=== PATIENT | female | born 1945 | race African-American/Black ===

== ENCOUNTER 2018-08-18 02:23 | Inpatient (IN) | payer MEDICARE, MEDICAID ==
[2018-08-18] MEDS ORDERED: Morphine 4 MG/ML VIAL ONE (03:25)
[2018-08-18] MEDS ORDERED: Ondansetron PF 4 MG/2 ML Vial ONE (03:25)
[2018-08-18 04:09] VITALS: BMI 22.4
[2018-08-18] MEDS ORDERED: Ondansetron ODT 4 MG TAB SL PRN (04:12)
[2018-08-18] MEDS ORDERED: Acetaminophen 325 MG TAB PO PRN ×2 (04:12→08:06)
[2018-08-18] MEDS ORDERED: Morphine 4 MG/ML VIAL SLOW IVP PRN (04:12)
[2018-08-18] MEDS ORDERED: Ondansetron PF 4 MG/2 ML Vial IVP PRN ×2 (04:12→08:06)
[2018-08-18] MEDS: Sodium Chloride 0.9% 1,000 ML IV SCH ×4 (04:24→21:02)
[2018-08-18] MEDS ORDERED: Bisacodyl 5 MG TAB PO PRN (08:06)
[2018-08-18] MEDS ORDERED: Bisacodyl 10 MG SUPP PR PRN (08:06)
[2018-08-18] MEDS ORDERED: Ondansetron ODT 4 MG TAB PO PRN (08:06)
[2018-08-18] MEDS ORDERED: hydrALAZINE 20 MG/ML VIAL SLOW IVP PRN (08:09)
[2018-08-18] MEDS ORDERED: Morphine 2 MG/ML SYRINGE SLOW IVP PRN (08:11)
[2018-08-18] MEDS: HYDROcodone/Acetaminophen 5/325 mg Tablet PO PRN (08:51)
[2018-08-18] MEDS: Famotidine 20 MG TAB PO SCH ×2 (08:51→20:12)
[2018-08-18] MEDS: Senokot S 8.6-50 MG TAB PO SCH ×2 (08:51→20:12)
[2018-08-18] MEDS: Piperacillin/Tazobactam 3.375 GM in Sodium Chloride 0.9% 100 ML IVPB SCH ×2 (09:06→15:02)
[2018-08-18 10:02] LABS: Hemoglobin A1c 5.4 % (4.0-6.0)
[2018-08-18 10:10] LABS: Lactic Acid 1.2 mmol/L (0.5-2.2)
--- NOTE | 2018-08-18 16:43 | HP ---
DATE OF ADMISSION: 08/18/2018 PRIMARY CARE PHYSICIAN: None. CHIEF COMPLAINT: Left breast pain. HISTORY OF PRESENT ILLNESS: The patient is a 73-year-old female with hypertension, degenerative joint disease and tobacco dependence, presented to the emergency room at [facility] with left breast pain that has been worsening over the last week. Approximately 4 weeks ago, the patient noticed swelling along with pain from her left breast that is progressively getting worse. Around 2 weeks ago, she noticed bleeding from the skin lesions over the left breast. She also lost approximately 15-20 pounds over the past year. No nausea, vomiting, diarrhea, constipation or injuries reported. She also has generalized body aches, especially in the joints. She denies any other symptoms. In the emergency room, initial vital signs showed temperature 97.9, respirations 20, pulse of 119 with blood pressure 133/80 with O2 saturation of 96% on room air. She received vancomycin, ceftriaxone, morphine with IV fluid in the emergency room. PAST MEDICAL HISTORY: 1. Hypertension. 2. Degenerative joint disease. PAST SURGICAL HISTORY: Left knee surgery. ALLERGIES: No known drug allergies. CURRENT HOME MEDICATIONS: 1. Hydrochlorothiazide 25 mg daily. 2. Meloxicam 15 mg daily. SOCIAL HISTORY: The patient currently lives at home with her family. She has approximately 60-[id number]-[id number] smoking history. She continues to smoke up to half pack a day. She also has a history of cannabis abuse in the past. Full code. Makes her own decisions with the help of her family. FAMILY HISTORY: Positive for heart disease. She denies any malignancy in her family. REVIEW OF SYSTEMS: The following complete review of systems was negative, unless otherwise mentioned in the HPI or below: Constitutional: Weight loss or gain, ability to conduct usual activities. Skin: Rash, itching. Eyes: Double vision, pain. ENT/Mouth: Nose bleeding, neck stiffness, pain, tenderness. Cardiovascular: Palpitations, dyspnea on exertion, orthopnea. Respiratory: Shortness of breath, wheezing, cough, hemoptysis, fever or night sweats. Gastrointestinal: Poor appetite, abdominal pain, heartburn, nausea, vomiting, constipation, or diarrhea. Genitourinary: Urgency, frequency, dysuria, nocturia. Musculoskeletal: Pain, swelling. Neurologic/Psychiatric: Anxiety, depression. Allergy/Immunologic: Skin rash, bleeding tendency. PHYSICAL EXAMINATION: VITAL SIGNS: As discussed above. GENERAL: A 78-year-old female, in mild distress due to significant pain. SKIN: Examination shows significant erythema of the left breast along with ulceration. The nipple was retracted. There was some purulent discharge noted as well. There was diffuse tenderness. The lymph nodes could not be palpable in the left axilla due to significant pain. HEENT: Head, atraumatic, normocephalic. Sclerae are anicteric. Moist mucous membrane. No oral lesion. NECK: Supple, no JVD, no carotid bruit. LUNGS: Clear to auscultation bilaterally. No wheezing, rales or rhonchi. HEART: S1, S2 present. Regular rate and rhythm. No murmur, rubs or gallops appreciated. ABDOMEN: Soft, nontender, bowel sounds present. EXTREMITIES: No edema or calf tenderness. NEUROLOGIC: Grossly nonfocal, moves all four extremities. PSYCHIATRIC: Alert, awake and oriented x3. LABORATORY DATA: CBC showed WBC 6.5, hemoglobin 17, hematocrit 52.3, platelet 398,000. Chemistries showed sodium 134, potassium 3.7, chloride 98, bicarbonate 23, BUN 25, creatinine 1.57. Lactic acid 2.8. Repeat lactic acid 1.2. IMAGING: Chest x-ray by my review was negative for infiltrate. Telemetry monitoring by my review showed sinus tachycardia. IMPRESSION: 1. Sepsis with acute organ dysfunction secondary to left mastitis, rule out malignancy. 2. Hypertension. 3. Tobacco dependence. 4. Cannabis abuse. 5. Dehydration. 6. Acute kidney injury versus chronic kidney disease. 7. Mild hyponatremia. 8. Lactic acidosis secondary to sepsis with acute organ dysfunction. PLAN: The patient will be monitored on the medical floor. We will continue empiric antibiotics. Pain control with IV morphine as well as hydrocodone. IV fluids. Tobacco cessation was advised. Consult Infectious Disease. I discussed with General Surgery, Dr. Posadas. Dr. Posadas recommended follow up with Dr. Geller as outpatient for breast biopsy to rule out malignancy. We will consult Wound Care. Vital signs q.4 hourly. Plan of care was discussed with the patient in detail. She stated understanding. MTDD
--- NOTE | 2018-08-18 21:27 | CON ---
DATE OF CONSULTATION: 08/18/2018 REASON FOR CONSULTATION: Left breast inflammatory process. HISTORY OF PRESENT ILLNESS: A 73-year-old first admission to this hospital with a history of hyperte nsion, degenerative joint disease, reportedly developed what she describes as a boil under the left b reast. It is not clear exactly when and she states that maybe a month ago or maybe longer. It has e xtended now to the remainder of the breast and she has this inflammatory process and she was admitted for management. She has lost 15-20 pounds over the past year. Never had a mammogram. No fever or chills, no headaches, no visual symptoms, sore throat, odynophagia, dysphagia, no dyspnea, no back pa in, no abdominal pain or diarrhea. No genitourinary symptoms. No joint symptoms. PAST MEDICAL HISTORY: 1. Hypertension. 2. Degenerative joint disease. PAST SURGICAL HISTORY: Left knee arthroscopy. ALLERGIES: None. MEDICATIONS AT HOME: Hydrochlorothiazide, meloxicam and here she is on [place], Dulcolax, Pepcid, Apre soline, morphine, Zofran, Zosyn. OBJECTIVE: VITAL SIGNS: With normal temperature, blood pressure 103/67, pulse 89, respirations 18, O2 sat 93%. SKIN: Shows this area of inflammatory change encompassing the entire left breast with areas of darke ry of the skin and epidermolysis. The entire breast has a very hard consistency with a mass-like c onsistency. The nipple is retracted and edema into the underlying breast tissue and masses. She ally ears to have a hard in the lymph node in the left axilla. There are no other areas of lymphadenopath y. HEENT: Ocular movements are conjugate. Oral cavity normal. NECK: Supple. LUNGS: Symmetric clear breath sounds. HEART: S1, S2, regular rate. No S3, S4. ABDOMEN: Soft, not distended or tender. No ascites. No bladder distention. EXTREMITIES: No joint inflammatory activity outside the area of involvement. NEUROLOGIC: Nonfocal including cognitive function. LABORATORY DATA: White cell count 6.5, hemoglobin 17, platelets 398 with a normal differential. Shannan priscila with a sodium 134, creatinine 1.57. Lactic acid 1.2, calcium 10.2, AST 65, ALT 35, albumin 3. 6. Urinalysis with greater than 50 to too numerous to count wbc's. Chest x-ray with no lung process . ASSESSMENT: Inflammatory mass left breast, likely inflammatory breast cancer. I do not believe that this patient has superimposed infection. The management would be Oncology consultation and she will need a biopsy and treatment likely with chemotherapy and surgical resection followed by radiation th [place]. Discontinue Zosyn.
[2018-08-19] MEDS: HYDROcodone/Acetaminophen 5/325 mg Tablet PO PRN ×2 (00:10→09:58)
[2018-08-19] MEDS: Sodium Chloride 0.9% 1,000 ML IV SCH ×2 (03:46→10:53)
[2018-08-19 04:39] LABS: #Eosinphils 0.1 thou/uL (0.0-0.7); #Lymphocytes 1.7 thou/uL (1.20-3.40); #Monocytes 0.5 thou/uL (0.11-0.59); #Neutrophils 2.9 thou/uL (1.40-6.50); %Basophils 0.3 % (0.0-1.0); %Eosinophils 1.4 % (0.0-10.0); %Lymphocytes 32.4 % (21.0-51.0); %Monocytes 10.1 % (0.0-10.0); %Neutrophils 55.9 % (42.0-75.0); Hemoglobin 13.1 g/dL (12.0-16.0); Mean Corpuscular HGB CONC 31.7 g/dL (32.0-36.0); Mean Corpuscular Volume 97.8 fL (78.0-98.0); Mean Platelet Volume 7.1 fL (7.4-10.4); Platelet Count 302 thou/uL (130-400); RBC Distribution Width 12.1 % (11.5-14.5); Red Blood Cell (RBC) Count 4.22 mill/uL (4.20-5.40); White Blood Cell (WBC) Count 5.3 thou/uL (4.8-10.8)
[2018-08-19 05:12] LABS: Anion Gap 10 mmol/L (10-20); BUN (Urea Nitrogen) 22 mg/dL (9.8-20.1); Calc. Creatinine Clearance 64 mL/min (70-130); Calcium 8.2 mg/dL (7.8-10.44); Carbon Dioxide 23 mmol/L (23-31); Chloride 108 mmol/L (98-107); Estimated GFR-MDRD 82; Glucose 101 mg/dL (83-110); Potassium 3.3 mmol/L (3.5-5.1); Sodium 138 mmol/L (136-145)
[2018-08-19] MEDS ORDERED: Potassium Chloride 20 MEQ TAB PO SCH (08:00)
[2018-08-19] MEDS: Senokot S 8.6-50 MG TAB PO SCH (08:05)
[2018-08-19] MEDS: Famotidine 20 MG TAB PO SCH (08:05)
--- NOTE | 2018-08-19 13:18 | ULT ---
LEFT BREAST ULTRASOUND: History: Bleeding and irregularity involving the left breast x 2-3 weeks. Comparison: None. Technique: Targeted sonographic imaging of the left breast was performed. Static images are reviewed. Additional imaging was performed in the presence of the radiologist. FINDINGS: Static and real-time images demonstrate extensive irregularity involving the breast parenchyma with h eterogeneous echotexture and irregular margination. Small areas of shadowing are noted. The left danitza st skin appears to be ulcerative and irregular with patchy areas of thickening. These features are wo rrisome for inflammatory breast carcinoma until proven otherwise. IMPRESSION: Probable left breast inflammatory cancer until proven otherwise. General surgical consultation is rec ommended. Results of study discussed with Dr. Uirbe 11:21 a.m. on 08-19-18. Code IMELDA POS: RAFIQ
[2018-08-19 14:06] VITALS: BP 122/70; TEMP 98.1
--- NOTE | 2018-08-19 20:17 | DIS ---
DATE OF DISCHARGE: 08/19/2018 DISCHARGE DISPOSITION: Home. FOLLOWUP: Follow up with primary care physician at [facility] in 1 week. Follow up with Dr Sascha Li on Friday at 11:30 a.m. ALLERGIES: No known drug allergies. The patient was seen and examined on the day of discharge. Denies any new complaints. BRIEF HOSPITAL COURSE: The patient is a 73-year-old female with hypertension and tobacco dependence, presented to the hospital with intractable pain over her left breast that has been ongoing for last 2-3 weeks. She has also lost approximately 15-20 pounds over the past year. Please refer to the his tory and physical for further details. The patient was admitted to the hospital with a diagnosis of sepsis secondary to suspected left masti tis. She was started on IV antibiotics. She was evaluated by Dr. Rogel. According to Dr. Rogel, th e patient probably has an inflammatory breast cancer. Dr. Rogel discontinued IV antibiotics. The martha ramon had a left breast ultrasound done today that showed probable left breast inflammatory cancer. She will follow up with Dr. Li on Friday for possible biopsy. Plan of care was discussed with t dalila patient and the family in detail. They stated understanding. FINAL DIAGNOSES: 1. Systemic inflammatory response syndrome secondary to suspected inflammatory left breast cancer, m astitis ruled out. 2. . 3. Tobacco dependence. 4. Cannabis abuse. 5. Dehydration. 6. Acute kidney injury on chronic kidney disease stage 2. 7. Hypokalemia, replaced. 8. Mild hyponatremia. 9. Lactic acidosis secondary to dehydration. 10. Repeat BMP next week is recommended. Primary care physician is advised to follow.
== END 2018-08-19 14:22 | disposition home or self-care (01) | DRG 598 ==
LOC: ERS 02:23 → 2NO 03:47 → T4-B 12:32
PROVIDERS: ADMIT Internal Medicine; ATTEND Internal Medicine
DX: C50.912 Malignant neoplasm of unspecified site of left female breast (principal); R65.10 Systemic inflammatory response syndrome (SIRS) of non-infectious origin without acute organ dysfunction; N17.9 Acute kidney failure, unspecified; E87.1 Hypo-osmolality and hyponatremia; E87.2 Acidosis; I10 Essential (primary) hypertension; M19.90 Unspecified osteoarthritis, unspecified site; Z79.899 Other long term (current) drug therapy; F17.210 Nicotine dependence, cigarettes, uncomplicated; F12.10 Cannabis abuse, uncomplicated; E86.0 Dehydration; N18.2 Chronic kidney disease, stage 2 (mild); E87.6 Hypokalemia
CPT/HCPCS: 36415; 80048; 83036; 83605; 85025; 87086; 90471; 90662; 96374; 96375; 99406; G0008; J2270; J2405; J2543; J7050; Q0162

== ENCOUNTER 2018-08-25 07:44 | Outpatient (CLI) | payer MEDICARE, MEDICAID | END 2018-08-25 07:45 | disposition home or self-care (01) | LOC: BICMAMMO 07:44 | PROVIDERS: ATTEND Surgery | DX: N64.59 Other signs and symptoms in breast (principal) | CPT/HCPCS: 77066; G0279 ==

== ENCOUNTER 2018-08-28 12:10 | Day surgery (SDC) | payer MEDICARE, MEDICAID ==
[2018-08-27 14:25] VITALS: BMI 23.3
[~2018-08-28 12:10] MED LIST: Dexamethasone 20 MG/5 ML VIAL ONE; Lidocaine 1% PF 5 ML VIAL ONE; Ondansetron PF 4 MG/2 ML Vial ONE; PHENYLEPHRINE-NS 100 MCG/ML 10 ML SYRINGE ONE; PROPOFOL 200 MG/20 ML VIAL ONE; ePHEDrine/0.9% NaCl/PF SYRINGE 50 mg/10 ml ONE
[2018-08-28] MEDS ORDERED: Ketorolac Tromethamine 30 MG/ML VIAL ONE (13:09)
[2018-08-28] MEDS ORDERED: CEFAZOLIN 2 GM/50 ML BAG ONE (13:09)
[2018-08-28] MEDS ORDERED: Lidocaine 2% PF 5 ML VIAL ONE (15:34)
[2018-08-28] MEDS ORDERED: Bupivacaine/Epinephrine 0.25% 30 ML VIAL ONE (15:34)
[2018-08-28] MEDS ORDERED: Fentanyl 100 MCG/2 ML VIAL ONE (15:44)
[2018-08-28] MEDS ORDERED: Midazolam HCl 2 mg/2 ml Vial ONE (15:44)
[2018-08-28] MEDS ORDERED: HYDROcodone/Acetaminophen 5/325 mg Tablet ONE (18:30)
--- NOTE | 2018-08-28 20:03 | RAD ---
SINGLE VIEW OF THE CHEST: Comparison: 08-17-18 History: Post op Mediport placement. FINDINGS: Single view of the chest shows a normal sized cardiomediastinal silhouette with atherosclerotic calci fications in the aorta. There is a right sided Mediport with its tip in the superior vena cava. No pn eumothorax is seen. There is no evidence of consolidation, mass, or pleural effusion. IMPRESSION: Status post Mediport placement without evidence of complication. POS: KAYLEE
--- NOTE | 2018-09-01 16:28 | OP ---
DATE OF PROCEDURE: 08/28/2018 PROCEDURE PERFORMED: Right subclavian MediPort and biopsy of right inferior breast skin. PREOPERATIVE DIAGNOSIS: Inflammatory breast cancer of the left breast. POSTOPERATIVE DIAGNOSIS: Inflammatory breast cancer of the left breast. HISTORY: Ms. Sinha is a 73-year-old woman, who presented with severe locally advanced inflammatory breast cancer of the left breast. She underwent biopsies to confirm for diagnosis and a contralateral mammogram, which showed some suspicious skin thickening in the inferior breast. Recommendation was made to proceed to the operating room for MediPort placement for chemotherapy, as well as a skin biopsy of the right inferior breast. DESCRIPTION OF PROCEDURE: After informed consent was obtained and appropriate preoperative antibiotics were administered, the patient was taken to the operating room, where she was placed in supine position and anesthesia was administered. She was prepped and draped in a standard sterile fashion and local anesthesia infused through the skin and subcutaneous tissues at the right deltopectoral groove. The patient was placed into Trendelenburg position and the right subclavian vein was accessed by the standard approach without difficulty. There was excellent flow of dark venous nonpulsatile blood and a wire threaded easily without resistance. This was confirmed to be in the superior vena cava by fluoroscopy. Additional local anesthesia was infused to the skin and subcutaneous tissues of the right chest and a skin incision was made. The subcutaneous pocket was created and the low-profile MediPort tubing placed into the pocket and secured with Prolene sutures. A sheath and dilator were then placed over the wire and the wire and dilator removed leaving the sheath in place, and MediPort tubing was obtained and clamped. The tubing was advanced through the sheath, which was split and removed leaving the tubing in place. The tip was confirmed to be in good position in the superior vena cava. The tubing was then clamped at the level of the skin, cut, and secured to the MediPort hub. The MediPort was aspirated using a Arevalo needle and there was excellent flow of dark venous nonpulsatile blood and the port flushed easily without resistance. The subcutaneous tissues were reapproximated with a 3-0 running Monocryl suture and the skin was closed with a running 4-0 subcuticular Monocryl suture and Dermabond dressing placed. Attention was then turned to the skin biopsy. The most thickened area of the right inferior breast was identified. Local anesthesia was infused and a punch biopsy obtained. This was sent to pathology and the skin incision closed with a nylon suture. Sterile dressing was applied and the patient was taken to Recovery in good condition. ESTIMATED BLOOD LOSS: Minimal. COMPLICATIONS: There were no complications. SPECIMENS: Right breast skin biopsy. Job ID: [id number] [facility]
== END 2018-08-28 18:38 | disposition home or self-care (01) ==
LOC: SDC 12:10
PROVIDERS: ATTEND Surgery
PROC: 0JH63WZ Insertion of Totally Implantable Vascular Access Device into Chest Subcutaneous Tissue and Fascia, Percutaneous Approach (ICD-10-PCS; principal; 2018-08-28)
PROC: 0HBU3ZX Excision of Left Breast, Percutaneous Approach, Diagnostic (ICD-10-PCS; 2018-08-28)
DX: C50.912 Malignant neoplasm of unspecified site of left female breast (principal); M10.9 Gout, unspecified; F41.9 Anxiety disorder, unspecified; F17.200 Nicotine dependence, unspecified, uncomplicated; I10 Essential (primary) hypertension; Z79.1 Long term (current) use of non-steroidal anti-inflammatories (NSAID); Z79.899 Other long term (current) drug therapy
CPT/HCPCS: 19101; 36561; 71045; 88305; C1788; J0131; J1100; J1642; J1885; J2001; J2250; J2405; J2704; J3010

== ENCOUNTER 2018-09-01 12:26 | Outpatient (CLI) | payer MEDICARE, MEDICAID | END 2018-09-01 12:27 | disposition home or self-care (01) | LOC: ULT 12:26 | PROVIDERS: ATTEND Internal Medicine Hematology & Oncology | DX: Z51.11 Encounter for antineoplastic chemotherapy (principal); C50.112 Malignant neoplasm of central portion of left female breast; I08.1 Rheumatic disorders of both mitral and tricuspid valves; Z79.899 Other long term (current) drug therapy | CPT/HCPCS: 93306 ==

== ENCOUNTER 2018-09-03 12:29 | Outpatient (CLI) | payer MEDICARE, MEDICAID ==
--- NOTE | 2018-09-03 17:41 | PET ---
NUCLEAR MEDICINE FDG PET CT: (Positron Emission Tomography) DATE: 09/03/18 HISTORY: 73-year-old female with left inflammatory breast cancer, C50.112, initial staging. The patient has no t had chemotherapy or radiation therapy. COMPARISON: None. TECHNIQUE: IV injection F-18 Fluorodeoxyglucose (FDG) dose: 12.2 mCi PET and attenuation-correction CT performed from skull base to proximal thighs. FINDINGS: SUV (standard uptake value) numbers given are QCLR maximum SUV's: In the region of the left anterolateral oral cavity, there is a region of very high FDG uptake, SUV 1 1.2. Perhaps this is related to infectious/inflammatory process, or recent dental extraction or other procedure. Neoplasm could also have this appearance, but clinical correlation is recommended. Increa sed uptake in the left posterior larynx in the vicinity of the left cricoarytenoid joint could be due to vocalization. Neoplasm can also have this appearance, but is considered less likely. Recommend co rrelation with laryngoscopy (SUV 4.5). There is no evidence of malignant cervical lymphadenopathy. There is a large soft tissue density lesion occupying the left breast with SUV of 6.5 consistent with the history of breast cancer. There is also diffuse fat stranding and soft tissue thickening through out the dermis of the left breast with broad regions of borderline increased uptake (SUV 3.0). In the medial aspect of the left breast skin, there are two small foci of especially increased FDG up take, with SUV's of 4.7 and 4.6, which may represent two foci of actual neoplastic activity rather th an just inflammation. There is diffusely increased thickness of the left pectoralis major and left pectoralis minor muscles . There are regions of borderline increased uptake in these muscle (SUV 2.7), which are indeterminate for tumor activity. Similarly, a small focus resting on the anterior surface of the sternum, has SUV of 2.5. At the left axillary skin surface, there is a region of soft tissue thickening with SUV of 3 .6. These could either represent postsurgical or postbiopsy changes, or neoplastic activity. Deep to that, at the junction between the left axilla and breast, there is a broader region of increased FDG uptake, with SUV of 3.0 with similar differential diagnosis. There is a small left pleural effusion. In the posterior basilar portion of the left lower lobe, ther e is a moderate sized region of consolidation of lung with SUV of 3.7, favored to represent infectiou s or inflammatory changes. There are adjacent nodular interstitial densities, including tree-in-bud pattern, in a broad region a t the left lower lobe, and the medial portion of the anterior segment of the left upper lobe. These c ould represent an infectious/inflammatory process. There is a possibility that this could also repres ent lymphangitic carcinomatosis. These do not have increased FDG uptake. No definite evidence of hilar or mediastinal lymphadenopathy. Left anterior hilar lymph node has SUV of 2.7. No pleural effusion on the contralateral right side. No convincing evidence of metastatic dis ease in the abdominal cavity or pelvic cavity. There is unilateral extensive subcutaneous edema or hematoma in the left flank soft tissues posterola teral and superficial to the lateral abdominal wall, without increased FDG uptake. There is a slightl y enlarged contralateral right axillary lymph node with SUV of 1.8. IMPRESSION: 1. Left breast cancer, with apparently large main tumor vs postoperative hematoma. 2. Extensive edema in the left breast overlying skin, and left pectoralis musculature, with bord beau or minimally increased FDG uptake, are evidence for inflammatory breast cancer. 3. Two small focal dermal lesions with increased FDG uptake at the medial skin of the left breas t could represent tumor nodules or postsurgical or postbiopsy sites. 4. The same is true for an area of increased uptake in the superficial portion of the left axill a. 5. Small left pleural effusion and left lower lobe consolidation, favored to represent pneumonit is. 6. No evidence of distant metastasis. 7. Increased FDG uptake in the left side of the oral cavity and in the larynx. These are probabl y not areas of neoplastic activity, but direct visualization is recommended. 8. Broad region of edema which could represent a hematoma in the superficial soft tissues of the left flank. 9. Tree-in-bud patterns at the anterior segment of the left upper lobe and in the left lower lob e. Possibilities include infectious peribronchiolitis versus lymphangitic carcinomatosis. SULEIMAN Jaffe POS: RAFIQ
== END 2018-09-03 12:30 | disposition home or self-care (01) ==
LOC: PET 12:29
PROVIDERS: ATTEND Internal Medicine Hematology & Oncology
DX: C50.912 Malignant neoplasm of unspecified site of left female breast (principal); N64.89 Other specified disorders of breast; J90 Pleural effusion, not elsewhere classified; J18.1 Lobar pneumonia, unspecified organism
CPT/HCPCS: 78815; A9552

== ENCOUNTER 2018-09-25 09:24 | Day surgery (SDC) | payer MEDICARE, MEDICAID ==
[2018-09-25] MEDS ORDERED: Sodium Chloride 0.9% 40 ML ONE (09:28)
[2018-09-25 10:39] VITALS: BP 160/88; TEMP 98.5
[2018-09-25] MEDS ORDERED: DOXORUBICIN SLOW IVP SCH (10:45)
[2018-09-25] MEDS ORDERED: ADMIXTURE FEE CHEMO SLOW IVP SCH (10:45)
[2018-09-25] MEDS ORDERED: Cyclophosphamide 1 GM in Sodium Chloride 0.9% 250 ML 250 ML IVPB SCH (11:00)
[2018-09-25] MEDS ORDERED: Pegfilgrastim Onpro 6 MG/0.6 ML SQ SCH (11:00)
[2018-09-25] MEDS ORDERED: PALONOSETRON HCL 0.05 MG/ML 5 ML VIAL IVP SCH (11:00)
[2018-09-25] MEDS ORDERED: Dexamethasone 10 MG/ML VIAL SLOW IVP SCH (11:00)
[2018-09-25] MEDS ORDERED: DOXORUBICIN 100 MG in Sodium Chloride 0.9% 50 ML IVPB SCH (11:30)
== END 2018-09-25 15:10 | disposition home or self-care (01) ==
LOC: ONC/OP 09:24
PROVIDERS: ATTEND Internal Medicine Hematology & Oncology
DX: Z51.11 Encounter for antineoplastic chemotherapy (principal); C50.112 Malignant neoplasm of central portion of left female breast; F33.1 Major depressive disorder, recurrent, moderate
CPT/HCPCS: 80053; 82248; 83615; 84100; 84550; 96375; 96377; 96413; 96417; 99211; G0463; J1100; J2469; J2505; J7050; J9000; J9070

== ENCOUNTER 2018-10-09 09:36 | Day surgery (SDC) | payer MEDICARE, MEDICAID ==
[2018-10-09] MEDS ORDERED: Sodium Chloride 0.9% 20 ML ONE (09:48)
[2018-10-09] MEDS ORDERED: DOXORUBICIN 100 MG in Sodium Chloride 0.9% 50 ML IVPB SCH (10:00)
[2018-10-09] MEDS ORDERED: Pegfilgrastim Onpro 6 MG/0.6 ML SQ SCH (10:00)
[2018-10-09] MEDS ORDERED: Dexamethasone 10 MG/ML VIAL SLOW IVP SCH (10:00)
[2018-10-09] MEDS ORDERED: PALONOSETRON HCL 0.05 MG/ML 5 ML VIAL IVP SCH (10:00)
[2018-10-09] MEDS ORDERED: Cyclophosphamide 1 GM in Sodium Chloride 0.9% 250 ML 250 ML IVPB SCH (10:00)
[2018-10-09 10:17] VITALS: BP 109/61; TEMP 98.3
== END 2018-10-09 13:41 | disposition home or self-care (01) ==
LOC: ONC/OP 09:36
PROVIDERS: ATTEND Internal Medicine Hematology & Oncology
DX: Z51.11 Encounter for antineoplastic chemotherapy (principal); C50.112 Malignant neoplasm of central portion of left female breast; F33.1 Major depressive disorder, recurrent, moderate
CPT/HCPCS: 36415; 80053; 82248; 83615; 84100; 84550; 96375; 96377; 96413; 96417; J1100; J1642; J2469; J2505; J7050; J9000; J9070

== ENCOUNTER 2018-10-30 11:54 | Day surgery (SDC) | payer MEDICARE, MEDICAID ==
[2018-10-30 12:12] VITALS: BP 146/73; TEMP 98.6
[2018-10-30] MEDS ORDERED: DOXORUBICIN 100 MG in Sodium Chloride 0.9% 50 ML IVPB SCH (12:15)
[2018-10-30] MEDS ORDERED: Cyclophosphamide 1 GM in Sodium Chloride 0.9% 250 ML 250 ML IVPB SCH (12:15)
[2018-10-30] MEDS ORDERED: Pegfilgrastim Onpro 6 MG/0.6 ML SQ SCH (12:15)
[2018-10-30] MEDS ORDERED: Dexamethasone 10 MG/ML VIAL SLOW IVP SCH (12:15)
[2018-10-30] MEDS ORDERED: PALONOSETRON HCL 0.05 MG/ML 5 ML VIAL IVP SCH (12:15)
== END 2018-10-30 15:32 | disposition home or self-care (01) ==
LOC: ONC/OP 11:54
PROVIDERS: ATTEND Internal Medicine Hematology & Oncology
DX: Z51.11 Encounter for antineoplastic chemotherapy (principal); C50.112 Malignant neoplasm of central portion of left female breast; F33.1 Major depressive disorder, recurrent, moderate; Z79.1 Long term (current) use of non-steroidal anti-inflammatories (NSAID); Z79.899 Other long term (current) drug therapy
CPT/HCPCS: 36415; 80053; 82248; 83615; 84100; 84550; 96375; 96377; 96413; 96417; J1100; J2469; J2505; J7050; J9000; J9070

== ENCOUNTER 2018-11-13 00:08 | Day surgery (SDC) | payer MEDICARE, MEDICAID ==
[2018-11-13] MEDS ORDERED: Dexamethasone 10 MG/ML VIAL SLOW IVP SCH (06:15)
[2018-11-13] MEDS ORDERED: DOXORUBICIN 100 MG in Sodium Chloride 0.9% 50 ML IVPB SCH (06:15)
[2018-11-13] MEDS ORDERED: PALONOSETRON HCL 0.05 MG/ML 5 ML VIAL IVP SCH (06:15)
[2018-11-13] MEDS ORDERED: Pegfilgrastim Onpro 6 MG/0.6 ML SQ SCH (06:15)
[2018-11-13] MEDS ORDERED: Cyclophosphamide 1 GM in Sodium Chloride 0.9% 250 ML 250 ML IVPB SCH (06:15)
[2018-11-13] MEDS ORDERED: Sodium Chloride 0.9% 20 ML ONE (11:30)
[2018-11-13 12:35] VITALS: BP 154/76; TEMP 98.7
== END 2018-11-13 13:39 | disposition home or self-care (01) ==
LOC: ONC/OP 00:08
PROVIDERS: ATTEND Internal Medicine Hematology & Oncology
DX: Z51.11 Encounter for antineoplastic chemotherapy (principal); C50.112 Malignant neoplasm of central portion of left female breast; F33.1 Major depressive disorder, recurrent, moderate; F41.9 Anxiety disorder, unspecified; Z17.1 Estrogen receptor negative status [ER-]
CPT/HCPCS: 36415; 80053; 82248; 83615; 84100; 84550; 96375; 96377; 96413; 96417; J1100; J1642; J2469; J2505; J7050; J9000; J9070

== ENCOUNTER 2018-11-27 11:04 | Day surgery (SDC) | payer MEDICARE, MEDICAID ==
[~2018-11-27 11:04] MED LIST changes: +Dexamethasone 10 MG in Sodium Chloride 0.9% 50 ML IVPB SCH; -Dexamethasone 20 MG/5 ML VIAL ONE; -Lidocaine 1% PF 5 ML VIAL ONE; -Ondansetron PF 4 MG/2 ML Vial ONE; +PACLITAXEL IV SCH; -PHENYLEPHRINE-NS 100 MCG/ML 10 ML SYRINGE ONE; -PROPOFOL 200 MG/20 ML VIAL ONE; +SODIUM CHLORIDE 0.9% IV SCH; +diphenhydrAMINE 50 MG/ML VIAL IVP PRN; -ePHEDrine/0.9% NaCl/PF SYRINGE 50 mg/10 ml ONE
[2018-11-27] MEDS ORDERED: Sodium Chloride 0.9% 20 ML ONE (11:06)
[2018-11-27 11:48] VITALS: BP 102/64; TEMP 98.5
== END 2018-11-27 13:04 | disposition home or self-care (01) ==
LOC: ONC/OP 11:04
PROVIDERS: ATTEND Internal Medicine Hematology & Oncology
DX: Z51.11 Encounter for antineoplastic chemotherapy (principal); C50.112 Malignant neoplasm of central portion of left female breast; F33.1 Major depressive disorder, recurrent, moderate; Z17.1 Estrogen receptor negative status [ER-]; Z79.899 Other long term (current) drug therapy
CPT/HCPCS: 36415; 80053; 82248; 83615; 84100; 84550; 96375; 96413; J1100; J1642; J7050; J9267

== ENCOUNTER 2018-12-04 10:47 | Day surgery (SDC) | payer MEDICARE, MEDICAID ==
[2018-12-04 11:14] VITALS: BP 123/76; TEMP 98.6
== END 2018-12-04 13:20 | disposition home or self-care (01) ==
LOC: ONC/OP 10:47
PROVIDERS: ATTEND Internal Medicine Hematology & Oncology
DX: Z51.11 Encounter for antineoplastic chemotherapy (principal); C50.112 Malignant neoplasm of central portion of left female breast; F33.1 Major depressive disorder, recurrent, moderate; Z17.1 Estrogen receptor negative status [ER-]
CPT/HCPCS: 96375; 96413; J1100; J1200; J7050; J9267

== ENCOUNTER 2018-12-11 10:55 | Day surgery (SDC) | payer MEDICARE, MEDICAID ==
[2018-12-11] MEDS ORDERED: Sodium Chloride 0.9% 30 ML ONE (11:04)
== END 2018-12-11 13:26 | disposition home or self-care (01) ==
LOC: ONC/OP 10:55
PROVIDERS: ATTEND Internal Medicine Hematology & Oncology
DX: Z51.11 Encounter for antineoplastic chemotherapy (principal); C50.112 Malignant neoplasm of central portion of left female breast; F33.1 Major depressive disorder, recurrent, moderate
CPT/HCPCS: 96375; 96413; J1100; J1200; J1642; J7050; J9267

== ENCOUNTER 2018-12-21 11:50 | Day surgery (SDC) | payer MEDICARE, MEDICAID ==
[~2018-12-21 11:50] MED LIST changes: -Dexamethasone 10 MG in Sodium Chloride 0.9% 50 ML IVPB SCH; +Dexamethasone 4 MG in Sodium Chloride 0.9% 50 ML IVPB SCH; +Dexamethasone 4 mg/ml Vial SLOW IVP SCH; +Sodium Chloride 0.9% 20 ML ONE
[2018-12-21] MEDS ORDERED: Dexamethasone 4 mg/ml Vial SLOW IVP SCH (12:15)
[2018-12-21] MEDS ORDERED: diphenhydrAMINE 50 MG/ML VIAL ONE (12:33)
[2018-12-21 12:38] VITALS: BP 141/76; TEMP 98.8
[2018-12-21] MEDS ORDERED: PACLITAXEL IVPB SCH (13:00)
[2018-12-21] MEDS ORDERED: SODIUM CHLORIDE 0.9% IVPB SCH (13:00)
== END 2018-12-21 16:59 | disposition home or self-care (01) ==
LOC: ONC/OP 11:50
PROVIDERS: ATTEND Internal Medicine Hematology & Oncology
DX: Z51.11 Encounter for antineoplastic chemotherapy (principal); C50.112 Malignant neoplasm of central portion of left female breast; Z79.1 Long term (current) use of non-steroidal anti-inflammatories (NSAID); Z79.899 Other long term (current) drug therapy; F33.1 Major depressive disorder, recurrent, moderate
CPT/HCPCS: 36415; 85025; 96375; 96413; J1100; J1200; J1642; J7050; J9267

== ENCOUNTER 2019-01-01 10:33 | Day surgery (SDC) | payer MEDICARE, MEDICAID ==
[~2019-01-01 10:33] MED LIST changes: -Dexamethasone 4 mg/ml Vial SLOW IVP SCH; +Dexamethasone Sod Phosphate 4 MG in Sodium Chloride 0.9% 50 ML IVPB SCH; -PACLITAXEL IV SCH; +PACLITAXEL IVPB SCH; -SODIUM CHLORIDE 0.9% IV SCH; +SODIUM CHLORIDE 0.9% IVPB SCH; -Sodium Chloride 0.9% 20 ML ONE
[2019-01-01] MEDS ORDERED: Sodium Chloride 0.9% 30 ML ONE (10:41)
== END 2019-01-01 12:52 | disposition home or self-care (01) ==
LOC: ONC/OP 10:33
PROVIDERS: ATTEND Internal Medicine Hematology & Oncology
DX: Z51.11 Encounter for antineoplastic chemotherapy (principal); C50.112 Malignant neoplasm of central portion of left female breast; F33.1 Major depressive disorder, recurrent, moderate; Z79.1 Long term (current) use of non-steroidal anti-inflammatories (NSAID); Z79.899 Other long term (current) drug therapy
CPT/HCPCS: 96375; 96413; J1100; J1200; J1642; J7050; J9267

== ENCOUNTER 2019-01-08 10:15 | Day surgery (SDC) | payer MEDICARE, MEDICAID ==
[~2019-01-08 10:15] MED LIST changes: -Dexamethasone 4 MG in Sodium Chloride 0.9% 50 ML IVPB SCH
[2019-01-08] MEDS ORDERED: Sodium Chloride 0.9% 20 ML ONE (10:26)
[2019-01-08 12:50] VITALS: BP 153/74; TEMP 98.6
== END 2019-01-08 12:53 | disposition home or self-care (01) ==
LOC: ONC/OP 10:15
PROVIDERS: ATTEND Internal Medicine Hematology & Oncology
DX: Z51.11 Encounter for antineoplastic chemotherapy (principal); C50.112 Malignant neoplasm of central portion of left female breast; F33.1 Major depressive disorder, recurrent, moderate; Z88.8 Allergy status to other drugs, medicaments and biological substances
CPT/HCPCS: 96375; 96413; J1100; J1642; J7050; J9267

== ENCOUNTER 2019-01-14 10:27 | Day surgery (SDC) | payer MEDICARE, MEDICAID ==
[~2019-01-14 10:27] MED LIST changes: +Dexamethasone 4 MG in Sodium Chloride 0.9% 50 ML IVPB SCH; -Dexamethasone Sod Phosphate 4 MG in Sodium Chloride 0.9% 50 ML IVPB SCH; +EPOETIN ALFA-EPBX (ESRD) 40,000 UNIT/ML VIAL SC SCH
[2019-01-14] MEDS ORDERED: Sodium Chloride 0.9% 20 ML ONE (11:45)
== END 2019-01-14 16:26 | disposition home or self-care (01) ==
LOC: ONC/OP 10:27
PROVIDERS: ATTEND Internal Medicine Hematology & Oncology
DX: Z51.11 Encounter for antineoplastic chemotherapy (principal); C50.112 Malignant neoplasm of central portion of left female breast; F33.1 Major depressive disorder, recurrent, moderate
CPT/HCPCS: 96375; 96413; J1100; J1642; J7050; J9267

== ENCOUNTER 2019-01-22 10:29 | Day surgery (SDC) | payer MEDICARE, MEDICAID ==
[~2019-01-22 10:29] MED LIST changes: -EPOETIN ALFA-EPBX (ESRD) 40,000 UNIT/ML VIAL SC SCH
[2019-01-22] MEDS ORDERED: Sodium Chloride 0.9% 30 ML ONE (10:31)
[2019-01-22 12:23] VITALS: BP 116/60; TEMP 99.5
== END 2019-01-22 12:23 | disposition home or self-care (01) ==
LOC: ONC/OP 10:29
PROVIDERS: ATTEND Internal Medicine Hematology & Oncology
DX: Z51.11 Encounter for antineoplastic chemotherapy (principal); C50.112 Malignant neoplasm of central portion of left female breast; F33.1 Major depressive disorder, recurrent, moderate; Z17.1 Estrogen receptor negative status [ER-]
CPT/HCPCS: 36415; 80053; 82248; 83615; 84100; 84550; 96375; 96413; J1100; J1642; J7050; J9267

== ENCOUNTER 2019-01-29 12:12 | Day surgery (SDC) | payer MEDICARE, MEDICAID ==
[~2019-01-29 12:12] MED LIST changes: -Dexamethasone 4 MG in Sodium Chloride 0.9% 50 ML IVPB SCH; +Dexamethasone 4 mg/ml Vial SLOW IVP SCH; +FAMOTIDINE IVPB SCH
[2019-01-29] MEDS ORDERED: Sodium Chloride 0.9% 20 ML ONE (12:27)
[2019-01-29 13:14] VITALS: BP 110/60; TEMP 97.9
== END 2019-01-29 15:17 | disposition home or self-care (01) ==
LOC: ONC/OP 12:12
PROVIDERS: ATTEND Internal Medicine Hematology & Oncology
DX: Z51.11 Encounter for antineoplastic chemotherapy (principal); C50.112 Malignant neoplasm of central portion of left female breast; F33.1 Major depressive disorder, recurrent, moderate; Z17.1 Estrogen receptor negative status [ER-]
CPT/HCPCS: 96375; 96413; J1100; J1642; J7050; J9267; S0028

== ENCOUNTER 2019-02-05 10:28 | Day surgery (SDC) | payer MEDICARE, MEDICAID ==
[2019-02-05 11:10] VITALS: BP 101/57; TEMP 97.6
[2019-02-05] MEDS ORDERED: Sodium Chloride 0.9% 20 ML ONE (11:11)
== END 2019-02-05 12:34 | disposition home or self-care (01) ==
LOC: ONC/OP 10:28
PROVIDERS: ATTEND Internal Medicine Hematology & Oncology
DX: Z51.11 Encounter for antineoplastic chemotherapy (principal); C50.112 Malignant neoplasm of central portion of left female breast; F33.1 Major depressive disorder, recurrent, moderate; Z17.1 Estrogen receptor negative status [ER-]
CPT/HCPCS: 96375; 96413; J1100; J1642; J7050; J9267; S0028

== ENCOUNTER 2019-02-15 12:15 | Emergency (ER) | payer MEDICARE, MEDICAID ==
[2019-02-15] MEDS ORDERED: HYDROcodone/Acetaminophen 10/325 mg Tablet ONE (13:33)
== END 2019-02-15 16:13 | disposition home or self-care (01) ==
LOC: ERS 12:15
DX: M25.50 Pain in unspecified joint (principal); F17.210 Nicotine dependence, cigarettes, uncomplicated
CPT/HCPCS: 99283

== ENCOUNTER 2019-02-16 10:32 | Outpatient (CLI) | payer MEDICARE, MEDICAID ==
--- NOTE | 2019-02-16 14:38 | PET ---
PET CT: HISTORY: Left inflammatory breast cancer. Last chemotherapy on 02/05/17. Exam requested to evaluate response t o treatment. COMPARISON: PET CT dated 09/03/18. TECHNIQUE: PET scanning with CT attenuation correction was performed from the base of the brain through the prox imal thighs following the intravenous administration of 10.6 mCi F18-FDG in the right wrist. FINDINGS: No thania hypermetabolism is seen in the neck, chest, axilla, abdomen, or pelvis. There are patchy inf iltrates in the lungs bilaterally with increased FDG uptake. The maximum SUV is in the left lung base measuring 4.3. No hypermetabolic liver, adrenal, or skeletal lesions are seen. There is physiologic activity in the visualized portions of the brain, GI and tracts, and musculat ure. There is focally intense uptake in the region of the sella with a SUV of 14.2. I cannot be said with certainty if this is due to misregistration in the right sphenoid sinus or mass in the sella. IMPRESSION: 1. Patchy areas of increased FDG localization in the lungs are likely due to infection. Metastatic d isease cannot be completely excluded. 2. Focally increased uptake in the region of the sella. Further evaluation with MRI of the brain and sella with and without IV contrast should be performed. POS: RAFIQ
== END 2019-02-16 10:33 | disposition home or self-care (01) ==
LOC: PET 10:32
PROVIDERS: ATTEND Internal Medicine Hematology & Oncology
DX: C50.919 Malignant neoplasm of unspecified site of unspecified female breast (principal)
CPT/HCPCS: 78815; A9552

== ENCOUNTER 2019-03-03 10:20 | Outpatient (CLI) | payer MEDICARE, MEDICAID ==
--- NOTE | 2019-03-03 13:26 | MRI ---
MRI OF BRAIN WITH AND WITHOUT CONTRAST: 03/03/19 INDICATION: History of breast cancer. Evaluate for intracranial metastases. FINDINGS: There is age appropriate size of the ventricular system. No acute territorial infarction or intracran ial mass effect/midline shift. No discrete enhancing intra-axial lesions, although there is limitatio ns by the degree of persistent patient motion. There is moderate chronic ischemic disease involving cerebral white matter and the charbel. Evaluation of the sella performed with pre and postcontrast imaging, multiphase. There is a mass situ ated within the right aspect of the sella with a diameter of 1 cm x 0.9 cm x 0.9 cm. Mass is hypo att enuating relative to the enhancing pituitary. There is associated mass effect and leftward deviation of the [place] pituitary gland as well as slight leftward deviation and cephalic displacement of the p ituitary infundibulum. No direct mass effect upon the optic chiasm. IMPRESSION: Sellar mass with associated mass effect, leftward deviation of the pituitary gland and infundibulum. Mass abuts but does not significantly encase the adjacent right carotid flow void. Primary considera tion would include a pituitary macroadenoma, or given the clinical history of the possibility of met astatic lesion is not entirely excluded, although is considered less likely. Recommend neurosurgical consultation for further evaluation. POS: Cecelia
== END 2019-03-03 10:21 | disposition home or self-care (01) ==
LOC: MRI 10:20
PROVIDERS: ATTEND Internal Medicine Hematology & Oncology
DX: C50.112 Malignant neoplasm of central portion of left female breast (principal); F33.1 Major depressive disorder, recurrent, moderate; E23.7 Disorder of pituitary gland, unspecified
CPT/HCPCS: 70553; J1642

== ENCOUNTER 2019-03-26 08:44 | Inpatient (IN) | payer MEDICARE, MEDICAID ==
[2019-03-26 10:19] LABS: #Eosinphils 0.1 thou/uL (0.0-0.7); #Monocytes 0.5 thou/uL (0.11-0.59); #Neutrophils 2.9 thou/uL (1.40-6.50); %Basophils 0.5 % (0.0-1.0); %Eosinophils 1.5 % (0.0-10.0); %Lymphocytes 35.8 % (21.0-51.0); %Monocytes 9.6 % (0.0-10.0); %Neutrophils 52.5 % (42.0-75.0); Hemoglobin 12.9 g/dL (12.0-16.0); Mean Corpuscular HGB CONC 32.2 g/dL (32.0-36.0); Mean Corpuscular Hemoglobin 32.4 pg (27.0-31.0); Mean Platelet Volume 7.2 fL (7.4-10.4); Platelet Count 309 thou/uL (130-400); RBC Distribution Width 16.5 % (11.5-14.5); Red Blood Cell (RBC) Count 3.97 mill/uL (4.20-5.40); White Blood Cell (WBC) Count 5.5 thou/uL (4.8-10.8)
[2019-03-26] MEDS ORDERED: Bupivacaine/Epinephrine 0.25% 30 ML VIAL ONE (10:31)
[2019-03-26 10:41] LABS: Anion Gap 15 mmol/L (10-20); BUN (Urea Nitrogen) 16 mg/dL (9.8-20.1); Calc. Creatinine Clearance 60 mL/min (70-130); Carbon Dioxide 25 mmol/L (23-31); Chloride 103 mmol/L (98-107); Estimated GFR-MDRD Greater than 90; Glucose 101 mg/dL (83-110); Potassium 4.7 mmol/L (3.5-5.1); Sodium 138 mmol/L (136-145)
[2019-03-26] MEDS ORDERED: Ondansetron PF 4 MG/2 ML Vial ONE (10:52)
[2019-03-26] MEDS ORDERED: Rocuronium Bromide 10 MG/ML (10ML VIAL) ONE (10:52)
[2019-03-26] MEDS ORDERED: PROPOFOL 200 MG/20 ML VIAL ONE (10:52)
[2019-03-26] MEDS ORDERED: Glycopyrrolate 0.2 MG/ML 5 ML SYRINGE ONE (10:52)
[2019-03-26] MEDS ORDERED: ePHEDrine 50 MG/ML VIAL ONE (10:52)
[2019-03-26] MEDS ORDERED: Lidocaine 1% PF 5 ML VIAL ONE (10:52)
[2019-03-26] MEDS ORDERED: Fentanyl 250 MCG/5 ML VIAL ONE (11:04)
[2019-03-26] MEDS ORDERED: Ibuprofen 200 MG TAB PO PRN (17:41)
[2019-03-26] MEDS ORDERED: HYDROcodone/Acetaminophen 5/325 mg Tablet PO PRN (17:41)
[2019-03-26] MEDS ORDERED: Ondansetron PF 4 MG/2 ML Vial SLOW IVP PRN (17:42)
[2019-03-26] MEDS ORDERED: Promethazine 25 MG TAB PO PRN (17:42)
[2019-03-26] MEDS ORDERED: Ondansetron ODT 4 MG TAB PO PRN (17:42)
[2019-03-26] MEDS ORDERED: Morphine 4 MG/ML VIAL SLOW IVP PRN ×2 (17:43→19:19)
[2019-03-26] MEDS: Sodium Chloride 0.9% 1,000 ML IV SCH (17:55)
[2019-03-26 19:12] VITALS: BMI 21.2
[2019-03-26] MEDS: HYDROcodone/Acetaminophen 5/325 mg Tablet PO PRN (20:37)
--- NOTE | 2019-03-26 20:54 | PDOC.OP ---
Operative Note - Operative Note Operative Note: PROCEDURE: Left modified radical mastectomy SURGEON: Nguyễn Li M.D. 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 She had extensive knotted axillary lymph nodes as well. A right Mediport was placed and she underwent neoadjuvant chemotherapy with impressive response. The skin has completely healed and the mass in the right breast has shrunk down and is now mobile and there is no palpable axillary lymphadenopathy. No definite evidence of distant disease. Recommendation was made to proceed with left modified radical mastectomy. PROCEDURE IN DETAIL: After informed consent was obtained the patient was taken to the operating room she was placed in supine position and general anesthesia was administered. She was prepped and draped in standard sterile fashion and an elliptical skin incision marked excising as much of the previously involved skin as feasible. Subcutaneous flaps were raised superiorly to the level of the clavicle, medially to the sternum, inferiorly to the rectus sheath and the breast was dissected off the underlying pectoralis muscle to the edge of the pectoralis. En bloc dissection was then carried out to remove the axillary contents. The subcutaneous tissues lateral to the pectoralis muscle were divided and the true axilla entered. The axillary artery was palpated and the axillary vein identified and dissected free just inferior to this. The axillary tissues were swept off of the chest wall inferior to the pectoralis and the long thoracic nerve identified. This was gently stimulated and the serratus anterior muscle was seen to contract. Dissection was then carried out along the axillary vein identifying the thoracodorsal vein. The thoracodorsal nerve was not found in the usual location, just deep to this vein, but on dissection medially was able to be identified. This was coursing more medially than usual but did eventually traverse laterally, and joined the thoracodorsal vein and inserted into the latissimus dorsi muscle. This nerve was also gently stimulated and confirmed to cause contraction of the latissimus dorsi. The node bearing fatty tissues were swept down out of the axilla between the thoracodorsal and long thoracic nerves, carefully preserving both structures. Due to the patient's extremely thin body habitus, there was very little tissue in this area, but no abnormal lymph nodes were palpable. The breast and axillary contents were then marked with a long lateral suture and passed from the field for permanent pathology. The wound was irrigated and hemostasis obtained using Bovie electrocautery. 2 JODIE drains were placed, the lateral to the axillary area and the medial to the breast flap. The deep dermal tissues were then reapproximated with interrupted [id number] 3-0 Vicryl sutures, and the skin was closed with skin marcio. The JPs were secured to the skin with 3-0 nylon sutures. Xeroform and gauze dressings were placed and secured with Tegaderm. Fluffs dressings were then placed and the patient's chest was wrapped with Nick wrap to compress the operative site. The patient tolerated the procedure well. Estimated blood loss was 100 mL's. There were no complications. Specimen is left breast and axillary contents.
[2019-03-27] MEDS: HYDROcodone/Acetaminophen 5/325 mg Tablet PO PRN ×3 (03:21→21:04)
[2019-03-27] MEDS: Sodium Chloride 0.9% 1,000 ML IV SCH ×2 (09:26→21:10)
--- NOTE | 2019-03-27 20:26 | PRG ---
DATE OF SERVICE: 03/27/2019 SUBJECTIVE: The patient remains on the surgical floor. She is status post left modified radical mastectomy. The patient had no issues overnight this morning. She states her pain is controlled. She is tolerating a diet. She has been out of bed once this morning. OBJECTIVE: VITAL SIGNS: Temperature is 98.0, heart rate 80, blood pressure 104/68, respirations 12, and oxygen saturation 99% on room air. GENERAL: The patient is resting comfortably in bed. She is awake, alert, and conversant. HEENT: Unremarkable. LUNGS: Clear to auscultation with respirations moderate restricted by her chest dressing. HEART: Regular rate and rhythm. ABDOMEN: Soft, flat, and nontender with active bowel sounds. EXTREMITIES: Neurovascularly intact x4. LABORATORY DATA: There are no labs or radiographs reviewed this morning. ASSESSMENT: Postop day #1 from left modified radical mastectomy. Plan would be to continue supportive care, pain control, and diet. Encourage ambulation and discuss discharge options and placement. Job ID: [id number]
[2019-03-28 06:40] LABS: #Lymphocytes 1.6 thou/uL (1.20-3.40); #Monocytes 0.6 thou/uL (0.11-0.59); #Neutrophils 2.8 thou/uL (1.40-6.50); %Eosinophils 0.8 % (0.0-10.0); %Lymphocytes 32.2 % (21.0-51.0); %Monocytes 11.7 % (0.0-10.0); %Neutrophils 55.3 % (42.0-75.0); Mean Corpuscular HGB CONC 31.9 g/dL (32.0-36.0); Mean Corpuscular Hemoglobin 32.2 pg (27.0-31.0); Mean Platelet Volume 7.3 fL (7.4-10.4); Platelet Count 226 thou/uL (130-400); RBC Distribution Width 16.2 % (11.5-14.5); Red Blood Cell (RBC) Count 3.11 mill/uL (4.20-5.40)
[2019-03-28] MEDS: HYDROcodone/Acetaminophen 5/325 mg Tablet PO PRN ×4 (06:51→21:12)
[2019-03-28 06:57] LABS: Anion Gap 8 mmol/L (10-20); BUN (Urea Nitrogen) 16 mg/dL (9.8-20.1); Calc. Creatinine Clearance 70 mL/min (70-130); Calcium 8.5 mg/dL (7.8-10.44); Carbon Dioxide 27 mmol/L (23-31); Chloride 103 mmol/L (98-107); Estimated GFR-MDRD Greater than 90; Glucose 94 mg/dL (83-110); Magnesium 1.7 mg/dL (1.6-2.6); Phosphorus 3.7 mg/dL (2.3-4.7); Sodium 134 mmol/L (136-145)
[2019-03-28] MEDS: Sodium Chloride 0.9% 1,000 ML IV SCH (08:39)
--- NOTE | 2019-03-28 18:42 | PRG ---
DATE OF SERVICE: 03/28/2019 SUBJECTIVE: The patient remains on the surgical floor. She is postop day #2, status post a left modified radical mastectomy. She had no issues overnight. This morning, she states her pain is controlled. She is tolerating a diet and she has been out of bed working with therapy. She did have a concern about some left upper extremity swelling. It was explained the lymphedema is likely the cause of this. There was no distal swelling. She was neurovascularly intact. She had no numbness or tingling. We are sure that we would keep an eye on this and Dr. Li would also look at it when she comes back. OBJECTIVE: VITAL SIGNS: Temperature 98.3, heart rate 79, blood pressure 122/78, respirations 16, oxygen saturation 99% on room air. GENERAL: The patient is resting comfortably, sitting at the side of the bed, having her breakfast. She is awake, alert, and oriented. LUNGS: Clear to auscultation with good inspiratory and expiratory effort. HEART: Regular rate and rhythm. EXTREMITIES: Neurovascularly intact. The left upper extremity does show some slight swelling compared to the right, but again is neurovascularly intact distally with capillary refill less than 3 seconds. LABORATORY FINDINGS: White blood cell count 5.0, hemoglobin 10.0, hematocrit 31.3, platelets 226. Sodium 134, potassium 4.0, chloride 103, CO2 of 27, BUN 16, creatinine 0.63, glucose 94, magnesium 1.7, phosphorus 3.7. There are no radiographs reviewed this morning. ASSESSMENT: Status post left radical mastectomy. Plan will be to continue supportive care and discuss placement and discharge options tomorrow with her primary surgeon. The patient was evaluated this morning with Dr. Posadas. Job ID: [id number]
[2019-03-29] MEDS: HYDROcodone/Acetaminophen 5/325 mg Tablet PO PRN ×4 (02:47→17:16)
[2019-03-29] MEDS: Sodium Chloride 0.9% 1,000 ML IV SCH ×2 (03:53→17:44)
[2019-03-29 15:42] VITALS: BP 125/79; TEMP 98.5
== END 2019-03-29 17:45 | disposition home or self-care (01) | DRG 583 ==
LOC: SDC 08:44 → SJJU 15:37
PROVIDERS: ADMIT Surgery; ATTEND Surgery
PROC: 0HTU0ZZ Resection of Left Breast, Open Approach (ICD-10-PCS; principal; 2019-03-26)
DX: C50.912 Malignant neoplasm of unspecified site of left female breast (principal); I10 Essential (primary) hypertension; I89.0 Lymphedema, not elsewhere classified; F17.200 Nicotine dependence, unspecified, uncomplicated; M19.91 Primary osteoarthritis, unspecified site; Z98.890 Other specified postprocedural states
CPT/HCPCS: 36415; 80048; 83735; 84100; 85025; 88309; 93005; 93010; 99214; G0463; J0690; J2270; J3010

== ENCOUNTER 2019-06-15 11:45 | Outpatient (CLI) | payer MEDICARE, MEDICAID ==
--- NOTE | 2019-06-15 12:17 | MMO ---
Right Breast MAMMO Unilat Diag DDI RT. CLINICAL HISTORY: Patient is 73 years old and is seen for diagnostic exam. The patient has no family history of breast cancer. The patient has a history of Ultrasound Guided Core Biopsy procedure revealed invasive ductal left breast carcinoma. VIEWS: The views performed were: right craniocaudal and right mediolateral oblique. FILMS COMPARED: The present examination has been compared to a prior imaging study performed at [facility] on 08/25/2018. This study has been interpreted with the assistance of computer-aided detection. MAMMOGRAM FINDINGS: The breast is heterogeneously dense, which could obscure a lesion on mammography. Patient is post ultrasound guided biopsy at Dr. Li's office. No pre biopsy images. Biopsy clip upper outer retroareolar region. Increased surrounding density may be on basis of hematoma. Evidence of skin thickening. IMPRESSION: FINDING IN THE RIGHT BREAST IS SUSPICIOUS BASED ON OUTSIDE ULTRASOUND. PATHOLOGY PENDING. 3BTHE RESULTS OF THIS EXAM WERE SENT TO THE PATIENT.0B ACR BI-RADS Category 4 - Suspicious abnormality - biopsy should be considered MAMMOGRAPHY NOTE: 1. A negative mammogram report should not delay a biopsy if a dominant of clinically suspicious mass is present. 2. Approximately 10% to 15% of breast cancers are not detected by mammography. 3. Adenosis and dense breasts may obscure an underlying neoplasm. Reported by: TRIXIE CHOE MD Electonically Signed: [id number]
== END 2019-06-15 11:46 | disposition home or self-care (01) ==
LOC: BICMAMMO 11:45
PROVIDERS: ATTEND Surgery
DX: N63.10 Unspecified lump in the right breast, unspecified quadrant (principal)

== ENCOUNTER 2019-06-25 09:17 | Outpatient (CLI) | payer MEDICARE, MEDICAID ==
--- NOTE | 2019-06-25 11:48 | PET ---
PET SCAN WITH CT ATTENUATION CORRECTION: COMPARISON: 02/16/2019 HISTORY: Previous Left breast cancer. Stage III B inflammatory; Currently, patient has had a diagnosis of righ t breast cancer after biopsy. TECHNIQUE: PET scan with CT attenuation correction was performed from the base of brain to the proximal thighs f ollowing the intravenous administration of 10.8 MCI of [id number]. FINDINGS: Head and neck: No abnormal FDG localization in the neck. There is persistent hypermetabolic activity in the sella with a maximum SUV of 7.0. Sellar mass has been better characterized on a brain MRI 03/03/2019. Chest: Previously noted FDG avidity in the lung parenchyma is not appreciated. CT used for attenuatio n correction demonstrate residual linear opacities likely represent areas of scar or atelectasis. There is increased FDG avidity involving the right breast. CT used for attenuation correction demonst rates edematous changes and thickening. Maximum SUV of the right breast is 3.4. CT used for attenuation correction demonstrates postsurgical changes in the left breast and axilla Abdomen and pelvic: No abnormal FDG localization. Osseous structures: No abnormal FDG localization. IMPRESSION: 1. Interval resolution of FDG avidity involving the left or right lung parenchyma suggesting resoluti on of infection/inflammation. 2. Stable FDG avidity in the sella corresponding to known sellar mass. 3. Interval development of FDG avidity in the right breast, compatible with known right breast cancer . Transcribed Date/Time: 06/25/2019 12:02 PM
== END 2019-06-25 09:18 | disposition home or self-care (01) ==
LOC: PET 09:17
PROVIDERS: ATTEND Internal Medicine Hematology & Oncology
DX: C50.912 Malignant neoplasm of unspecified site of left female breast (principal); N63.10 Unspecified lump in the right breast, unspecified quadrant
CPT/HCPCS: 78815; A9552

== ENCOUNTER 2019-06-30 07:23 | Inpatient (IN) | payer MEDICARE, MEDICAID ==
--- NOTE | 2019-06-30 10:19 | NM ---
Exam: Nuclear medicine lymphoscintigraphy: HISTORY: Malignant neoplasm of right breast Patient was injected with 0.412 mCi technetium 99m filtered sulphur colloid subcutaneously in 4 separ ate injections at 12:00, 3:00, 6:00, 9:00 around the areola. Immediate imaging demonstrates 3 separate foci of increased activity in the lateral right axilla evid ence for lymph nodes. IMPRESSION: 3 separate foci of abnormal increased activity in the lateral right axilla.
[2019-06-30 10:43] LABS: %Monocytes 13.3 % (0.0-10.0); Hemoglobin 13.8 g/dL (12.0-16.0)
[2019-06-30] MEDS ORDERED: Fentanyl 100 MCG/2 ML VIAL ONE ×4 (10:45→16:37)
[2019-06-30 10:55] LABS: #Lymphocytes 0.7 thou/uL (1.20-3.40); #Monocytes 0.6 thou/uL (0.11-0.59); #Neutrophils 3.3 thou/uL (1.40-6.50); %Eosinophils 0.7 % (0.0-10.0); %Lymphocytes 14.4 % (21.0-51.0); %Neutrophils 71.6 % (42.0-75.0); Mean Corpuscular HGB CONC 34.3 g/dL (32.0-36.0); Mean Corpuscular Hemoglobin 33.4 pg (27.0-31.0); Mean Corpuscular Volume 97.1 fL (78.0-98.0); Mean Platelet Volume 7.4 fL (7.4-10.4); Platelet Count 201 thou/uL (130-400); RBC Distribution Width 12.9 % (11.5-14.5); Red Blood Cell (RBC) Count 4.13 mill/uL (4.20-5.40); White Blood Cell (WBC) Count 4.6 thou/uL (4.8-10.8)
[2019-06-30 10:56] LABS: Anion Gap 11 mmol/L (10-20); BUN (Urea Nitrogen) 17 mg/dL (9.8-20.1); Calc. Creatinine Clearance 62 mL/min (70-130); Calcium 9.3 mg/dL (7.8-10.44); Carbon Dioxide 26 mmol/L (23-31); Chloride 102 mmol/L (98-107); Estimated GFR-MDRD Greater than 90; Glucose 91 mg/dL (83-110); Potassium 3.9 mmol/L (3.5-5.1); Sodium 135 mmol/L (136-145)
[2019-06-30] MEDS ORDERED: Isosulfan Blue 50 MG/5 ML VIAL ONE (11:18)
[2019-06-30] MEDS ORDERED: Bupivacaine/Epinephrine 0.25% 30 ML VIAL ONE (11:18)
[2019-06-30] MEDS ORDERED: ePHEDrine/0.9% NaCl/PF SYRINGE 50 mg/10 ml ONE (12:36)
[2019-06-30] MEDS ORDERED: Ketorolac Tromethamine 30 MG/ML VIAL IVP PRN (14:29)
[2019-06-30] MEDS ORDERED: Meperidine HCl/PF 25 MG/ML VIAL SLOW IVP PRN (14:29)
[2019-06-30] MEDS ORDERED: Ondansetron HCl/PF 4 MG/2 ML Vial IVP PRN (14:29)
[2019-06-30] MEDS ORDERED: Promethazine HCl 25 MG/ML VIAL IM PRN (14:29)
[2019-06-30] MEDS ORDERED: Promethazine HCl 25 MG/ML VIAL SLOW IVP PRN (14:29)
[2019-06-30] MEDS ORDERED: HYDROmorphone 2 MG/ML VIAL SLOW IVP PRN (14:29)
[2019-06-30] MEDS ORDERED: HYDROcodone/Acetaminophen 5/325 mg Tablet PO PRN (16:37)
[2019-06-30] MEDS ORDERED: Ondansetron PF 4 MG/2 ML Vial SLOW IVP PRN (16:39)
[2019-06-30] MEDS ORDERED: traMADol HCl 50 MG TAB PO PRN ×2 (16:39)
[2019-07-01] MEDS: Lactated Ringer's 1,000 ML IV SCH (06:24)
[2019-07-01 06:53] LABS: #Lymphocytes 0.8 thou/uL (1.20-3.40); %Basophils 0.2 % (0.0-1.0); %Eosinophils 0.1 % (0.0-10.0); %Lymphocytes 8.9 % (21.0-51.0); %Monocytes 11.8 % (0.0-10.0); Hemoglobin 12.7 g/dL (12.0-16.0); Mean Corpuscular HGB CONC 33.2 g/dL (32.0-36.0); Mean Corpuscular Hemoglobin 33.2 pg (27.0-31.0); Mean Corpuscular Volume 99.8 fL (78.0-98.0); Mean Platelet Volume 7.3 fL (7.4-10.4); Platelet Count 194 thou/uL (130-400); RBC Distribution Width 12.9 % (11.5-14.5); Red Blood Cell (RBC) Count 3.82 mill/uL (4.20-5.40); White Blood Cell (WBC) Count 8.8 thou/uL (4.8-10.8)
[2019-07-01 07:18] LABS: Anion Gap 12 mmol/L (10-20); BUN (Urea Nitrogen) 17 mg/dL (9.8-20.1); Calc. Creatinine Clearance 0 mL/min (70-130); Calcium 8.8 mg/dL (7.8-10.44); Carbon Dioxide 25 mmol/L (23-31); Chloride 102 mmol/L (98-107); Estimated GFR-MDRD Greater than 90; Glucose 98 mg/dL (83-110); Sodium 135 mmol/L (136-145)
[2019-07-01] MEDS: HYDROcodone/Acetaminophen 5/325 mg Tablet PO PRN ×2 (09:29→14:45)
--- NOTE | 2019-07-01 12:21 | PDOC.OP ---
Operative Note - Operative Note Operative Note: PROCEDURE: Right mastectomy and sentinel lymph node biopsy SURGEON: Nguyễn Li M.D. DATE: 06/30/2019 PREOPERATIVE DIAGNOSIS: Right inflammatory breast cancer POSTOPERATIVE DIAGNOSIS: Right inflammatory breast cancer HISTORY: Patient with history of left inflammatory breast cancer treated recently. She developed changes consistent with inflammatory breast cancer of the right breast. She tolerated chemotherapy very poorly with her left breast cancer so the decision was made to proceed with urgent surgery with plans to perform radiation therapy postoperatively for local control, and chemotherapy as tolerated. PROCEDURE IN DETAIL: After informed consent was obtained the patient was taken to the operating room and placed in the supine position. General anesthesia was administered and the breast was prepped with alcohol and lymphazurin injected subdermally behind the nipple. The breast was massaged for 5 minutes, and then the patient was positioned, prepped and draped. Local anesthesia was infused to the lower edge of the hairbearing skin of the axilla. The skin was incised and dissection carried down to the area of highest activity by neoprobe. 1 lymph node with increased activity was identified and dissected free. This was not blue in color. On closer examination it was felt that it might represent 2 adjacent lymph nodes, but they were both small and soft. Axilla was examined and palpated and no other palpable abnormal nodes nor areas of increased activity were found. There were some soft small subcentimeter lymph nodes but none that were grossly abnormal or had increased counts above background. The wound was irrigated and hemostasis verified. Additional local anesthesia was infused for postoperative pain control and the subcutaneous tissues were reapproximated with 3-0 Monocryl suture and the skin closed with 4-0 Monocryl suture. Attention was then turned to the mastectomy. A transverse elliptical incision was made including all of the grossly abnormal skin. Dissection was carried out inferiorly to the edge of the rectus sheath, superiorly to the level of the clavicle except the far lateral clavicle where the Mediport was in place and medially to the edge of the sternum. The breast was then dissected free to the edge of the pectoralis major including the pectoralis fascia, and laterally to the end of the breast mound taking care to stay superficial to the true axilla. The breast was marked for orientation with a long lateral and short superior suture. Hemostasis was obtained using Bovie electrocautery. A JODIE drain was placed laterally and secured to the skin with a skin suture. The subcutaneous and deep dermal tissues were reapproximated with interrupted 3-0 Vicryl suture and the skin was closed with skin marcio. Xeroform gauze and Tegaderm dressings were placed at the mastectomy site, Dermabond to the axillary incision and a gauze and Tegaderm dressing to the JODIE site. Fluffs pressure dressings and an Nick wrap were then placed. The patient was extubated and taken to the recovery room in good condition. Estimated blood loss was minimal. There were no complications. Specimens are sentinel lymph nodes and right breast
[2019-07-01 12:27] VITALS: BP 116/57; TEMP 98.3
--- NOTE | 2019-07-01 13:06 | DIS ---
DATE OF ADMISSION: 06/30/2019 DATE OF DISCHARGE: 07/01/2019 FINAL DIAGNOSIS: Inflammatory breast cancer. PROCEDURES PERFORMED: Right sentinel lymph node biopsy and mastectomy on 06/30/2019. HISTORY AND HOSPITAL COURSE: Ms. Sinha is a 73-year-old woman, who recently underwent chemotherapy, left modified radical mastectomy, and postoperative radiation therapy for inflammatory breast cancer. She was doing well from this, but then developed changes consistent with inflammatory breast cancer of the right breast. This was biopsy confirmed and PET scan did not show any distant disease, so she underwent sentinel lymph node biopsy and right mastectomy as her first course of treatment since she had not been able to tolerate chemotherapy well in the past. Postoperatively, she was observed overnight. Her labs and vitals were stable and her pain was manageable. Her incisions look good, and she has no evidence of hematoma or seroma formation. JODIE output is serosanguineous, and the patient and her family are familiar with wound and drain care instructions. She is being discharged home with instructions to follow up in the [facility] in 10 to 14 days for staple removal. She is to call when the output from her drain is less than 30 mL today for 3 days in a row at which point her drain will be removed as well. Job ID: [id number]
== END 2019-07-01 15:00 | disposition home or self-care (01) | DRG 581 ==
LOC: SDC 07:23 → 3SE 17:17
PROVIDERS: ADMIT Surgery; ATTEND Surgery
PROC: 0HBT0ZZ Excision of Right Breast, Open Approach (ICD-10-PCS; principal; 2019-06-30)
PROC: 07B50ZX Excision of Right Axillary Lymphatic, Open Approach, Diagnostic (ICD-10-PCS; 2019-06-30)
PROC: C71N1ZZ Planar Nuclear Medicine Imaging of Upper Extremity Lymphatics using Technetium 99m (Tc-99m) (ICD-10-PCS; 2019-06-30)
DX: C50.911 Malignant neoplasm of unspecified site of right female breast (principal); I10 Essential (primary) hypertension; M10.9 Gout, unspecified; M19.90 Unspecified osteoarthritis, unspecified site; C50.912 Malignant neoplasm of unspecified site of left female breast; Z90.12 Acquired absence of left breast and nipple; Z79.899 Other long term (current) drug therapy
CPT/HCPCS: 36415; 78195; 80048; 85025; 88307; 88309; 88342; A9541; J0690; J1642; J3010; Q9968

== ENCOUNTER 2019-12-08 08:40 | Outpatient (CLI) | payer MEDICARE, MEDICAID ==
--- NOTE | 2019-12-08 13:43 | PET ---
Radionucleotide PET scan with CT attenuation correction HISTORY: Malignant neoplasm of the central portion of the left breast. Right breast cancer. Malignant pleural effusion. Restaging COMPARISON: 06/25/2019 and 02/16/2019. FINDINGS: Physiologic uptake of radiotracer throughout the enteric system and along each urinary trac t. Intense uptake in the region of the sella at the brain base shows maximum SUV of 20.0 (previously 12.2). Small amount of left pleural fluid is present with scattered areas of soft tissue thickening associa andrés with the level of the pleura throughout the left hemithorax. The areas of greatest radiotracer uptake are along the lateral and anterolateral inner chest wall, maximum SUV 4.5 and 4.3. Along the a nterior medial left chest wall, a focal area of increased radiotracer uptake, maximum SUV 3.1, is favored to be associated with an additional pleural lesion, rather than an internal mammary lymph nod e. At the lateral aspect of the right fifth intercostal space, a focal area of uptake, maximum SUV 2.4, is associated with the intercostal musculature. No mass is evident. It remains some hypermetabolic. Right breast is now surgically absent. The nondiagnostic CT attenuation correction images again show postoperative changes in the left axilla. There is prominent calcification throughout the arterial structures. Large amount of stool within the colon and rectum. IMPRESSION: Reappearance of the malignant disease of the left pleura. Uptake associated with the lesion of the sella at the brain base has increased, maximum SUV 20. Atherosclerosis. Constipation.
== END 2019-12-08 08:41 | disposition home or self-care (01) ==
LOC: PET 08:40
PROVIDERS: ATTEND Internal Medicine Hematology & Oncology
DX: C50.112 Malignant neoplasm of central portion of left female breast (principal); J91.0 Malignant pleural effusion
CPT/HCPCS: 78815; A9552

== ENCOUNTER 2020-02-03 10:44 | Inpatient (IN) | payer MEDICARE, MEDICAID, OTHER ==
[~2020-02-03 10:44] MED LIST changes: -Dexamethasone 4 mg/ml Vial SLOW IVP SCH; -FAMOTIDINE IVPB SCH; +Iopamidol-370 76% 500 ML 1 ML ONE; -PACLITAXEL IVPB SCH; -SODIUM CHLORIDE 0.9% IVPB SCH; -diphenhydrAMINE 50 MG/ML VIAL IVP PRN
[2020-02-03 12:07] LABS: Bilirubin Moderate (Negative); Blood, Urine Negative (Negative); Glucose, Urine (Dipstick) 100 mg/dL (Negative); Leukocyte Negative (Negative); Nitrite Positive (Negative); Protein, Urine (Dipstick) 30 mg/dL (Neg-Trace)
[2020-02-03 12:08] LABS: ALT (SGPT) 29 U/L (8-55); AST (SGOT) 46 U/L (5-34); Albumin 2.7 g/dL (3.4-4.8); Alkaline Phosphatase 98 U/L (40-110); Anion Gap 14 mmol/L (10-20); BUN (Urea Nitrogen) 34 mg/dL (9.8-20.1); Bilirubin, Total 1.1 mg/dL (0.2-1.2); Calc. Creatinine Clearance 0 mL/min (70-130); Calcium 9.2 mg/dL (7.8-10.44); Carbon Dioxide 26 mmol/L (23-31); Chloride 96 mmol/L (98-107); Estimated GFR-MDRD 36; Globulin 3.9 g/dL (2.4-3.5); Glucose 181 mg/dL (83-110); Hemoglobin 9.3 g/dL (12.0-16.0); Mean Corpuscular HGB CONC 31.1 g/dL (32.0-36.0); Mean Corpuscular Hemoglobin 33.3 pg (27.0-31.0); Mean Platelet Volume 8.2 fL (7.4-10.4); Platelet Count 298 thou/uL (130-400); Protein, Total 6.6 g/dL (6.0-8.3); RBC Distribution Width 15.1 % (11.5-14.5); Red Blood Cell (RBC) Count 2.79 mill/uL (4.20-5.40); Reflex for Review?? YES; Sodium 132 mmol/L (136-145); White Blood Cell (WBC) Count 62.9 thou/uL (4.8-10.8)
[2020-02-03 12:12] LABS: Clarity Hazy (Clear)
[2020-02-03 12:16] LABS: Band 43 % (5-11); MDiff Complete? YES; Macrocytosis SLIGHT = 6-15 cells (100X) (0-5/hpf); Metamyelocyte 3 % (0-0); Monocytes 2 % (0-10); Myelocyte 5 % (0-0); Neutrophil 47 % (42-75); Platelet Morphology Comment Appears Adequate; Polychromasia MODERATE = 3-4 cells (100X) (0-2/hpf); Toxic Granulation SLIGHT; Vacuoles MODERATE
[2020-02-03] MEDS ORDERED: cefTRIAXone\\ROCEPHIN 2 GM VIAL ONE (13:03)
[2020-02-03 13:38] LABS: CK (CPK) 206 U/L (29-168); Lipase Less than 4 U/L (8-78)
--- NOTE | 2020-02-03 14:00 | RAD ---
PORTABLE CHEST 1 VIEW: DATE: 02/03/2020. TIME: 1:32 PM. HISTORY: Dyspnea. Breast cancer on chemotherapy. Dry cough for the last few days. COMPARISON: 08/28/2018. FINDINGS/IMPRESSION: The heart size is prominent. The aorta is tortuous. There are airspace opacities in the lower lung traylor, right greater than left. No pneumothoraces or pleural effusions are seen. There are surgica l clips in the left axilla. Findings are suspicious for pneumonia. A right-sided Port-A-Cath is pre sent. POS: [facility]
[2020-02-03] MEDS ORDERED: Vancomycin 1 GM/200 ML BAG ONE (14:07)
[2020-02-03] MEDS ORDERED: Albumin 25% 25 GM/100 ML BOT IVPB SCH (14:30)
--- NOTE | 2020-02-03 15:42 | CT ---
CT ANGIOGRAM THORAX WITH CONTRAST: (CTA pulmonary angiogram) DATE: 02/03/2020 HISTORY: 74-year-old female with breast cancer presents with cough TECHNIQUE: IV injection of iodinated contrast. Scan acquisition timing attempted to coincide with iodinated contrast bolus reaching maximal density in pulmonary arteries. 3-D MIP reconstructions. COMPARISON: Attenuation correction CT for PET scan of 12/08/2019 FINDINGS: There is a new multiloculated moderate size right pleural effusion with components at the right apex, invagination into posterior mediastinum, and largest component in the posterior dependent portion of the right hemithoracic cavity. This is associated with a new moderately large consolidation with a ir bronchograms in the right lower lobe, broadly abutting the right pleural effusion. There is a smaller platelike region of consolidation in the right middle lobe broadly abutting the mi nor fissure. Similar but smaller such infiltrate at posterior segment of right upper lobe. The previously demonstrated small left pleural effusion has decreased in size. There is a new moderat e sized consolidation in the posterior aspect of the left lower lobe, broadly abutting this small left pleural effusion. Again noted is the platelike region of pulmonary opacity broadly abutting the left anterolateral pleu ral surface at the anterior segment of left upper lobe, which was present previously, with no major interval change. There is moderate to severe centrilobular emphysema throughout the aerated portions of the lungs. No pneumothorax. Trachea and major bronchi are patent and clear. No pulmonary thromboembolism identified. Atherosclerosis and tortuosity of thoracic aorta without dissection, aneurysm, or rupture. No pericar dial effusion IMPRESSION: 1) new moderate size multiloculated right pleural effusion: Empyema versus malignant pleural effusion . 2) new pulmonary consolidations, mostly in the bilateral lower lobes: Suspicious for pneumonia. 3) small left pleural effusion. 4) no pulmonary thromboembolism identified 5) high-grade centrilobular emphysema
[2020-02-03] MEDS ORDERED: Senokot S 8.6-50 MG TAB PO PRN (15:54)
[2020-02-03 17:22] LABS: SARS-CoV-2 MS2 Positive; SARS-CoV-2 N Gene Negative; SARS-CoV-2 S Gene Negative; SARS-CoV-2 orf1ab Negative
[2020-02-03] MEDS ORDERED: CCU Electrolyte Replacement 1 EACH IVPB ONE (17:43)
[2020-02-03] MEDS ORDERED: Norepinephrine 8 MG/0.9% NS 250 ML IVPB PRN (17:43)
[2020-02-03] MEDS ORDERED: Potassium Chloride 40 MEQ in Sodium Chloride 0.9% 250 ML 250 ML IVPB PRN (17:46)
[2020-02-03] MEDS ORDERED: Potassium Phosphate 15 MMOL in Sodium Chloride 0.9% 250 ML 250 ML IV PRN (17:46)
[2020-02-03] MEDS ORDERED: CCU ELECTROLYTE REPLACEMENT PROTOCOL FS PRN (17:46)
[2020-02-03] MEDS ORDERED: PHOS-NAK 1 PKT PACK PO PRN ×2 (17:46)
[2020-02-03] MEDS ORDERED: Potassium Chloride 20 MEQ TAB PO PRN (17:46)
[2020-02-03] MEDS ORDERED: Potassium Phosphate 12 MMOL in Sodium Chloride 0.9% 250 ML 250 ML IV PRN (17:46)
[2020-02-03] MEDS ORDERED: Potassium Phosphate 9 MMOL in Sodium Chloride 0.9% 100 ML IVPB PRN (17:46)
[2020-02-03] MEDS ORDERED: Potassium Chloride 40 MEQ in Premix Bag 1 BAG IVPB PRN (17:46)
[2020-02-03] MEDS ORDERED: Magnesium 2 GM/50 ML 2 GM in Premix Bag 1 BAG IVPB PRN (17:46)
[2020-02-03] MEDS ORDERED: Magnesium Oxide 400 MG TAB PO PRN ×2 (17:46)
--- NOTE | 2020-02-03 20:33 | RAD ---
RADIOGRAPH CHEST 1 VIEW: Date: 02/03/20 Time: 6:36 p.m. HISTORY: 74-year-old female status post central line placement. Dr. Hawkins discussed the findings regarding the left subclavian central vascular catheter by telephone w leigh Smiley at 6:54 p.m. on 02/03/20. COMPARISON: 02/03/20 at 1:32 p.m. FINDINGS: There is a new left sided central vascular catheter. It takes a subclavian course, then overlaps the aortic knob, then crosses horizontally across the upper mediastinum, then descends just medial to the pre-existing right subclavian implantable vascular access port. The distal tip of this new central v ascular catheter points slightly to the left. There is no pneumothorax. There is no interval change in the air space densities in the bilateral lower lung zones, bilateral p leural effusions, and interstitial densities in the bilateral mid lung zones. Bilateral pleural effus ions are unchanged. IMPRESSION: 1. Interval placement of left subclavian central vascular catheter. Position and location questi onable. Recommend noncontrast chest CT for verification. 2. No pneumothorax. 3. No interval change in the appearance of the lungs. Code CR JN [] POS: EBONI
--- NOTE | 2020-02-03 20:42 | CT ---
CT THORAX NONCONTRAST: 02/03/20 at 7:21 p.m. HISTORY: 74-year-old female status post central line placement with question of position of that catheter on c hest radiograph. COMPARISON: CTA of chest of 02/03/20 at 2:55 p.m. FINDINGS: There is a new central vascular catheter which travels through the left subclavian vein, left brachio cephalic vein, then descends the superior vena cava, then turns 90 degrees posteriorly into the super ior arch of the azygos vein. The distal tip is at the posterior aspect of the superior arch of azygos vein. There is no hematoma in the mediastinum. The contralateral right subclavian implantable vascul ar access port remains with distal tip at SVC/right atrial junction. No pneumothorax. No interval peter nge in the multiloculated right pleural effusion, smaller left pleural effusion, bilateral lower lobe consolidation, right greater than left, and other findings previously described. IMPRESSION: 1. Interval placement of left subclavian central venous catheter. Distal tip is in the azygos ve in. 2. No pneumothorax. 3. No other interval change. SULEIMAN Jaffe POS: EBONI
[2020-02-03] MEDS: Sodium Chloride 0.9% 1,000 ML IV SCH (20:51)
[2020-02-03] MEDS: Gabapentin 300 MG CAP PO SCH (21:17)
[2020-02-03] MEDS ORDERED: DOPamine 400 MG/D5W 250 ML 250 ML ONE (22:05)
[2020-02-03] MEDS ORDERED: DOPamine 400 MG/D5W 250 ML 250 ML IVPB SCH (22:15)
[2020-02-03] MEDS: Azithromycin 500 MG in Sodium Chloride 0.9% 250 ML 250 ML IVPB SCH (22:31)
--- NOTE | 2020-02-04 01:18 | OP ---
DATE OF PROCEDURE: 02/03/2020 PREOPERATIVE DIAGNOSES: Pneumonia, metastatic cancer, in need of IV access, COVID rule out. POSTOPERATIVE DIAGNOSES: Pneumonia, metastatic cancer, in need of IV access, COVID rule out. PROCEDURE PERFORMED: Left subclavian vein triple-lumen catheter. ANESTHESIA: 1% Xylocaine. DESCRIPTION OF PROCEDURE: With the patient at bedside, the left chest was prepared with ChloraPrep and draped in routine fashion. Local anesthetic was infiltrated into the skin and subcutaneous tissue about the operative site. Trocar catheter was introduced. Infraclavicular approach used to cannulate the left subclavian vein. J-wire was threaded. Trocar catheter was removed. Skin site was enlarged sharply. triple-lumen catheter placed over the J-wire in the subclavian vein. J-wire removed. Catheter was secured with 2 interrupted sutures of 3-0 silk. Each port aspirated blood, flushed with saline solution. Sterile dressing applied. Chest x-ray pending. Job ID: [id number]
--- NOTE | 2020-02-04 01:23 | HP ---
CHIEF COMPLAINT: Cough, shortness of breath. HISTORY OF PRESENT ILLNESS: The patient is a 74-year-old female with a history of breast cancer status post bilateral mastectomy, who presents to the hospital with complaints of shortness of breath and cough. The patient actually initially presented to her oncologist's office and then was referred here for an evaluation. The patient tells me that she has not been able to eat very much for the past week. She has been having some shortness of breath, worsening for the past couple of days and also cough. She denies any fevers or chills. Denies any nausea, vomiting, or diarrhea. Denies any sick contacts. She lives alone. Her last chemotherapy was last Friday. She does not recall getting any sort of a bone marrow stimulating shot. She also has been complaining of generalized weakness. PAST MEDICAL HISTORY: Hypertension. She has a history of initially left breast cancer status post chemotherapy. She also had arthritis, gout, hypertension, and there is a mention of also possible spot in her lung; however, this is unclear. PAST SURGICAL HISTORY: She has had bilateral mastectomy. She has had a left knee repair and she has also had a fine-needle aspiration, MediPort insertion on her right chest wall area. FAMILY HISTORY: Positive for heart disease. Denies any malignancy. REVIEW OF SYSTEMS: All negative except for the ones mentioned above in the HPI. ALLERGIES: SHE HAS NO KNOWN DRUG ALLERGIES. MEDICATIONS: Per the notes, she has been on hydrochlorothiazide 25 mg one p.o. daily, pain medication as needed, and naproxen as needed. LABORATORY RESULTS: WBC of 62.9, hemoglobin of 9.3, hematocrit of 29.9, platelets of 298, she has bands of 43. Chemistry; sodium 132, potassium 4.0, BUN of 34, creatinine 1.67, AST is 46, ALT is 29. Troponin x1 was 0.028. Her lipase was normal. Her BNP was 362.8, lactic was 6.1. Urinalysis indicated positive nitrites, however, leukocyte esterase was negative. She did have a CTA which indicated new moderate size multiloculated right pleural effusion, empyema versus malignant effusion, also new pulmonary consolidation and also high-grade centrilobular emphysema. PHYSICAL EXAMINATION: VITAL SIGNS: Her temperature is 97.3 . Her blood pressure has been 89/48 and as I mentioned, 98% on 2 L. GENERAL: She is awake, alert, oriented x3. Appears ill. She appears very cachectic, appears malnourished. CV: S1 and S2 present. No murmurs, rubs, or gallops. LUNGS: She has decreased breath sounds to bilateral lower lung area. ABDOMEN: Soft and nontender. Bowel sounds are present x2. EXTREMITIES: Dry skin. Pedal pulses are present x2. SKIN: She does have a port on her right area and also she has a line on her left. NEUROVASCULAR: No focal deficits noted. ASSESSMENT AND PLAN: The patient is a very pleasant 74-year-old female, comes into the hospital with complaints of generalized weakness, shortness of breath. 1. Septic shock, most likely from pneumonia. She had a COVID test which has actually been negative. Her CAT scan appears to be more of pneumonia picture. She states that she has not had any sick contacts and she lives alone. I will start her on cefepime, azithromycin, and also vancomycin, very broad-spectrum. She had already received fluids per sepsis protocol; however, I will put her on some normal saline at 100 mL an hour and also, we will start her on a Levophed drip as needed. 2. Pneumonia. Again, we will continue broad-spectrum antibiotics and continue to monitor. 3. Leukocytosis with bandemia. Again unclear if she got any sort of stimulating agents; however, this could be most likely secondary to possible even empyema. We will continue to monitor and follow along. 4. Acute kidney injury. Again, we will start her on some hydration and continue to monitor. 5. Deep vein thrombosis prophylaxis. I will put patient on subcu heparin. 6. Breast cancer. Again, she is currently on chemotherapy. Last chemotherapy was on Friday and per her documentations, the patient has invasive carcinoma with apocrine features. Job ID: [id number]
[2020-02-04] MEDS: Sodium Chloride 0.9% 1,000 ML IV SCH ×4 (02:37→21:58)
[2020-02-04 04:41] LABS: ALT (SGPT) 24 U/L (8-55); AST (SGOT) 37 U/L (5-34); Albumin 2.8 g/dL (3.4-4.8); Alkaline Phosphatase 100 U/L (40-110); Bilirubin, Direct 0.6 mg/dL (0.1-0.3); Bilirubin, Total 0.7 mg/dL (0.2-1.2); Protein, Total 6.3 g/dL (6.0-8.3)
[2020-02-04 05:38] LABS: Anion Gap 14 mmol/L (10-20); BUN (Urea Nitrogen) 29 mg/dL (9.8-20.1); Calc. Creatinine Clearance 54 mL/min (70-130); Calcium 8.7 mg/dL (7.8-10.44); Carbon Dioxide 24 mmol/L (23-31); Chloride 104 mmol/L (98-107); Estimated GFR-MDRD 85; Glucose 120 mg/dL (83-110); Potassium 3.5 mmol/L (3.5-5.1); Sodium 138 mmol/L (136-145)
[2020-02-04] MEDS: Citalopram 10 MG TAB PO SCH (09:17)
[2020-02-04] MEDS: Enoxaparin Sodium 40 MG/0.4 ML SYRINGE SC SCH (09:17)
[2020-02-04] MEDS: Gabapentin 300 MG CAP PO SCH ×3 (09:18→21:54)
--- NOTE | 2020-02-04 12:27 | CON ---
DATE OF CONSULTATION: 02/04/2020 REASON FOR CONSULTATION: Septic shock. HISTORY OF PRESENT ILLNESS: The patient is a 74-year-old female, who was admitted to the Hospitalist Service yesterday with complaints of cough and shortness of breath. She underwent rapid screening for COVID-19 pneumonia, was found to be negative. She is a chemotherapy patient, who was last treated about a week ago. She had an x-ray showing bilateral infiltrative changes and a complex looking right effusion. She has been started on a dopamine drip for hypotension. She is not a very good historian and really does not want to talk. PAST MEDICAL HISTORY: 1. Hypertension. 2. Breast cancer treated with chemotherapy. The patient also indicates that she got radiation. 3. Arthritis. 4. Gout. 5. Possible lung lesion. PAST SURGICAL HISTORY: 1. Bilateral mastectomy. 2. Left knee repair. 3. MediPort placement, right chest. ALLERGIES: NONE. FAMILY MEDICAL HISTORY: Remarkable for heart disease. MEDICATIONS: Prior to admission; 1. Hydrochlorothiazide. 2. Naproxen. REVIEW OF SYSTEMS: Twelve-point review of systems is otherwise negative. PHYSICAL EXAMINATION: VITAL SIGNS: Temperature 97.3, pulse 57, blood pressure 121/66, and O2 saturation 99%. She is currently on dopamine drip at 5 mcg/minute. Intake 1397 and output not measured as she is currently wearing a diaper. HEENT: Unremarkable. NECK: No adenopathy or JVD. LUNGS: Slight diminished breath sounds at both bases. CARDIOVASCULAR: S1 and S2. Regular. CHEST: She has a right Port-A-Cath in place. She has a left subclavian line in place. ABDOMEN: Soft and nontender. EXTREMITIES: No clubbing or cyanosis. She has lymphedema in her left arm. LABORATORY DATA: COVID-19 test was negative. White blood cell count 62.9, hematocrit 29.9, and platelet count 298. D-dimer 10.5. Sodium 138, potassium 3.5, chloride 104, CO2 of 24, BUN 29, creatinine 0.8, and glucose 120. Her CT pulmonary angiogram did not show any evidence of pulmonary emboli. She had a small multiloculated right effusion. I am not sure, if this is related to malignancy or not. ASSESSMENT: 1. Septic shock - presumably bacterial infection from pneumonia. 2. Question of empyematous effusion versus malignant effusion. RECOMMENDATIONS: 1. Check cortisol level. Make sure, she is not adrenally insufficient. 2. I am not sure much can be done to intervene on the effusion at this time. Based on this appearance on the CT scan, my preference would be just go ahead and treat her with antibiotics and see how she does and follow up a scan in a week or two. 3. Use norepinephrine for vasopressor instead of dopamine. 4. Check cortisol level to make sure she is not adrenally insufficient. Job ID: [id number]
[2020-02-04] MEDS: Cefepime 1 GM in Sodium Chloride 0.9% 100 ML IVPB SCH (13:31)
[2020-02-04 13:39] LABS: Vancomycin, Random 6.7 ug/mL (See Comment)
[2020-02-04] MEDS ORDERED: Vancomycin 1 GM in Premix Bag 1 BAG IVPB SCH (14:00)
--- NOTE | 2020-02-04 15:17 | PDOC.HOSPP ---
- Subjective Encounter Date: 02/04/20 Encounter Time: 10:30 Subjective: pt up in bed appears ill and feels sob when she coughs. - Objective Vital Signs & Weight: Vital Signs (12 hours) Temp Pulse Ox 02/04/20 12:00 97 F L 02/04/20 09:00 96.8 F L 02/04/20 08:00 95 02/04/20 05:00 97.3 F L 02/04/20 04:00 98 Weight Admit Weight 118 lb Weight 118 lb 2.684 oz Most Recent Monitor Data Heart Rate from ECG 62 NIBP 112/61 NIBP BP-Mean 78 Respiration from ECG 14 SpO2 100 I&O: 02/03/20 02/04/20 02/05/20 06:59 06:59 06:59 Intake Total 1389.7 37 Output Total 0 700 Balance 1389.7 -663 Result Diagrams: 02/03/20 11:39 02/04/20 04:04 Hospitalist ROS - Review of Systems Respiratory: reports: shortness of breath Cardiovascular: denies: chest pain, palpitations, orthopnea, paroxysmal noc. dyspnea, edema, light headedness, other Gastrointestinal: denies: nausea, vomiting, abdominal pain, diarrhea, constipation, melena, hematochezia, other Genitourinary: denies: dysuria, frequency, incontinence, hematuria, retention, other - Medication Medications: Active Medications Generic Name Dose Route Start Last Admin Trade Name Freq PRN Reason Stop Dose Admin Citalopram Hydrobromide 10 mg 02/04/20 09:00 02/04/20 09:17 Celexa PO 10 mg DAILY PETAR Administration Enoxaparin Sodium 40 mg 02/04/20 09:00 02/04/20 09:17 Lovenox SC 40 mg 0900 PETAR Administration Gabapentin 300 mg 02/03/20 21:00 02/04/20 14:29 Neurontin PO 300 mg TID PETAR Administration Cefepime HCl 1 gm/ Sodium 100 mls @ 200 mls/hr 02/04/20 13:00 02/04/20 13:31 Chloride IVPB 100 mls 1300 PETAR Administration Sodium Chloride 1,000 mls @ 100 mls/hr 02/03/20 16:00 02/04/20 14:33 Normal Saline 0.9% IV 1,000 mls .Q10H PETAR Administration Norepinephrine Bitartrate 250 mls @ 0 mls/hr 02/03/20 17:43 02/03/20 21:17 Levophed IVPB 250 mls PRN PRN Administration To maintain MAP > 65 Protocol Titrate Azithromycin 500 mg/ Sodium 250 mls @ 250 mls/hr 02/03/20 18:00 02/03/20 22: 31 Chloride IVPB 250 mls Q24HR PETAR Administration - Exam Neck: negative: supple, symmetric, no JVD, no thyromegaly, no lymphadenopathy, no carotid bruit, JVD Heart: negative: RRR, no murmur, no gallops, no rubs, normal peripheral pulses, irregular, diminshed peripheral pulses, murmur present, II/IV, III/IV Respiratory - other findings: decrease breath sound to bases Gastrointestinal: negative: soft, non-tender, non-distended, normal bowel sounds , no palpable masses, no hepatomegaly, no splenomegaly, no bruit, no guarding, no rigidity, tender to palpation, distended, diminished bowl sounds, voluntary guarding Hosp A/P (1) Septic shock Code(s): A41.9 - SEPSIS, UNSPECIFIED ORGANISM; R65.21 - SEVERE SEPSIS WITH SEPTIC SHOCK Status: Acute (2) Pneumonia Code(s): J18.9 - PNEUMONIA, UNSPECIFIED ORGANISM Status: Acute (3) Leukocytosis Code(s): D72.829 - ELEVATED WHITE BLOOD CELL COUNT, UNSPECIFIED Status: Acute (4) Empyema Code(s): J86.9 - PYOTHORAX WITHOUT FISTULA Status: Acute - Plan will continue abx for now. pt still on levo. Resuscitation status discussed with pt and she wants to be full code. pt's sister is her next of kin. cortisol ordered
[2020-02-04] MEDS: Azithromycin 500 MG in Sodium Chloride 0.9% 250 ML 250 ML IVPB SCH (18:05)
--- NOTE | 2020-02-04 19:08 | CON ---
DATE OF CONSULTATION: REASON FOR CONSULTATION: Left breast cancer. HISTORY OF PRESENT ILLNESS: Ms. Sinha is a 74-year-old female with bilateral triple negative breast cancer. She has undergone chemotherapy and radiation and is currently on treatment with Tecentriq and Abraxane. She presented to our clinic yesterday for cycle 2 and was noted to be significantly weaker. She had struggled with weight loss over the last several weeks, but had an 8-pound weight loss in the last month. She was feeling poorly with shortness of breath. She was spending most of the day in the recliner. She had denied any fever, chills, or urinary problems. She was in a wheelchair. A CBC was drawn and her white count was noted to be 58.8. Her usual counts are around 4. She did not receive any Neulasta support after the last treatment. Her O2 saturation was 88% on room air, and her BP was low as well, so she was sent to the emergency room for possible sepsis. She underwent a CT angio, which showed a moderate-sized multiloculated right pleural effusion. She had new pulmonary consolidations, suspicious for pneumonia. She was hypotensive and started on IV fluids and pressors and admitted to the ICU. PAST MEDICAL HISTORY: 1. Bilateral triple negative breast cancer, currently on chemoimmunotherapy. 2. Hypertension. 3. Gout. PAST SURGICAL HISTORY: 1. Bilateral mastectomy. 2. MediPort placement. 3. Knee repair. ALLERGIES: NO KNOWN DRUG ALLERGIES. HOME MEDICATIONS: 1. Fentanyl patch 50 mcg. 2. Hydrochlorothiazide. 3. Megestrol. 4. Arimo 10/325. 5. Potassium chloride 20. FAMILY HISTORY: Noncontributory. SOCIAL HISTORY: The patient lives with her daughter. REVIEW OF SYSTEMS: A 10-point review of systems is negative. PHYSICAL EXAMINATION: VITAL SIGNS: Temperature is 97.0, heart rate 66, respiratory rate 15, blood pressure is 122/61. She is 100% on 2 L. GENERAL: This is a frail, cachectic female, in no acute distress. HEENT: Normocephalic, atraumatic. Pupils are equal and reactive to light. NECK: Supple. CV: Regular rate and rhythm. LUNGS: Diminished throughout. ABDOMEN: Soft and nontender. EXTREMITIES: She has left upper extremity edema. SKIN: She has infiltration of tumor in her left chest wall and axilla. HEMATOLOGICAL: There are no petechiae or purpura. NEUROLOGICAL: Nonfocal. PERTINENT LABORATORY DATA AND X-RAYS: WBC 62.9, hemoglobin 9.3, hematocrit 29.9, platelet count 298,000, 47% neutrophils, 43% bands, 3% metamyelocytes, 5% myelocytes. Sodium 138, potassium 3.5, chloride 104, CO2 is 22, BUN is 29, creatinine 0.8, lactic acid 1.6, calcium 8.7, bilirubin 0.7, AST is 37, ALT is 24, alkaline phosphatase is 100. BNP is 362. Serum total protein 6.3, albumin 2.8. COVID was negative. Radiology per HPI. ASSESSMENT: 1. Bilateral triple negative breast cancer. 2. Septic shock with pneumonia. 3. Leukocytosis with bandemia, likely from #2. DISCUSSION: The patient has been started on empiric antibiotics, IV fluids, and pressure support. She has improved somewhat overnight. Appreciate hospitalist and critical care management. Treatment will be held until the patient has recovered from her illness. She has progressed through multiple lines of treatment and most recently in November. I will have Palliative Care see her to discuss goals of care. She remains a full code at this time. Thank you for the consult. Job ID: [id number]
[2020-02-05] MEDS: Sodium Chloride 0.9% 1,000 ML IV SCH ×4 (00:52→17:08)
[2020-02-05 04:36] LABS: Anion Gap 13 mmol/L (10-20); BUN (Urea Nitrogen) 22 mg/dL (9.8-20.1); Calc. Creatinine Clearance 67 mL/min (70-130); Calcium 8.3 mg/dL (7.8-10.44); Carbon Dioxide 23 mmol/L (23-31); Chloride 108 mmol/L (98-107); Estimated GFR-MDRD Greater than 90; Glucose 124 mg/dL (83-110); Potassium 3.6 mmol/L (3.5-5.1); Sodium 140 mmol/L (136-145)
[2020-02-05 05:04] LABS: Band 25 % (5-11); Hemoglobin 9.7 g/dL (12.0-16.0); Lymphocytes 2 % (21-51); MDiff Complete? YES; Macrocytosis SLIGHT = 6-15 cells (100X) (0-5/hpf); Mean Corpuscular HGB CONC 31.8 g/dL (32.0-36.0); Mean Corpuscular Hemoglobin 34.7 pg (27.0-31.0); Mean Platelet Volume 8.6 fL (7.4-10.4); Metamyelocyte 3 % (0-0); Monocytes 2 % (0-10); Myelocyte 13 % (0-0); Neutrophil 55 % (42-75); Platelet Count 237 thou/uL (130-400); RBC Distribution Width 15.8 % (11.5-14.5); Red Blood Cell (RBC) Count 2.78 mill/uL (4.20-5.40); White Blood Cell (WBC) Count 33.9 thou/uL (4.8-10.8)
--- NOTE | 2020-02-05 08:10 | PRG ---
DATE OF SERVICE: 02/05/2020 SUBJECTIVE: Ms. Sinha says she feels okay today. She had no acute complaints. She is not having any chest pain on the right. OBJECTIVE: VITAL SIGNS: Her temperature is 98.1, pulse 71, blood pressure 97/56, O2 saturation 100%. The 24-hour intake is 2160 and output 1300. HEENT: Unremarkable. NECK: No JVD. CHEST: Clear anteriorly bilaterally. CARDIOVASCULAR: S1 and S2, regular. ABDOMEN: Soft. EXTREMITIES: Muscle wasting present. LABORATORY DATA: Sodium 140, potassium 3.6, chloride 108, CO2 of 23, BUN 22, creatinine 0.6, glucose 124. Cortisol level was 19. White blood cell count 33.9, down from 62.9; hematocrit 30.4; platelet count 237. Her cultures are growing out pneumococcus from her blood. ASSESSMENT: 1. Pneumococcal sepsis. 2. Question of empyematous effusion versus malignant effusion. PLAN: She is better. Therefore, we will send her out to telemetry floor and continue treating with antibiotics. I have gone ahead and consolidated her down to cefepime as that should be adequate coverage for pneumococcus. We will trend her x-ray over the next 3 days. If we start to see consolidation, she will need Thoracic Surgery consult for decortication. We will follow. Job ID: [id number]
[2020-02-05] MEDS: Gabapentin 300 MG CAP PO SCH ×3 (08:36→20:16)
[2020-02-05] MEDS: Citalopram 10 MG TAB PO SCH (08:37)
[2020-02-05] MEDS: Enoxaparin Sodium 40 MG/0.4 ML SYRINGE SC SCH (08:38)
[2020-02-05] MEDS: Cefepime 1 GM in Sodium Chloride 0.9% 100 ML IVPB SCH (13:11)
--- NOTE | 2020-02-05 19:47 | PDOC.HOSPP ---
- Subjective Encounter Date: 02/05/20 Encounter Time: 19:30 Subjective: f/u for PNA/sepsis with pneumococcal spp on Cefepime. No new complaints currently. - Objective Vital Signs & Weight: Vital Signs (12 hours) Temp Pulse Resp BP Pulse Ox 02/05/20 15:49 98.2 F 92 18 139/69 98 02/05/20 12:00 90 L 02/05/20 11:36 97.3 F L 87 20 119/57 L 90 L 02/05/20 08:00 98.4 F 96 Weight Admit Weight 118 lb Weight 122 lb 2.177 oz Most Recent Monitor Data Heart Rate from ECG 78 NIBP 108/61 NIBP BP-Mean 76 Respiration from ECG 23 SpO2 96 I&O: 02/04/20 02/05/20 02/06/20 06:59 06:59 06:59 Intake Total 1389.7 2160.2 2867 Output Total 0 1300 300 Balance 1389.7 860.2 2567 Result Diagrams: 02/05/20 03:49 02/05/20 03:49 Additional Labs: Microbiology 02/03/20 12:33 Venous blood - Right Hand Blood Culture - Preliminary Presumptive Strep pneumoniae 02/03/20 11:34 Venous blood - Right Arm Blood Culture - Preliminary Streptococcus pneumoniae Laboratory Tests 02/03/20 02/03/20 02/03/20 11:39 11:44 13:18 WBC 62.9 H* Hgb 9.3 L MCV 107.0 H Band Neuts % (Manual) 43 H D-Dimer 10.56 H Cortisol COVID-19 PCR Not Detected 02/04/20 02/05/20 11:05 03:49 WBC Hgb MCV Band Neuts % (Manual) 25 H D-Dimer Cortisol 19.90 COVID-19 PCR EKG Reviewed by me: Yes (Tele - SR) Hospitalist ROS - Medication Medications: Active Medications Generic Name Dose Route Start Last Admin Trade Name Freq PRN Reason Stop Dose Admin Citalopram Hydrobromide 10 mg 02/04/20 09:00 02/05/20 08:37 Celexa PO 10 mg DAILY PETAR Administration Enoxaparin Sodium 40 mg 02/04/20 09:00 02/05/20 08:38 Lovenox SC 40 mg 09 PETAR Administration Gabapentin 300 mg 02/03/20 21:00 02/05/20 15:45 Neurontin PO 300 mg TID PETAR Administration Cefepime HCl 1 gm/ Sodium 100 mls @ 200 mls/hr 02/04/20 13:00 02/05/20 13:11 Chloride IVPB 100 mls 1300 PETAR Administration Sodium Chloride 1,000 mls @ 100 mls/hr 02/03/20 16:00 02/05/20 17:08 Normal Saline 0.9% IV Not Given .Q10H PETAR - Exam General Appearance: NAD, awake alert Eye: PERRL, anicteric sclera ENT: normocephalic atraumatic, no oropharyngeal lesions Neck: supple, symmetric, no JVD, no thyromegaly Heart: RRR, no gallops, no rubs, normal peripheral pulses Heart - other findings: S1, S2 Respiratory: no wheezes Respiratory - other findings: coarse sounds bilat, diminished in bases Gastrointestinal: soft, non-tender, non-distended, normal bowel sounds, no palpable masses Extremities: no cyanosis, no clubbing, no edema Skin: normal turgor, no lesions Neurological: cranial nerve grossly intact, no new deficit Musculoskeletal: normal tone, generalized weakness Psychiatric: oriented to person, oriented to place Hosp A/P (1) Septic shock Code(s): A41.9 - SEPSIS, UNSPECIFIED ORGANISM; R65.21 - SEVERE SEPSIS WITH SEPTIC SHOCK Status: Acute Plan: Resolving and off pressor support, continue IV abx as outlined below (2) Pneumonia Code(s): J18.9 - PNEUMONIA, UNSPECIFIED ORGANISM Status: Acute Plan: Due to Strep pneumonia spp, continue Cefepime (3) Empyema Code(s): J86.9 - PYOTHORAX WITHOUT FISTULA Status: Acute Plan: continue medical mgmt, may need to consider CT if not clinically improving (4) Leukocytosis Code(s): D72.829 - ELEVATED WHITE BLOOD CELL COUNT, UNSPECIFIED Status: Acute Qualifiers: Leukocytosis type: bandemia Qualified Code(s): D72.825 - Bandemia Plan: Improved, continue current IV abx regimen, serial CBC - Plan continue antibiotics, PT/OT, geriatric social worker, respiratory therapy, DVT proph w/ SCDs Consults: Palliative Care Stable overall Continue IVF's @ 75ml/h Continue Cefepime IV PT for mobilization AM lab: BMP, CBC
[2020-02-06] MEDS: Sodium Chloride 0.9% 1,000 ML IV SCH ×2 (00:09→08:49)
[2020-02-06 04:58] LABS: Anion Gap 13 mmol/L (10-20); BUN (Urea Nitrogen) 14 mg/dL (9.8-20.1); Calc. Creatinine Clearance 89 mL/min (70-130); Calcium 8.2 mg/dL (7.8-10.44); Carbon Dioxide 20 mmol/L (23-31); Chloride 110 mmol/L (98-107); Estimated GFR-MDRD Greater than 90; Glucose 87 mg/dL (83-110); Potassium 3.6 mmol/L (3.5-5.1); Sodium 139 mmol/L (136-145)
[2020-02-06 05:22] LABS: Band 19 % (5-11); Hemoglobin 9.8 g/dL (12.0-16.0); Lymphocytes 7 % (21-51); MDiff Complete? YES; Mean Corpuscular HGB CONC 30.9 g/dL (32.0-36.0); Mean Corpuscular Hemoglobin 33.7 pg (27.0-31.0); Mean Platelet Volume 8.8 fL (7.4-10.4); Monocytes 1 % (0-10); Myelocyte 3 % (0-0); Neutrophil 70 % (42-75); Platelet Count 216 thou/uL (130-400); RBC Distribution Width 16.3 % (11.5-14.5); White Blood Cell (WBC) Count 22.1 thou/uL (4.8-10.8)
[2020-02-06] MEDS: Enoxaparin Sodium 40 MG/0.4 ML SYRINGE SC SCH (08:49)
[2020-02-06] MEDS: Citalopram 10 MG TAB PO SCH (08:49)
[2020-02-06] MEDS: Gabapentin 300 MG CAP PO SCH ×3 (08:49→20:28)
--- NOTE | 2020-02-06 09:51 | RAD ---
PORTABLE CHEST: DATE: 02/06/2020. PROVIDED CLINICAL HISTORY: Pneumonia. FINDINGS: Comparison 02/03/2020. The cardiac and mediastinal silhouette is unchanged in appearance. The right-s ided implanted port and left-sided central line are similar in positions. There is interval increase in opacification of the mid and lower right lung zones with pleural-based opacity seen at the latera l aspect of the right hemithorax that is new from prior. Additional significant interval change with respect to the prior examination is not apparent. IMPRESSION: Worsening right hemithoracic airspace disease with loculated fluid at the lateral margin of the right hemithorax. POS: KRISTINE
[2020-02-06] MEDS ORDERED: Furosemide 20 MG/2 ML VIAL SLOW IVP SCH (11:00)
--- NOTE | 2020-02-06 11:15 | PDOC.HOSPP ---
- Subjective Encounter Date: 02/06/20 Encounter Time: 11:05 Subjective: f/u for PNA/sepsis on current Cefepime. CXR showing increased effusion/ infiltrate in R hemithorax. Remains on O2 2L/min NC. - Objective Vital Signs & Weight: Vital Signs (12 hours) Temp Pulse Resp BP Pulse Ox 02/06/20 07:10 98.0 F 89 18 141/82 H 96 02/06/20 03:57 98.4 F 83 16 175/79 H 97 02/06/20 00:52 93 L 02/05/20 23:44 131/63 93 L Weight Admit Weight 118 lb Weight 129 lb 12.876 oz Most Recent Monitor Data Heart Rate from ECG 78 NIBP 108/61 NIBP BP-Mean 76 Respiration from ECG 23 SpO2 96 I&O: 02/05/20 02/06/20 02/07/20 06:59 06:59 06:59 Intake Total 2160.2 4007 Output Total 1300 750 Balance 860.2 3257 Result Diagrams: 02/06/20 03:59 02/06/20 03:59 Additional Labs: Accuchecks 02/05/20 20:06 POC Glucose 123 H Microbiology 02/03/20 12:33 Venous blood - Right Hand Blood Culture - Preliminary Presumptive Strep pneumoniae 02/03/20 11:34 Venous blood - Right Arm Blood Culture - Preliminary Streptococcus pneumoniae Laboratory Tests 02/03/20 02/03/20 02/03/20 11:39 11:44 13:18 WBC 62.9 H* Hgb 9.3 L MCV 107.0 H Band Neuts % (Manual) 43 H D-Dimer 10.56 H Cortisol COVID-19 PCR Not Detected 02/04/20 02/05/20 11:05 03:49 WBC Hgb MCV Band Neuts % (Manual) 25 H D-Dimer Cortisol 19.90 COVID-19 PCR Radiology Reviewed by me: Yes (PCXR - increased infiltrate/effusion R hemithorax , CVC in place, R port) EKG Reviewed by me: Yes (Tele - SR) Hospitalist ROS - Medication Medications: Active Medications Generic Name Dose Route Start Last Admin Trade Name Freq PRN Reason Stop Dose Admin Citalopram Hydrobromide 10 mg 02/04/20 09:00 02/06/20 08:49 Celexa PO 10 mg DAILY PETAR Administration Enoxaparin Sodium 40 mg 02/04/20 09:00 02/06/20 08:49 Lovenox SC 40 mg 0900 PETAR Administration Gabapentin 300 mg 02/03/20 21:00 02/06/20 08:49 Neurontin PO 300 mg TID PETAR Administration Cefepime HCl 1 gm/ Sodium 100 mls @ 200 mls/hr 02/04/20 13:00 02/05/20 13:11 Chloride IVPB 100 mls 1300 PETAR Administration - Exam General Appearance: ill appearing General - other findings: tachypneic Eye: PERRL, anicteric sclera ENT: normocephalic atraumatic, no oropharyngeal lesions Neck: supple, symmetric, no JVD, no thyromegaly Heart: RRR, no gallops, no rubs, normal peripheral pulses Respiratory - other findings: diminished bilat, basilar crackles and coarse sounds Gastrointestinal: soft, non-tender, non-distended, normal bowel sounds, no palpable masses Extremities: no cyanosis, 1+ LE edema Extremities - other findings: LUE edema(chronic) Skin: normal turgor Neurological: cranial nerve grossly intact, no new deficit Musculoskeletal: normal tone, generalized weakness Psychiatric: normal affect, A&O x 3 Hosp A/P (1) Pneumonia Code(s): J18.9 - PNEUMONIA, UNSPECIFIED ORGANISM Status: Acute Plan: Strep spp covered with Cefepime currently, ? progression given CXR findings (2) Empyema Code(s): J86.9 - PYOTHORAX WITHOUT FISTULA Status: Acute Plan: Suspected, trial of Lasix 20mg IV x 1 today, serial monitoring, consider CT imaging (3) Leukocytosis Code(s): D72.829 - ELEVATED WHITE BLOOD CELL COUNT, UNSPECIFIED Status: Acute Qualifiers: Leukocytosis type: bandemia Qualified Code(s): D72.825 - Bandemia Plan: Improving, serial monitoring (4) Septic shock Code(s): A41.9 - SEPSIS, UNSPECIFIED ORGANISM; R65.21 - SEVERE SEPSIS WITH SEPTIC SHOCK Status: Acute Plan: resolved, saline lock IVF's (5) Breast carcinoma Code(s): C50.919 - MALIGNANT NEOPLASM OF UNSP SITE OF UNSPECIFIED FEMALE BREAST Status: Chronic Qualifiers: Laterality: bilateral Plan: s/p bilat mastectomy with current chemotherapy - Plan continue antibiotics, PT/OT, social science instructor, respiratory therapy, out of bed/ ambulate, DVT proph w/SCDs Stable overall Saline lock IVF's Continue Cefepime IV Lasix 20mg IV x 1 today 2D echo pending PT for mobilization AM lab: BMP, CBC
[2020-02-06] MEDS: Cefepime 1 GM in Sodium Chloride 0.9% 100 ML IVPB SCH (13:10)
--- NOTE | 2020-02-06 13:27 | PRG ---
DATE OF SERVICE: 02/06/2020 SUBJECTIVE: The patient says she feels okay. She is a little sore on the right side. OBJECTIVE: VITAL SIGNS: Temperature 98.2, pulse 89, respirations 20, O2 saturation 100%, blood pressure 175/83. HEENT: Unremarkable. NECK: No adenopathy or JVD. LUNGS: Clear anteriorly except on the right, where she has diminished breath sounds. ABDOMEN: Soft. EXTREMITIES: Severe muscle wasting. LABORATORY DATA: White blood cell count 22.1, hematocrit 31.7, platelet count 216. Sodium 139, potassium 3.6, chloride 110, CO2 of 20, BUN 14, creatinine 0.5, glucose 87. Her x-ray looks a little worse today. ASSESSMENT AND PLAN: I think she probably has an evolving empyema on the right. I will go ahead and repeat her CT scan without contrast this afternoon. If it looks worse, then she will need a Thoracic Surgery consult. Job ID: [id number]
--- NOTE | 2020-02-06 15:48 | CT ---
EXAM: CT Chest WO Con PROVIDED CLINICAL HISTORY: Pleural effusion COMPARISON: 02/03/2020 FINDINGS: The heart, pericardium and great vessels are suboptimally evaluated in the absence of IV contrast mat erial, demonstrating a stable unenhanced CT appearance. Left subclavian central line and right subclavian implanted port are redemonstrated in similar positions. There is interval increase in the degree of right pleural fluid, some of which is apparently loculate d at the right lateral hemithorax. Loculated fluid at the right lung apex seen on the prior is no longer present. There is similar left pleural fluid. Bibasilar consolidations/passive atelectasis ally ears similar. Right middle lobe and anterior segment right upper lobe groundglass opacity and interstitial thickening appear more conspicuous than on prior. Emphysematous changes are redemonstrated. The airway appears patent and of normal caliber centrally. There is no evidence for pneumothorax. The visualized portions of the upper abdomen demonstrate an unchanged unenhanced CT appearance. The osseous structures demonstrate no concerning lytic or blastic lesions. IMPRESSION: 1. Bilateral pleural fluid, some of which appears loculated at the lateral margin of the right hemith orax. 2. Interval increase in conspicuity of groundglass opacity and associated interstitial thickening inv olving the right middle lobe and anterior segment right upper lobe.
[2020-02-07] MEDS ORDERED: hydrALAZINE 20 MG/ML VIAL SLOW IVP PRN (00:17)
[2020-02-07] MEDS ORDERED: Labetalol HCl 100 MG/20 ML VIAL SLOW IVP PRN (01:24)
[2020-02-07 05:40] LABS: Hemoglobin 10.2 g/dL (12.0-16.0); Mean Corpuscular HGB CONC 31.1 g/dL (32.0-36.0); Mean Corpuscular Hemoglobin 33.5 pg (27.0-31.0); Mean Platelet Volume 8.5 fL (7.4-10.4); Platelet Count 212 thou/uL (130-400); RBC Distribution Width 16.2 % (11.5-14.5); Red Blood Cell (RBC) Count 3.06 mill/uL (4.20-5.40); White Blood Cell (WBC) Count 22.1 thou/uL (4.8-10.8)
[2020-02-07 05:45] LABS: Anion Gap 13 mmol/L (10-20); BUN (Urea Nitrogen) 9 mg/dL (9.8-20.1); Calc. Creatinine Clearance 86 mL/min (70-130); Calcium 7.9 mg/dL (7.8-10.44); Carbon Dioxide 25 mmol/L (23-31); Chloride 99 mmol/L (98-107); Estimated GFR-MDRD Greater than 90; Glucose 102 mg/dL (83-110); Sodium 134 mmol/L (136-145)
[2020-02-07 06:03] LABS: Potassium 2.7 mmol/L (3.5-5.1)
--- NOTE | 2020-02-07 06:47 | CON ---
DATE OF CONSULTATION: 02/06/2020 REQUESTING PHYSICIAN: Ralph Patiño MD CHIEF COMPLAINT: Cough and shortness of breath. HISTORY OF PRESENT ILLNESS: The patient is a 74-year-old woman, who has undergone bilateral mastectomies and is undergoing chemotherapy for metastatic breast cancer. She has previously undergone radiation therapy as well and is currently on Tecentriq and Abraxane with her most recent treatment being about a week ago. When she presented for her second cycle of chemotherapy, she was noted to be quite weak, felt ill, and was short of breath. On questioning, she had not had any fever or chills, but she had lost about 8 pounds over the course of about a month and was spending most of her day sitting in her recliner. She was mildly hypoxic and hypotensive , and was sent to the emergency room from the [facility]. Her chest x-ray showed a right lower lobe infiltrate and there was perhaps a little bit of blunting of the costophrenic angle, which actually was more noticeable on the left. CT scanning showed a small amount of fluid with some loculation at the apex and a little bit of fluid at the base going into the costophrenic sulcus and there was consolidation of the base of the lung. She was started on dopamine, given fluids and started on antibiotics, and clinically improved and in fact was transferred out of the intensive care unit yesterday. Followup chest x-ray today, however, showed marked worsening of her right hemithorax with fluid tracking up along the lateral aspect of the chest and loss of definition of much of the right hemidiaphragm. CT scanning more dramatically demonstrates that effusion with loculated fluid tracking up laterally and the fluid that had been seen at the apex previously is no longer seen. There is no obvious rind or air bubbles within the fluid. A small amount of fluid in the left costophrenic sulcus is the same. PAST MEDICAL HISTORY: Significant for her breast cancer, hypertension, and gout. HOME MEDICATIONS: 1. Hydrochlorothiazide. 2. Megestrol. 3. [place]. 4. Fentanyl patch. 5. Potassium. Currently she is on, 1. Cefepime. 2. Celexa. 3. Neurontin. 4. DVT prophylaxis Lovenox. ALLERGIES: SHE DENIES ANY MEDICAL ALLERGIES. REVIEW OF SYSTEMS: Significant for her shortness of breath and easy fatigability. PHYSICAL EXAMINATION: GENERAL: She is a thin, rather cantankerous woman. VITAL SIGNS: She is 5 feet 5 inches. Weighs 130 pounds on today's weight, although previous weights this hospitalization were listed as 118 and 122. She has been afebrile throughout this hospitalization and her most recent temperature is 98.3. Her heart rates were in the 60s and 70s, and systolic blood pressures in the 60s to 80s on presentation in the emergency room. Currently, her heart rate is in the 80s and systolic blood pressure has been mostly in the 120 to 140 range with occasional spikes into the 170s. She has bilateral mastectomy scars. She has a Port-A- Cath in the right upper chest wall that radiographically appears to be subclavian approach. She has a left central line in place. She has scaly dark pigmented changes across her anterior chest wall, and on her scalp she has alopecia. She has coarse breath sounds with marked diminution of breath sounds posteriorly on the right chest. ABDOMEN: Soft and nontender. LABORATORY DATA: Her white count was 62.9 with 47 neutrophils and 43 bands on admission. Today, her white count is 22.1 with 55 neutrophils and 19 bands. Hemoglobin is 9.8, hematocrit 31.7, platelet count 216,000. Her electrolytes are normal. BUN 14, creatinine 0.53, glucose is 87. Her x-rays are as described above. IMPRESSION AND PLAN: The patient's blood cultures from admission grew out pneumococcus. She had a relatively moderate-sized pleural effusion on the right side that is now significantly increased in size. I think it is far more likely that this represents an empyema than a malignant effusion. Hopefully, it will be amenable to a thoracoscopic drainage, but I will be prepared for an open decortication if necessary and have scheduled this for in the morning. Job ID: [id number] MTDD
[2020-02-07 06:54] LABS: Band 13 % (5-11); Lymphocytes 4 % (21-51); MDiff Complete? YES; Metamyelocyte 2 % (0-0); Monocytes 6 % (0-10); Myelocyte 4 % (0-0); Neutrophil 71 % (42-75); Nucleated RBC 1 % (0)
[2020-02-07] MEDS ORDERED: Potassium Chloride 20 MEQ TAB PO SCH (07:00)
[2020-02-07] MEDS ORDERED: POTASSIUM CHLORIDE IVPB SCH (07:00)
[2020-02-07] MEDS ORDERED: SODIUM CHLORIDE 0.9% IVPB SCH (07:00)
--- NOTE | 2020-02-07 07:46 | RAD ---
Exam: Chest one view HISTORY:Pneumonia Comparison: 02/06/2020 FINDINGS: Lines and tubes: Stable left-sided central venous catheter and right-sided Port-A-Cath Cardiac silhouette:Cardiomegaly Aorta: Atherosclerosis Pulmonary vessels: Normal Costophrenic angles: Stable loculated right-sided pleural effusion LUNGS: Stable interstitial and alveolar opacities. Stable hyperinflation. Pneumothorax: None Osseous abnormalities: None IMPRESSION: No significant interval change
[2020-02-07] MEDS: Citalopram 10 MG TAB PO SCH (08:39)
[2020-02-07] MEDS: Enoxaparin Sodium 40 MG/0.4 ML SYRINGE SC SCH (08:39)
[2020-02-07] MEDS: Gabapentin 300 MG CAP PO SCH ×3 (08:39→21:04)
--- NOTE | 2020-02-07 10:06 | PRG ---
DATE OF SERVICE: 02/07/2020 SUBJECTIVE: Ms. Sinha is very cantankerous. She is unhappy that she is in the hospital. She is not having much in the way of right-sided pain. PHYSICAL EXAMINATION: VITAL SIGNS: Temperature 97.7, pulse 78, blood pressure 134/80, O2 saturation 100%. HEENT: Unremarkable. NECK: No JVD. LUNGS: Diminished breath sounds on the right. Clear on the left. CARDIAC: S1 and S2, regular. ABDOMEN: Soft. EXTREMITIES: No edema. LABORATORY DATA: White blood cell count 22.1, hematocrit 33, and platelet count 212. Sodium 134, potassium 2.7, chloride 99, CO2 of 25, BUN 9, creatinine 0.5, and glucose 102. ASSESSMENT: 1. Right-sided complex effusion, likely empyema. 2. Streptococcal sepsis. 3. Hypokalemia. 4. Breast cancer. PLAN: 1. Potassium was given this morning. 2. Decortication by Dr. Chacon later today. 3. We will follow. Job ID: [id number]
[2020-02-07] MEDS ORDERED: Bupivacaine PF 0.5% 30 ML VIAL ONE (10:57)
[2020-02-07] MEDS ORDERED: EPINEPHrine 1 MG/ML AMP ONE (10:57)
[2020-02-07] MEDS ORDERED: Ondansetron PF 4 MG/2 ML Vial ONE (11:00)
[2020-02-07] MEDS ORDERED: Rocuronium Bromide 10 MG/ML (10ML VIAL) ONE (11:00)
[2020-02-07] MEDS ORDERED: Dexamethasone 20 MG/5 ML VIAL ONE (11:00)
[2020-02-07] MEDS ORDERED: Glycopyrrolate 0.2 MG/ML 5 ML SYRINGE ONE (11:00)
[2020-02-07] MEDS ORDERED: Lidocaine 1% PF 5 ML VIAL ONE (11:00)
[2020-02-07] MEDS ORDERED: PROPOFOL 200 MG/20 ML VIAL ONE (11:00)
[2020-02-07] MEDS ORDERED: PHENYLEPHRINE-NS 100 MCG/ML 10 ML SYRINGE ONE (11:00)
[2020-02-07] MEDS ORDERED: Succinylcholine Chloride 20 MG/ML 10 ml SYRINGE FS ONE (11:00)
[2020-02-07] MEDS ORDERED: EPHEDRINE 25 MG/5 ML SYRINGE ONE (11:00)
[2020-02-07] MEDS ORDERED: Fentanyl 250 MCG/5 ML VIAL ONE (11:50)
[2020-02-07] MEDS ORDERED: Midazolam HCl 2 mg/2 ml Vial ONE (11:50)
--- NOTE | 2020-02-07 12:15 | PDOC.HOSPP ---
- Subjective Encounter Date: 02/07/20 Encounter Time: 12:15 Subjective: f/u for R pleural effusion/PNA/sepsis and likely empyema. Plan for decortication today. Receiving Cefepime IV currently. - Objective Vital Signs & Weight: Vital Signs (12 hours) Temp Pulse Resp BP Pulse Ox 02/07/20 08:40 100 02/07/20 07:52 97.7 F 78 20 174/80 H 100 02/07/20 04:21 98.5 F 82 16 173/84 H 98 02/07/20 00:44 96 02/07/20 00:40 88 Weight Admit Weight 118 lb Weight 122 lb 2.177 oz Most Recent Monitor Data Heart Rate from ECG 78 NIBP 108/61 NIBP BP-Mean 76 Respiration from ECG 23 SpO2 96 I&O: 02/06/20 02/07/20 02/08/20 06:59 06:59 06:59 Intake Total 4007 820 237 Output Total 750 2050 750 Balance 4727 -1230 -513 Result Diagrams: 02/07/20 04:47 02/07/20 04:47 Additional Labs: Microbiology 02/03/20 12:33 Venous blood - Right Hand Blood Culture - Preliminary Presumptive Strep pneumoniae 02/03/20 11:34 Venous blood - Right Arm Blood Culture - Preliminary Streptococcus pneumoniae Laboratory Tests 02/03/20 02/03/20 02/03/20 11:39 11:44 13:18 WBC 62.9 H* Hgb 9.3 L MCV 107.0 H Band Neuts % (Manual) 43 H D-Dimer 10.56 H Potassium Cortisol COVID-19 PCR Not Detected 02/04/20 02/05/20 02/06/20 11:05 03:49 03:59 WBC Hgb MCV Band Neuts % (Manual) 25 H D-Dimer Potassium 3.6 Cortisol 19.90 COVID-19 PCR Radiology Reviewed by me: Yes (CT chest - loculated R pleural effusion, increased infiltrate R) EKG Reviewed by me: Yes (Tele - SR) Hospitalist ROS - Medication Medications: Active Medications Generic Name Dose Route Start Last Admin Trade Name Freq PRN Reason Stop Dose Admin Citalopram Hydrobromide 10 mg 02/04/20 09:00 02/07/20 08:39 Celexa PO Not Given DAILY PETAR Enoxaparin Sodium 40 mg 02/04/20 09:00 02/07/20 08:39 Lovenox SC Not Given 0900 PETAR Gabapentin 300 mg 02/03/20 21:00 02/07/20 08:39 Neurontin PO Not Given TID PETAR Hydralazine HCl 10 mg 02/07/20 00:17 02/07/20 00:40 Apresoline SLOW IVP 10 mg Q4H PRN Administration SBP > 180 and HR < 70 Cefepime HCl 1 gm/ Sodium 100 mls @ 200 mls/hr 02/04/20 13:00 02/06/20 13:10 Chloride IVPB 100 mls 1300 PETAR Administration Potassium Chloride 60 meq/ 330 mls @ 55 mls/hr 02/07/20 07:00 02/07/20 07:19 Sodium Chloride IVPB 02/07/20 12:59 330 mls NOW PETAR Administration Labetalol HCl 20 mg 02/07/20 01:24 02/07/20 02:00 Normodyne SLOW IVP 20 mg Q4H PRN Administration SBP >=180 - Exam General Appearance: NAD, awake alert Eye: PERRL, anicteric sclera ENT: normocephalic atraumatic, no oropharyngeal lesions Neck: supple, symmetric, no JVD, no thyromegaly Heart: RRR, no gallops, no rubs, normal peripheral pulses Heart - other findings: S1, S2 Respiratory: tachypneic Respiratory - other findings: diminished R hemithorax Gastrointestinal: soft, non-tender, non-distended, normal bowel sounds, no palpable masses Extremities: no cyanosis, no clubbing, no edema Skin: normal turgor Neurological: cranial nerve grossly intact, no new deficit Musculoskeletal: normal tone, generalized weakness Psychiatric: normal affect, A&O x 3 Hosp A/P (1) Pneumonia Code(s): J18.9 - PNEUMONIA, UNSPECIFIED ORGANISM Status: Acute Plan: Bilateral involvement R>L with Strep spp, continue Cefepime (2) Empyema Code(s): J86.9 - PYOTHORAX WITHOUT FISTULA Status: Acute Plan: Thoracotomy/decortication planned today (3) Leukocytosis Code(s): D72.829 - ELEVATED WHITE BLOOD CELL COUNT, UNSPECIFIED Status: Acute Qualifiers: Leukocytosis type: bandemia Qualified Code(s): D72.825 - Bandemia Plan: Improved but persistent elevation, serial monitoring, likely related to empyema (4) Septic shock Code(s): A41.9 - SEPSIS, UNSPECIFIED ORGANISM; R65.21 - SEVERE SEPSIS WITH SEPTIC SHOCK Status: Acute (5) Breast carcinoma Code(s): C50.919 - MALIGNANT NEOPLASM OF UNSP SITE OF UNSPECIFIED FEMALE BREAST Status: Chronic Qualifiers: Laterality: bilateral - Plan continue antibiotics, PT/OT, social media analyst, respiratory therapy, out of bed/ ambulate, DVT proph w/SCDs Consults: Palliative Care Stable overall Saline lock IVF's Continue Cefepime IV 2D echo EF 55-60% PT for mobilization AM lab: BMP, CBC
[2020-02-07] MEDS ORDERED: Ondansetron HCl/PF 4 MG/2 ML Vial IVP PRN (14:15)
[2020-02-07] MEDS ORDERED: Promethazine HCl 25 MG/ML VIAL SLOW IVP PRN (14:15)
[2020-02-07] MEDS ORDERED: Promethazine HCl 25 MG/ML VIAL IM PRN (14:15)
--- NOTE | 2020-02-07 14:40 | RAD ---
EXAM: CHEST ONE VIEW HISTORY: Post thoracotomy. COMPARISON: 02/07/2020 at 0531 hours. FINDINGS: Right-sided Mediport catheter as well as left subclavian central venous catheter remain in place unch anged in position. There is been interval placement of 2 right-sided thoracostomy tubes. Previously noted right pleural density is not utilized on this exam. No pneumothorax is seen. There are increase d interstitial densities seen bilaterally also present on prior exam which may be related to chronic interstitial lung changes. No new area of consolidation is seen. There is slight blunting lef t lateral costophrenic angle suggesting a small left pleural effusion. The osseous structures are intact. Surgical clips are again seen overlying the left axilla. IMPRESSION: 1. Interval placement of 2 right-sided thoracostomy tubes and interval decrease in right pleural flui d collection. 2. Small left pleural effusion. 3. Persistent interstitial densities bilaterally which is likely attributable to chronic interstitial lung changes.
[2020-02-07 15:04] LABS: Fluid, Protein 3.4 g/dL (Not Available)
[2020-02-07 15:22] LABS: RBC Count-Automated (BF) 8691 /cumm; WBC/Nucleated-Auto (BF) 1469 uL
[2020-02-07 15:33] LABS: BF Color Pink; Body Fluid Source Pleural Fluid; Clarity Cloudy/Turbid (Clear); Tube # EDTA
[2020-02-07] MEDS ORDERED: Fentanyl 100 MCG/2 ML VIAL SLOW IVP PRN ×2 (15:59)
[2020-02-07] MEDS ORDERED: Ondansetron PF 4 MG/2 ML Vial IVP PRN (15:59)
[2020-02-07 16:06] LABS: BF Segmented Neutrophils 68 %; Cell Count Non Hematic 23 %; Lymphocytes 9 %
[2020-02-07] MEDS: Cefepime 1 GM in Sodium Chloride 0.9% 100 ML IVPB SCH (16:07)
[2020-02-07] MEDS ORDERED: Ketorolac Tromethamine 15 MG/ML VIAL IVP SCH (18:00)
[2020-02-07] MEDS: Ketorolac Tromethamine 30 MG/ML VIAL IVP SCH (18:21)
--- NOTE | 2020-02-07 21:35 | OP ---
DATE OF PROCEDURE: 02/07/2020 PROCEDURE PERFORMED: Right thoracoscopic decortication and multiple intercostal rib blocks. PREOPERATIVE DIAGNOSIS: Right thoracic empyema. POSTOPERATIVE DIAGNOSIS: Right parapneumonic effusion. ANESTHESIA: General endotracheal anesthesia. INDICATIONS FOR PROCEDURE: The patient is a 74-year-old woman, undergoing chemotherapy for metastatic breast cancer, who presented with septic shock and grew pneumococcus from blood cultures. She had some right basilar infiltrative changes on her chest x-ray and small right pleural effusion. That effusion dramatically increased over a short period of time and she is now taken to the operating room for decortication. FINDINGS: About a liter of slightly turbid yellow fluid with coagulum, primarily on the dependent portions of the lung. DESCRIPTION OF PROCEDURE: After informed consent was obtained, the patient was taken to the operating room, placed in supine position on the operating table. After the induction of general anesthesia, the patient was turned in the left lateral decubitus position and the right chest was prepped and draped in sterile fashion with single lung ventilation, allowing the right lung to become atelectatic. An incision was made about two interspaces below and slightly posterior to the tip of the scapula. Blunt dissection was used to enter the pleural space and aliquots of pleural fluid were collected for laboratory, microbiologic, and cytologic studies. The remaining gross amount of fluid was aspirated and then a thoracoscope port and scope were inserted. Under thoracoscopic guidance, a second incision low on the chest was made which could be incorporated into a chest tube exit site. Through that incision, thoracoscopic instruments were inserted to break down loculations of coagulum stranding across the pleural space and then to debride it from the lung and extract it from the chest. An additional incision more posteriorly and inferiorly than the original port site was made to facilitate debridement and evacuation of coagulum from the posterior base of the lung in the costophrenic sulcus. The chest was irrigated and inspected. There were no apparent tumor implants or other signs of this representing a malignant effusion. An additional incision was made anteriorly for an anterior apical chest tube. The original chest tube exit site was used for posterior apical tube. Both tubes were measured thoracoscopically to allow for cutting of additional holes in them. They were positioned and secured to the skin with suture and the lung reinflated. A 0.5% Marcaine with epinephrine was used to perform intercostal rib blocks above and below the ribs for the incisions. Marcaine was also infiltrated into the skin and subcutaneous tissues at the port sites and chest tube exit sites. The two posterior incisions were closed in layers of 2-0 Vicryl for the muscle and subcutaneous tissue and a 4-0 Vicryl subcuticular suture for the skin. The wounds were dressed. The patient was extubated in the operating room and taken to recovery area in good condition. Job ID: [id number]
[2020-02-08] MEDS: Ketorolac Tromethamine 30 MG/ML VIAL IVP SCH ×4 (00:50→19:08)
[2020-02-08 05:23] LABS: Anion Gap 12 mmol/L (10-20); BUN (Urea Nitrogen) 15 mg/dL (9.8-20.1); Calc. Creatinine Clearance 77 mL/min (70-130); Calcium 7.8 mg/dL (7.8-10.44); Carbon Dioxide 25 mmol/L (23-31); Chloride 100 mmol/L (98-107); Estimated GFR-MDRD Greater than 90; Glucose 102 mg/dL (83-110); Potassium 4.3 mmol/L (3.5-5.1); Sodium 133 mmol/L (136-145)
[2020-02-08 06:30] LABS: Band 22 % (5-11); Hemoglobin 10.2 g/dL (12.0-16.0); Lymphocytes 6 % (21-51); MDiff Complete? YES; Mean Corpuscular HGB CONC 31.9 g/dL (32.0-36.0); Mean Corpuscular Hemoglobin 34.2 pg (27.0-31.0); Mean Platelet Volume 8.7 fL (7.4-10.4); Monocytes 5 % (0-10); Neutrophil 67 % (42-75); Platelet Count 240 thou/uL (130-400); RBC Distribution Width 16.3 % (11.5-14.5); Red Blood Cell (RBC) Count 2.97 mill/uL (4.20-5.40); White Blood Cell (WBC) Count 23.1 thou/uL (4.8-10.8)
--- NOTE | 2020-02-08 07:52 | RAD ---
Exam: Chest one view HISTORY:Status post thoracotomy Comparison: 02/07/2020 FINDINGS: Lines and tubes: Stable right-sided chest tubes, Mediport catheter and subclavian vascular catheter. Cardiac silhouette:Stable cardiomegaly Aorta: Unremarkable Pulmonary vessels: Normal Costophrenic angles: Small bilateral effusions LUNGS: Persistent interstitial and alveolar opacities Pneumothorax: None Osseous abnormalities: None IMPRESSION: No significant interval change
--- NOTE | 2020-02-08 09:10 | PRG ---
DATE OF SERVICE: 02/08/2020 SUBJECTIVE: She had thoracoscopy yesterday, has two chest tubes in now. Fluid was exudative with a neutrophilic predominance. Cultures are pending. Gram stain did not show any organisms. This morning, she feels okay. No complaints. OBJECTIVE: VITAL SIGNS: Temperature 97, pulse 64, respirations 17, O2 saturation 100% on 2 L, and blood pressure 136/76. HEENT: Unremarkable. NECK: No JVD. LUNGS: Clear bilaterally. CARDIAC: S1 and S2. Regular. ABDOMEN: Soft. EXTREMITIES: No edema. LABORATORY DATA: White blood cell count 23, hematocrit 31.9, and platelet count 240. Sodium 133, potassium 4.3, chloride 100, CO2 of 25, BUN 15, creatinine 0.6, and glucose 102. ASSESSMENT: 1. Complex right pleural effusion. 2. Status post decortication. 3. Pneumococcal sepsis. 4. Breast cancer. PLAN: Hopefully, chest tubes can come out in a day or two. We will await cultures. For the time being, she is continuing on cefepime. Job ID: [id number]
[2020-02-08] MEDS: Citalopram 10 MG TAB PO SCH (10:10)
[2020-02-08] MEDS: Enoxaparin Sodium 40 MG/0.4 ML SYRINGE SC SCH (10:10)
[2020-02-08] MEDS: Gabapentin 300 MG CAP PO SCH ×3 (10:10→20:04)
[2020-02-08] MEDS: Cefepime 1 GM in Sodium Chloride 0.9% 100 ML IVPB SCH (12:48)
--- NOTE | 2020-02-08 13:22 | PDOC.HOSPP ---
- Subjective Encounter Date: 02/08/20 Encounter Time: 13:15 Subjective: f/u for R effusion/empyema s/p thoracoscopic decortication with CT placement. Remains on Cefepime pending pleural fluid cx results. - Objective Vital Signs & Weight: Vital Signs (12 hours) Temp Pulse Pulse Pulse Resp BP BP 02/08/20 12:41 97.0 F L 76 14 02/08/20 09:09 65 77 136/76 135/81 02/08/20 07:53 97.0 F L 64 17 02/08/20 03:05 97.6 F 70 17 BP Pulse Ox 02/08/20 12:41 98/56 L 97 02/08/20 09:09 02/08/20 07:53 136/76 100 02/08/20 03:05 119/90 98 Weight Admit Weight 118 lb 2.684 oz Weight 120 lb 13.013 oz Most Recent Monitor Data Heart Rate from ECG 78 NIBP 108/61 NIBP BP-Mean 76 Respiration from ECG 23 SpO2 96 I&O: 02/07/20 02/08/20 02/09/20 06:59 06:59 06:59 Intake Total 820 807 Output Total 2050 885 Balance -1230 -78 Result Diagrams: 02/08/20 04:43 02/08/20 04:43 Additional Labs: Microbiology 02/07/20 13:14 Lung - Tissue Bacterial Culture - Preliminary 02/07/20 13:13 Pleural fluid Body Fluid Culture - Preliminary 02/03/20 12:33 Venous blood - Right Hand Blood Culture - Preliminary Presumptive Strep pneumoniae 02/03/20 11:34 Venous blood - Right Arm Blood Culture - Preliminary Streptococcus pneumoniae Laboratory Tests 02/03/20 02/03/20 02/03/20 11:39 11:44 13:18 WBC 62.9 H* Hgb 9.3 L MCV 107.0 H Band Neuts % (Manual) 43 H D-Dimer 10.56 H Potassium Cortisol COVID-19 PCR Not Detected 02/04/20 02/05/20 02/06/20 11:05 03:49 03:59 WBC Hgb MCV Band Neuts % (Manual) 25 H D-Dimer Potassium 3.6 Cortisol 19.90 COVID-19 PCR 02/07/20 04:47 WBC Hgb MCV Band Neuts % (Manual) D-Dimer Potassium 2.7 L* Cortisol COVID-19 PCR Radiology Reviewed by me: Yes (PCXR - Chest tubes in place x 2, infiltrates unchanged) EKG Reviewed by me: Yes (Tele - SR) Hospitalist ROS - Medication Medications: Active Medications Generic Name Dose Route Start Last Admin Trade Name Freq PRN Reason Stop Dose Admin Citalopram Hydrobromide 10 mg 02/04/20 09:00 02/08/20 10:10 Celexa PO 10 mg DAILY PETAR Administration Enoxaparin Sodium 40 mg 02/04/20 09:00 02/08/20 10:10 Lovenox SC 40 mg 0900 PETAR Administration Gabapentin 300 mg 02/03/20 21:00 02/08/20 10:10 Neurontin PO 300 mg TID PETAR Administration Hydralazine HCl 10 mg 02/07/20 00:17 02/07/20 00:40 Apresoline SLOW IVP 10 mg Q4H PRN Administration SBP > 180 and HR < 70 Cefepime HCl 1 gm/ Sodium 100 mls @ 200 mls/hr 02/04/20 13:00 02/08/20 12:48 Chloride IVPB 100 mls 1300 PETAR Administration Ketorolac Tromethamine 15 mg 02/07/20 18:15 02/07/20 18:21 Toradol IVP 02/12/20 20:15 15 mg NOW PETAR Administration Labetalol HCl 20 mg 02/07/20 01:24 02/07/20 02:00 Normodyne SLOW IVP 20 mg Q4H PRN Administration SBP >=180 Sodium Chloride 10 ml 02/07/20 21:00 02/08/20 10:10 Flush - Normal Saline IVF 10 ml Q12HR PETAR Administration - Exam General Appearance: ill appearing General - other findings: responds slowly to questions Eye: PERRL, anicteric sclera ENT: normocephalic atraumatic, no oropharyngeal lesions Neck: supple, symmetric, no JVD, no thyromegaly Heart: RRR, no gallops, no rubs, normal peripheral pulses Heart - other findings: S1, S2 Respiratory: tachypneic Respiratory - other findings: diminished in R base, +coarse sounds, CT's in place x 2 Gastrointestinal: soft, non-tender, non-distended, normal bowel sounds, no palpable masses Extremities: no cyanosis, no clubbing, no edema Skin: normal turgor, no lesions Neurological: cranial nerve grossly intact, no new deficit Musculoskeletal: normal tone, generalized weakness Psychiatric: oriented to person, oriented to place Hosp A/P (1) Pneumonia Code(s): J18.9 - PNEUMONIA, UNSPECIFIED ORGANISM Status: Acute Qualifiers: Laterality: right Plan: Strep pneumonia on current Cefepime, pending pleural fluid cx (2) Empyema Code(s): J86.9 - PYOTHORAX WITHOUT FISTULA Status: Acute Plan: s/p thoracoscopic decortication with CT x 2 (3) Leukocytosis Code(s): D72.829 - ELEVATED WHITE BLOOD CELL COUNT, UNSPECIFIED Status: Acute Qualifiers: Leukocytosis type: bandemia Qualified Code(s): D72.825 - Bandemia (4) Septic shock Code(s): A41.9 - SEPSIS, UNSPECIFIED ORGANISM; R65.21 - SEVERE SEPSIS WITH SEPTIC SHOCK Status: Acute (5) Breast carcinoma Code(s): C50.919 - MALIGNANT NEOPLASM OF UNSP SITE OF UNSPECIFIED FEMALE BREAST Status: Chronic Qualifiers: Laterality: bilateral - Plan continue antibiotics, PT/OT, social media manager, respiratory therapy, out of bed/ ambulate Consults: Palliative Care Stable overall Saline lock IVF's Continue Cefepime IV 2D echo EF 55-60% Monitor CT x 2 PT for mobilization AM lab: BMP, CBC
[2020-02-08] MEDS: HYDROcodone/Acetaminophen 5/325 mg Tablet PO PRN (16:29)
[2020-02-09 05:18] LABS: Hemoglobin 9.2 g/dL (12.0-16.0); Mean Corpuscular HGB CONC 31.8 g/dL (32.0-36.0); Mean Corpuscular Hemoglobin 34.1 pg (27.0-31.0); Mean Platelet Volume 8.8 fL (7.4-10.4); Platelet Count 274 thou/uL (130-400); RBC Distribution Width 16.2 % (11.5-14.5)
[2020-02-09 05:27] LABS: Anion Gap 10 mmol/L (10-20); BUN (Urea Nitrogen) 22 mg/dL (9.8-20.1); Calc. Creatinine Clearance 71 mL/min (70-130); Calcium 7.9 mg/dL (7.8-10.44); Carbon Dioxide 31 mmol/L (23-31); Chloride 99 mmol/L (98-107); Estimated GFR-MDRD Greater than 90; Glucose 103 mg/dL (83-110); Potassium 3.9 mmol/L (3.5-5.1); Sodium 136 mmol/L (136-145)
[2020-02-09 05:41] LABS: Band 21 % (5-11); Lymphocytes 2 % (21-51); MDiff Complete? YES; Macrocytosis SLIGHT = 6-15 cells (100X) (0-5/hpf); Metamyelocyte 2 % (0-0); Monocytes 10 % (0-10); Myelocyte 5 % (0-0); Neutrophil 60 % (42-75)
--- NOTE | 2020-02-09 08:08 | RAD ---
SINGLE VIEW OF THE CHEST: Comparison: 02-08-2020 History: Decortication of the right chest. FINDINGS: Single view of the chest shows a normal sized cardiomediastinal silhouette with calcifications in the aorta. The lines and tubes are unchanged in position. No pneumothorax is seen. Chronic interstitial lung markings are present. IMPRESSION: Stable exam. POS: TOMA
[2020-02-09] MEDS: Enoxaparin Sodium 40 MG/0.4 ML SYRINGE SC SCH (09:16)
[2020-02-09] MEDS: Gabapentin 300 MG CAP PO SCH ×3 (09:16→21:38)
[2020-02-09] MEDS: Citalopram 10 MG TAB PO SCH (09:16)
--- NOTE | 2020-02-09 09:47 | PRG ---
DATE OF SERVICE: 02/09/2020 SUBJECTIVE: Ms. Sinha is very conversant this morning. Pleasant. Feeling much better. OBJECTIVE: VITAL SIGNS: Temperature 98.4, pulse 75, respirations 18, sat 97% on room air, and blood pressure 130/64. HEENT: Unremarkable. NECK: No JVD. LUNGS: Clear - has two chest tubes on the right. No air leak. CARDIAC: S1 and S2, regular. ABDOMEN: Soft. EXTREMITIES: No edema. LABORATORY DATA: White blood cell count 15, hematocrit 29, and platelet count 274. Sodium 136, potassium 3.9, BUN 22, creatinine 0.6, and glucose 103. Cultures showed no new growth. ASSESSMENT: 1. Right-sided parapneumonic complex effusion. 2. Status post decortication. 3. Pneumococcal sepsis. 4. Breast cancer. PLAN: Her Streptococcus was somewhat resistant organism. Based on that, we will go ahead and continue cefepime for 7 full days. Hopefully, the chest tubes could come out soon. Job ID: [id number]
--- NOTE | 2020-02-09 10:47 | PDOC.MOPN ---
Interval History: feeling much better, denies SOB. Has pain at CT site - Vital Signs Vital Signs: Vital Signs (12 hours) Temp Pulse Resp BP Pulse Ox 02/09/20 07:50 98.4 F 75 18 130/64 97 02/09/20 07:02 99 02/09/20 03:00 98.6 F 103 H 16 95/56 L 99 Weight Admit Weight 118 lb 2.684 oz Weight 122 lb 5.705 oz Most Recent Monitor Data Heart Rate from ECG 78 NIBP 108/61 NIBP BP-Mean 76 Respiration from ECG 23 SpO2 96 - Physical Exam General: Alert, Oriented x3, No acute distress HEENT: Atraumatic, PERRLA, EOMI, Mucous membr. moist/pink Lungs: Other Cardiovascular: Regular rate, Normal S1, Normal S2, No murmurs, Gallops, Rubs Abdomen: Normal bowel sounds, Soft, No tenderness, No hepatospenomegaly, No masses Extremities: Other (mild edema hands) Neurological: Normal speech - Labs Result Diagrams: 02/09/20 04:56 02/09/20 04:56 Lab results: Laboratory Results - last 24 hr 02/09/20 04:56: WBC 15.0 H, RBC 2.70 L, Hgb 9.2 L, Hct 29.0 L, MCV 107.0 H, MCH 34.1 H, MCHC 31.8 L, RDW 16.2 H, Plt Count 274, MPV 8.8, Neutrophils % (Manual) 60, Band Neuts % (Manual) 21 H, Lymphocytes % (Manual) 2 L, Monocytes % (Manual ) 10, Metamyelocytes % (Man) 2 H, Myelocytes % 5 H, Lymphocytes # Not Reportable , Macrocytosis SLIGHT = 6-15 cells 02/09/20 04:56: Sodium 136, Potassium 3.9, Chloride 99, Carbon Dioxide 31, Anion Gap 10, BUN 22 H, Creatinine 0.62, Estimated GFR (MDRD) Greater than 90, Glucose 103, Calcium 7.9 Status: lab reviewed by me A/P - Problem (1) Empyema Current Visit: Yes Code(s): J86.9 - PYOTHORAX WITHOUT FISTULA Status: Acute (2) Pneumonia Current Visit: Yes Code(s): J18.9 - PNEUMONIA, UNSPECIFIED ORGANISM Status: Acute Qualifiers: Laterality: right (3) Breast carcinoma Current Visit: Yes Code(s): C50.919 - MALIGNANT NEOPLASM OF UNSP SITE OF UNSPECIFIED FEMALE BREAST Status: Chronic Qualifiers: Laterality: bilateral - Plan Plan: Due for immunotherapy on 02/17 may postpone if not fully recovered. Home when ok with Pulm, Hospitalists
[2020-02-09] MEDS: Cefepime 1 GM in Sodium Chloride 0.9% 100 ML IVPB SCH (12:27)
[2020-02-09] MEDS: HYDROcodone/Acetaminophen 5/325 mg Tablet PO PRN (12:46)
--- NOTE | 2020-02-09 15:18 | PDOC.HOSPP ---
- Subjective Encounter Date: 02/09/20 Encounter Time: 15:05 Subjective: f/u for R empyema/parapneumonic effusion s/p decortication on current Cefepime. Chest tubes remain in place x 2. Feels a little better overall and ambulated with PT. - Objective Vital Signs & Weight: Vital Signs (12 hours) Temp Pulse Resp BP Pulse Ox 02/09/20 12:26 98.5 F 83 16 111/55 L 97 02/09/20 07:50 98.4 F 75 18 130/64 97 02/09/20 07:02 99 Weight Admit Weight 118 lb 2.684 oz Weight 122 lb 5.705 oz Most Recent Monitor Data Heart Rate from ECG 78 NIBP 108/61 NIBP BP-Mean 76 Respiration from ECG 23 SpO2 96 I&O: 02/08/20 02/09/20 02/10/20 06:59 06:59 06:59 Intake Total 807 660 Output Total 885 95 Balance -78 565 Result Diagrams: 02/09/20 04:56 02/09/20 04:56 Additional Labs: Microbiology 02/07/20 13:14 Lung - Tissue Bacterial Culture - Preliminary 02/07/20 13:13 Pleural fluid Body Fluid Culture - Preliminary 02/03/20 12:33 Venous blood - Right Hand Blood Culture - Preliminary Presumptive Strep pneumoniae 02/03/20 11:34 Venous blood - Right Arm Blood Culture - Preliminary Streptococcus pneumoniae Laboratory Tests 02/03/20 02/03/20 02/03/20 11:39 11:44 13:18 WBC 62.9 H* Hgb 9.3 L MCV 107.0 H Band Neuts % (Manual) 43 H D-Dimer 10.56 H Potassium Cortisol COVID-19 PCR Not Detected 02/04/20 02/05/20 02/06/20 11:05 03:49 03:59 WBC Hgb MCV Band Neuts % (Manual) 25 H D-Dimer Potassium 3.6 Cortisol 19.90 COVID-19 PCR 02/07/20 02/08/20 04:47 04:43 WBC 23.1 H Hgb 10.2 L MCV Band Neuts % (Manual) D-Dimer Potassium 2.7 L* Cortisol COVID-19 PCR Radiology Reviewed by me: Yes (PCXR - lines/tubes in place, no PTX, chronic changes) EKG Reviewed by me: Yes (Tele - SR) Hospitalist ROS - Medication Medications: Active Medications Generic Name Dose Route Start Last Admin Trade Name Freq PRN Reason Stop Dose Admin Hydrocodone Bitart/Acetaminophen 1 tab 02/07/20 15:59 02/08/20 16:29 [place] 5/325 PO 1 tab Q4H PRN Administration Mild Pain (1-3) Hydrocodone Bitart/Acetaminophen 2 tab 02/07/20 15:59 02/09/20 12:46 [place] 5/325 PO 2 tab Q4H PRN Administration Moderate Pain (4-6) Citalopram Hydrobromide 10 mg 02/04/20 09:00 02/09/20 09:16 Celexa PO 10 mg DAILY PETAR Administration Enoxaparin Sodium 40 mg 02/04/20 09:00 02/09/20 09:16 Lovenox SC 40 mg 0900 PETAR Administration Gabapentin 300 mg 02/03/20 21:00 02/09/20 09:16 Neurontin PO 300 mg TID PETAR Administration Hydralazine HCl 10 mg 02/07/20 00:17 02/07/20 00:40 Apresoline SLOW IVP 10 mg Q4H PRN Administration SBP > 180 and HR < 70 Cefepime HCl 1 gm/ Sodium 100 mls @ 200 mls/hr 02/04/20 13:00 02/09/20 12:27 Chloride IVPB 100 mls 1300 PETAR Administration Labetalol HCl 20 mg 02/07/20 01:24 02/07/20 02:00 Normodyne SLOW IVP 20 mg Q4H PRN Administration SBP >=180 Sodium Chloride 10 ml 02/07/20 21:00 02/09/20 09:16 Flush - Normal Saline IVF 10 ml Q12HR PETAR Administration - Exam General Appearance: NAD, awake alert Eye: PERRL, anicteric sclera ENT: normocephalic atraumatic, no oropharyngeal lesions Neck: supple, symmetric, no JVD, no thyromegaly Heart: RRR, no gallops, no rubs, normal peripheral pulses Heart - other findings: S1, S2 Respiratory - other findings: diminished in R base, CT's in place, R mediport noted Gastrointestinal: soft, non-tender, non-distended, normal bowel sounds, no palpable masses Extremities: no cyanosis, no clubbing Skin: normal turgor Neurological: cranial nerve grossly intact, no new deficit Musculoskeletal: normal tone, generalized weakness Psychiatric: normal affect, A&O x 3 Hosp A/P (1) Pneumonia Code(s): J18.9 - PNEUMONIA, UNSPECIFIED ORGANISM Status: Acute Qualifiers: Laterality: right Plan: Continue Cefepime IV, pulmonary support, parapneumonic effusion s/p CT's x 2 (2) Empyema Code(s): J86.9 - PYOTHORAX WITHOUT FISTULA Status: Acute Plan: See above, Strep pneumoniae isolated (3) Leukocytosis Code(s): D72.829 - ELEVATED WHITE BLOOD CELL COUNT, UNSPECIFIED Status: Acute Qualifiers: Leukocytosis type: bandemia Qualified Code(s): D72.825 - Bandemia Plan: Improved, continue serial monitoring (4) Septic shock Code(s): A41.9 - SEPSIS, UNSPECIFIED ORGANISM; R65.21 - SEVERE SEPSIS WITH SEPTIC SHOCK Status: Acute (5) Breast carcinoma Code(s): C50.919 - MALIGNANT NEOPLASM OF UNSP SITE OF UNSPECIFIED FEMALE BREAST Status: Chronic Qualifiers: Laterality: bilateral - Plan continue antibiotics, PT/OT, nursing home social worker, respiratory therapy, DVT proph w/ SCDs Stable overall Saline lock IVF's Continue Cefepime IV 2D echo EF 55-60% Monitor CT x 2 PT for mobilization AM lab: BMP, CBC
[2020-02-10 04:37] LABS: #Eosinphils 0.2 thou/uL (0.0-0.7); #Lymphocytes 1.2 thou/uL (1.20-3.40); #Monocytes 1.7 thou/uL (0.11-0.59); #Neutrophils 12.9 thou/uL (1.40-6.50); %Basophils 0.2 % (0.0-1.0); %Lymphocytes 7.6 % (21.0-51.0); %Monocytes 10.7 % (0.0-10.0); %Neutrophils 80.5 % (42.0-75.0); Hemoglobin 10.5 g/dL (12.0-16.0); Mean Corpuscular Hemoglobin 34.1 pg (27.0-31.0); Mean Platelet Volume 8.9 fL (7.4-10.4); Platelet Count 312 thou/uL (130-400); RBC Distribution Width 16.6 % (11.5-14.5); Red Blood Cell (RBC) Count 3.08 mill/uL (4.20-5.40); White Blood Cell (WBC) Count 16.1 thou/uL (4.8-10.8)
[2020-02-10 04:48] LABS: Anion Gap 13 mmol/L (10-20); BUN (Urea Nitrogen) 15 mg/dL (9.8-20.1); Calc. Creatinine Clearance 78 mL/min (70-130); Calcium 7.9 mg/dL (7.8-10.44); Carbon Dioxide 23 mmol/L (23-31); Chloride 102 mmol/L (98-107); Estimated GFR-MDRD Greater than 90; Glucose 76 mg/dL (83-110); Potassium 4.6 mmol/L (3.5-5.1); Sodium 133 mmol/L (136-145)
--- NOTE | 2020-02-10 07:36 | RAD ---
Chest one view HISTORY: Chest surgery. Follow-up. COMPARISON: 02/09/2020. FINDINGS: Cardiac silhouette is magnified by projection. Pulmonary vasculature are unremarkable. Mediastinum is midline. Tip of a left subclavian central venous catheter remains directed over the az ygos vein. Right thoracostomy tubes and right subclavian Port-A-Cath are unchanged. Ill-defined subtle patchy areas of parenchymal opacity involving each lower lobe and blunting of the left lateral costophrenic angle are stable. Mild gaseous distention of the stomach. Postoperative changes overlie each axilla. IMPRESSION : Stable radiographic appearance of the chest, with mild patchy bibasilar infiltrates and left pleural fluid. Tip of the left subclavian central venous catheter remains directed over the azygous vein.
[2020-02-10] MEDS: Enoxaparin Sodium 40 MG/0.4 ML SYRINGE SC SCH (08:52)
[2020-02-10] MEDS: Gabapentin 300 MG CAP PO SCH ×3 (08:52→19:49)
[2020-02-10] MEDS: Citalopram 10 MG TAB PO SCH (08:52)
[2020-02-10] MEDS: HYDROcodone/Acetaminophen 5/325 mg Tablet PO PRN ×3 (08:57→23:15)
--- NOTE | 2020-02-10 09:26 | PDOC.HOSPP ---
- Subjective Encounter Date: 02/10/20 Encounter Time: 09:25 Subjective: f/u for R parapneumonic effusion/empyema s/p decortication tx with CT's x 2 and Cefepime. No new complaints. Remains on room air. - Objective Vital Signs & Weight: Vital Signs (12 hours) Temp Pulse Resp BP Pulse Ox 02/10/20 07:02 98.7 F 90 16 124/57 L 94 L 02/10/20 03:14 97.5 F L 83 16 126/64 99 Weight Admit Weight 118 lb 2.684 oz Weight 122 lb 2.177 oz Most Recent Monitor Data Heart Rate from ECG 78 NIBP 108/61 NIBP BP-Mean 76 Respiration from ECG 23 SpO2 96 I&O: 02/09/20 02/10/20 02/11/20 06:59 06:59 06:59 Intake Total 660 1420 Output Total 95 675 Balance 565 745 Result Diagrams: 02/10/20 04:19 02/10/20 04:19 Additional Labs: Microbiology 02/07/20 13:14 Lung - Tissue Bacterial Culture - Preliminary 02/07/20 13:13 Pleural fluid Body Fluid Culture - Preliminary 02/03/20 12:33 Venous blood - Right Hand Blood Culture - Preliminary Presumptive Strep pneumoniae 02/03/20 11:34 Venous blood - Right Arm Blood Culture - Preliminary Streptococcus pneumoniae Laboratory Tests 02/03/20 02/03/20 02/03/20 11:39 11:44 13:18 WBC 62.9 H* Hgb 9.3 L MCV 107.0 H Band Neuts % (Manual) 43 H D-Dimer 10.56 H Potassium Cortisol COVID-19 PCR Not Detected 02/04/20 02/05/20 02/06/20 11:05 03:49 03:59 WBC Hgb MCV Band Neuts % (Manual) 25 H D-Dimer Potassium 3.6 Cortisol 19.90 COVID-19 PCR 02/07/20 02/08/20 04:47 04:43 WBC 23.1 H Hgb 10.2 L MCV Band Neuts % (Manual) D-Dimer Potassium 2.7 L* Cortisol COVID-19 PCR Radiology Reviewed by me: Yes (PCXR - CT's x 2 in position, basilar opacities, L pleural effusion) EKG Reviewed by me: Yes (Tele - SR) Hospitalist ROS - Medication Medications: Active Medications Generic Name Dose Route Start Last Admin Trade Name Freq PRN Reason Stop Dose Admin Hydrocodone Bitart/Acetaminophen 1 tab 02/07/20 15:59 02/08/20 16:29 [place] 5/325 PO 1 tab Q4H PRN Administration Mild Pain (1-3) Hydrocodone Bitart/Acetaminophen 2 tab 02/07/20 15:59 02/10/20 08:57 [place] 5/325 PO 2 tab Q4H PRN Administration Moderate Pain (4-6) Citalopram Hydrobromide 10 mg 02/04/20 09:00 02/10/20 08:52 Celexa PO 10 mg DAILY PETAR Administration Enoxaparin Sodium 40 mg 02/04/20 09:00 02/10/20 08:52 Lovenox SC 40 mg 0900 PETAR Administration Gabapentin 300 mg 02/03/20 21:00 02/10/20 08:52 Neurontin PO 300 mg TID PETAR Administration Hydralazine HCl 10 mg 02/07/20 00:17 02/07/20 00:40 Apresoline SLOW IVP 10 mg Q4H PRN Administration SBP > 180 and HR < 70 Cefepime HCl 1 gm/ Sodium 100 mls @ 200 mls/hr 02/04/20 13:00 02/09/20 12:27 Chloride IVPB 100 mls 1300 PETAR Administration Labetalol HCl 20 mg 02/07/20 01:24 02/07/20 02:00 Normodyne SLOW IVP 20 mg Q4H PRN Administration SBP >=180 Sodium Chloride 10 ml 02/07/20 21:00 02/10/20 08:52 Flush - Normal Saline IVF 10 ml Q12HR PETAR Administration - Exam General Appearance: NAD, awake alert Eye: PERRL, anicteric sclera ENT: normocephalic atraumatic, no oropharyngeal lesions Neck: supple, symmetric, no JVD, no thyromegaly, no lymphadenopathy Heart: RRR, no gallops, no rubs, normal peripheral pulses Heart - other findings: S1, S2 Respiratory - other findings: diminished in bases bilat, occasional coarse sounds Gastrointestinal: soft, non-tender, non-distended, normal bowel sounds, no palpable masses Extremities: no cyanosis, no clubbing, no edema Skin: normal turgor Neurological: cranial nerve grossly intact, no new deficit Musculoskeletal: normal tone, generalized weakness Psychiatric: normal affect, A&O x 3 Hosp A/P (1) Pneumonia Code(s): J18.9 - PNEUMONIA, UNSPECIFIED ORGANISM Status: Acute Qualifiers: Laterality: right Plan: Strep spp, continue Cefepime IV (2) Empyema Code(s): J86.9 - PYOTHORAX WITHOUT FISTULA Status: Acute Plan: s/p decortication with CT's x 2, continue to monitor outputs of CT's, pain control, no dominant organism from recent procedure (3) Leukocytosis Code(s): D72.829 - ELEVATED WHITE BLOOD CELL COUNT, UNSPECIFIED Status: Acute Qualifiers: Leukocytosis type: bandemia Qualified Code(s): D72.825 - Bandemia (4) Septic shock Code(s): A41.9 - SEPSIS, UNSPECIFIED ORGANISM; R65.21 - SEVERE SEPSIS WITH SEPTIC SHOCK Status: Resolved (5) Breast carcinoma Code(s): C50.919 - MALIGNANT NEOPLASM OF UNSP SITE OF UNSPECIFIED FEMALE BREAST Status: Chronic Qualifiers: Laterality: bilateral - Plan continue antibiotics, PT/OT, social group worker, respiratory therapy, out of bed/ ambulate, DVT proph w/SCDs Stable overall Saline lock IVF's Continue Cefepime IV 2D echo EF 55-60% Monitor CT x 2 PT for mobilization AM lab: CBC
--- NOTE | 2020-02-10 10:50 | PDOC.MOPN ---
Interval History: breathing improved, pain at CT site - Vital Signs Vital Signs: Vital Signs (12 hours) Temp Pulse Resp BP Pulse Ox 02/10/20 07:02 98.7 F 90 16 124/57 L 94 L 02/10/20 03:14 97.5 F L 83 16 126/64 99 Weight Admit Weight 118 lb 2.684 oz Weight 122 lb 2.177 oz Most Recent Monitor Data Heart Rate from ECG 78 NIBP 108/61 NIBP BP-Mean 76 Respiration from ECG 23 SpO2 96 - Physical Exam General: Alert, Oriented x3, No acute distress HEENT: Atraumatic, PERRLA, EOMI, Mucous membr. moist/pink Lungs: Other Cardiovascular: Regular rate, Normal S1, Normal S2, No murmurs, Gallops, Rubs Extremities: Other (LUE edema) Neurological: Normal speech Psych/Mental Status: Mental status NL - Labs Result Diagrams: 02/10/20 04:19 02/10/20 04:19 Lab results: Laboratory Results - last 24 hr 02/10/20 04:19: WBC 16.1 H, RBC 3.08 L, Hgb 10.5 L, Hct 33.8 L, MCV 110.0 H, MCH 34.1 H, MCHC 31.0 L, RDW 16.6 H, Plt Count 312, MPV 8.9, Neutrophils % 80.5 H, Lymphocytes % 7.6 L, Monocytes % 10.7 H, Eosinophils % 1.0, Basophils % 0.2, Neutrophils # 12.9 H, Lymphocytes # 1.2, Monocytes # 1.7 H, Eosinophils # 0.2, Basophils # 0.0 02/10/20 04:19: Sodium 133 L, Potassium 4.6, Chloride 102, Carbon Dioxide 23, Anion Gap 13, BUN 15, Creatinine 0.57 L, Estimated GFR (MDRD) Greater than 90, Glucose 76 L, Calcium 7.9 Status: lab reviewed by me A/P - Problem (1) Empyema Current Visit: Yes Code(s): J86.9 - PYOTHORAX WITHOUT FISTULA Status: Acute (2) Pneumonia Current Visit: Yes Code(s): J18.9 - PNEUMONIA, UNSPECIFIED ORGANISM Status: Acute Qualifiers: Laterality: right (3) Breast carcinoma Current Visit: Yes Code(s): C50.919 - MALIGNANT NEOPLASM OF UNSP SITE OF UNSPECIFIED FEMALE BREAST Status: Chronic Qualifiers: Laterality: bilateral - Plan Plan: Chest tube removed today denies SOB plan to see Dr. Grady on 02/17 and continue treatment if able.
[2020-02-10] MEDS: Cefepime 1 GM in Sodium Chloride 0.9% 100 ML IVPB SCH (12:24)
--- NOTE | 2020-02-10 13:28 | PRG ---
DATE OF SERVICE: 02/10/2020 SUBJECTIVE: The patient is doing well. I got her chest tubes out today. OBJECTIVE: VITAL SIGNS: Temperature 98.5, pulse 80, respirations 18, O2 sat 93% on room air, blood pressure 114/55. HEENT: Unremarkable. NECK: No adenopathy or JVD. LUNGS: Clear. CARDIAC: S1, S2. Regular. ABDOMEN: Soft. EXTREMITIES: No edema. Her pleural fluid did grow out alpha hemolytic Strep consistent with what was in her blood cultures. ASSESSMENT: 1. Parapneumonic effusion. 2. Status post decortication. 3. History of breast cancer. PLAN: I will go ahead and change her over to Omnicef. I would treat her for 2 weeks. She will need a followup x-ray in about 1 month. She should be stable to go home or to rehab by tomorrow. No further recommendations at this time. Please recall further assistance if needed. Job ID: [id number]
--- NOTE | 2020-02-10 16:50 | EKG ---
Test Reason : Blood Pressure : / mmHG Vent. Rate : 068 BPM Atrial Rate : 068 BPM P-R Int : 126 ms QRS Dur : 104 ms QT Int : 424 ms P-R-T Axes : 073 041 038 degrees QTc Int : 450 ms Normal sinus rhythm Minimal voltage criteria for LVH, may be normal variant ST elevation, consider early repolarization Borderline ECG Confirmed by ANN-MARIE DUNLAP, STARLA ([id number]), features editor KATHARINE HARRELL ([id number]) on 02/10/2020 4:49:41 PM Referred By: Confirmed By:STARLA JACOBSEN MD
[2020-02-11 04:44] LABS: Anion Gap 12 mmol/L (10-20); BUN (Urea Nitrogen) 12 mg/dL (9.8-20.1); Calc. Creatinine Clearance 82 mL/min (70-130); Carbon Dioxide 26 mmol/L (23-31); Chloride 101 mmol/L (98-107); Estimated GFR-MDRD Greater than 90; Glucose 77 mg/dL (83-110); Potassium 4.1 mmol/L (3.5-5.1); Sodium 135 mmol/L (136-145)
[2020-02-11 04:50] LABS: Band 15 % (5-11); Hemoglobin 9.5 g/dL (12.0-16.0); Hypochromia SLIGHT = 6-15 cells (100X) (0-5/hpf); Lymphocytes 4 % (21-51); MDiff Complete? YES; Macrocytosis SLIGHT = 6-15 cells (100X) (0-5/hpf); Mean Corpuscular Hemoglobin 34.6 pg (27.0-31.0); Mean Platelet Volume 8.7 fL (7.4-10.4); Metamyelocyte 1 % (0-0); Monocytes 10 % (0-10); Neutrophil 70 % (42-75); Platelet Count 316 thou/uL (130-400); Platelet Morphology Comment Appears Adequate; RBC Distribution Width 16.6 % (11.5-14.5); Red Blood Cell (RBC) Count 2.73 mill/uL (4.20-5.40); White Blood Cell (WBC) Count 14.5 thou/uL (4.8-10.8)
[2020-02-11 07:14] LABS: Fungus Stain Final report (.)
[2020-02-11 07:14] LABS: Fungus Stain Final report (.)
--- NOTE | 2020-02-11 07:49 | RAD ---
RADIOGRAPH CHEST 1 VIEW: DATE: 02/11/2020 TIME: 7:13 AM HISTORY: 74-year-old female status post removal of chest tube COMPARISON: 02/10/2020 FINDINGS: The 2 right-sided chest tubes have been removed. Tiny, less than 5% right apical pneumothorax. Bilate ral interstitial densities remain. Developing new 2.5 cm focal nodular patchy infiltrate at lateral mid left lung field. Left subclavian central line in azygos vein remains. Right subclavian implantabl e vascular access port remains at lower SVC. No cardiomegaly. Stable small bilateral pleural effusions. IMPRESSION: 1. Status post removal of right-sided chest tubes. 2. Tiny, less than 5% right apical pneumothorax. 3. Developing small focal nodular infiltrate at left lateral midlung zone. 4. The rest of the bilateral heterogeneous interstitial infiltrates remain. 5. No interval change in small bilateral pleural effusions.
[2020-02-11] MEDS: Gabapentin 300 MG CAP PO SCH ×3 (08:30→20:19)
[2020-02-11] MEDS: Cefdinir 300 MG CAP PO SCH (08:30)
[2020-02-11] MEDS: Citalopram 10 MG TAB PO SCH (08:30)
[2020-02-11] MEDS: Enoxaparin Sodium 40 MG/0.4 ML SYRINGE SC SCH (08:30)
[2020-02-11] MEDS: HYDROcodone/Acetaminophen 5/325 mg Tablet PO PRN ×2 (08:37→20:20)
--- NOTE | 2020-02-11 09:55 | PRG ---
DATE OF SERVICE: 02/11/2020 SUBJECTIVE: The patient is doing reasonably well, wants to go home. OBJECTIVE: VITAL SIGNS: Temperature 97.9, pulse 79, respirations 16, O2 saturations 91% on room air, and blood pressure 175/80. HEENT: Unremarkable. NECK: No adenopathy or JVD. CHEST: Clear anteriorly. CARDIAC: S1 and S2. Regular. ABDOMEN: Soft. EXTREMITIES: Muscle wasting present. No edema. LABORATORY DATA: Her chest x-ray shows small pneumothorax on the right. The effusion is resolved. ASSESSMENT: Status post evacuation of a right parapneumonic complex effusion by decortication and chest tube drainage. PLAN: See my note from yesterday. I would continue antibiotics to treat total of 14 days. I think she is probably ready for home or rehab, whatever is felt necessary. Please recall if further assistance needed. Job ID: [id number]
--- NOTE | 2020-02-11 15:05 | PDOC.HOSPP ---
- Subjective Encounter Date: 02/11/20 Encounter Time: 15:00 Subjective: f/u for R parapneumonic effusion s/p decortication and CT drainage with cx showing Strep spp. Currnetly transitioned to Omnicef. - Objective Vital Signs & Weight: Vital Signs (12 hours) Temp Pulse Pulse Resp BP Pulse Ox 02/11/20 13:37 74 02/11/20 11:25 98.2 F 79 16 107/54 L 96 02/11/20 07:13 97.9 F 79 16 175/80 H 91 L 02/11/20 04:00 99.5 F 67 16 143/71 H 100 02/11/20 03:50 97.4 F L 70 18 126/67 95 Weight Admit Weight 118 lb 2.684 oz Weight 119 lb 0.794 oz Most Recent Monitor Data Heart Rate from ECG 78 NIBP 108/61 NIBP BP-Mean 76 Respiration from ECG 23 SpO2 96 I&O: 02/10/20 02/11/20 02/12/20 06:59 06:59 06:59 Intake Total 1420 1410 Output Total 675 1325 Balance 745 85 Result Diagrams: 02/11/20 04:04 02/11/20 04:04 Additional Labs: Microbiology 02/07/20 13:14 Lung - Tissue Direct Acid Fast Bacilli Smear - Final 02/07/20 13:14 Lung - Tissue Acid Fast Bacilli Smear - Final 02/07/20 13:14 Lung - Tissue Bacterial Culture - Final 02/07/20 13:14 Lung - Tissue Anaerobic Culture - Final Streptococcus pneumoniae No growth. 02/07/20 13:14 Lung - Tissue Bacterial Culture - Preliminary 02/07/20 13:14 Lung - Tissue Acid Fast Bacilli Culture - Preliminary Specimen has been received and culture in progress. No Growth to date. 02/07/20 13:13 Pleural fluid Body Fluid Culture - Preliminary 02/03/20 12:33 Venous blood - Right Hand Blood Culture - Preliminary Presumptive Strep pneumoniae 02/03/20 11:34 Venous blood - Right Arm Blood Culture - Preliminary Streptococcus pneumoniae Laboratory Tests 02/03/20 02/03/20 02/03/20 11:39 11:44 13:18 WBC 62.9 H* Hgb 9.3 L MCV 107.0 H Band Neuts % (Manual) 43 H D-Dimer 10.56 H Potassium Cortisol COVID-19 PCR Not Detected 02/04/20 02/05/20 02/06/20 11:05 03:49 03:59 WBC Hgb MCV Band Neuts % (Manual) 25 H D-Dimer Potassium 3.6 Cortisol 19.90 COVID-19 PCR 02/07/20 02/08/20 04:47 04:43 WBC 23.1 H Hgb 10.2 L MCV Band Neuts % (Manual) D-Dimer Potassium 2.7 L* Cortisol COVID-19 PCR Radiology Reviewed by me: Yes (PCXR - CT's removed, small apical ptx, small bilat effusions) EKG Reviewed by me: Yes (Tele - SR) Hospitalist ROS - Medication Medications: Active Medications Generic Name Dose Route Start Last Admin Trade Name Freq PRN Reason Stop Dose Admin Hydrocodone Bitart/Acetaminophen 1 tab 02/07/20 15:59 02/08/20 16:29 [place] 5/325 PO 1 tab Q4H PRN Administration Mild Pain (1-3) Hydrocodone Bitart/Acetaminophen 2 tab 02/07/20 15:59 02/11/20 08:37 [place] 5/325 PO 2 tab Q4H PRN Administration Moderate Pain (4-6) Cefdinir 600 mg 02/11/20 09:00 02/11/20 08:30 Omnicef PO 600 mg DAILY PETAR Administration Citalopram Hydrobromide 10 mg 02/04/20 09:00 02/11/20 08:30 Celexa PO 10 mg DAILY PETAR Administration Enoxaparin Sodium 40 mg 02/04/20 09:00 02/11/20 08:30 Lovenox SC 40 mg 899 PETAR Administration Fentanyl 50 mcg 02/07/20 15:59 02/10/20 10:53 Sublimaze SLOW IVP 50 mcg Q2H PRN Administration Severe Pain (7-10) Gabapentin 300 mg 02/03/20 21:00 02/11/20 08:30 Neurontin PO 300 mg TID PETAR Administration Hydralazine HCl 10 mg 02/07/20 00:17 02/07/20 00:40 Apresoline SLOW IVP 10 mg Q4H PRN Administration SBP > 180 and HR < 70 Labetalol HCl 20 mg 02/07/20 01:24 02/07/20 02:00 Normodyne SLOW IVP 20 mg Q4H PRN Administration SBP >=180 Sodium Chloride 10 ml 02/07/20 21:00 02/11/20 08:30 Flush - Normal Saline IVF 10 ml Q12HR PETAR Administration - Exam General Appearance: NAD, awake alert General - other findings: frail, alert Eye: PERRL, anicteric sclera ENT: normocephalic atraumatic, no oropharyngeal lesions Neck: supple, symmetric, no JVD, no thyromegaly Heart: RRR, no murmur, no gallops, no rubs, normal peripheral pulses Heart - other findings: S1, S2 Respiratory: no tachypnea Respiratory - other findings: diminished in bases, few coarse sounds Gastrointestinal: soft, non-tender, non-distended, normal bowel sounds, no palpable masses Extremities: no cyanosis, no clubbing, no edema Skin: normal turgor Neurological: cranial nerve grossly intact, no new deficit Musculoskeletal: normal tone, generalized weakness Psychiatric: A&O x 3, flat affect Hosp A/P (1) Pneumonia Code(s): J18.9 - PNEUMONIA, UNSPECIFIED ORGANISM Status: Acute Qualifiers: Laterality: right Plan: Strep spp isolated from pleural fluid cx, transitioned to Omnicef to continue for 14 days, supportive mgmt (2) Empyema Code(s): J86.9 - PYOTHORAX WITHOUT FISTULA Status: Acute Plan: s/p decortication and CT's x [address]'s 02/10/20 (3) Leukocytosis Code(s): D72.829 - ELEVATED WHITE BLOOD CELL COUNT, UNSPECIFIED Status: Acute Qualifiers: Leukocytosis type: bandemia Qualified Code(s): D72.825 - Bandemia (4) Septic shock Code(s): A41.9 - SEPSIS, UNSPECIFIED ORGANISM; R65.21 - SEVERE SEPSIS WITH SEPTIC SHOCK Status: Resolved (5) Breast carcinoma Code(s): C50.919 - MALIGNANT NEOPLASM OF UNSP SITE OF UNSPECIFIED FEMALE BREAST Status: Chronic Qualifiers: Laterality: bilateral - Plan continue antibiotics, PT/OT, oncology social work, respiratory therapy, out of bed/ ambulate, DVT proph w/SCDs Stable overall Saline lock IVF's Continue Omnicef 600mg po daily 2D echo EF 55-60% Chest tubes removed 02/10/20 OOB with PT AM lab: CBC CM assistance for dispo, potentially swing bed in [place]
[2020-02-12 05:00] LABS: #Eosinphils 0.1 thou/uL (0.0-0.7); #Lymphocytes 1.1 thou/uL (1.20-3.40); #Monocytes 1.4 thou/uL (0.11-0.59); #Neutrophils 10.7 thou/uL (1.40-6.50); %Basophils 0.2 % (0.0-1.0); %Eosinophils 0.8 % (0.0-10.0); %Lymphocytes 8.4 % (21.0-51.0); %Monocytes 10.2 % (0.0-10.0); %Neutrophils 80.4 % (42.0-75.0); Hemoglobin 9.8 g/dL (12.0-16.0); Mean Corpuscular HGB CONC 31.1 g/dL (32.0-36.0); Mean Corpuscular Hemoglobin 34.4 pg (27.0-31.0); Mean Platelet Volume 8.5 fL (7.4-10.4); Platelet Count 365 thou/uL (130-400); RBC Distribution Width 16.8 % (11.5-14.5); Red Blood Cell (RBC) Count 2.86 mill/uL (4.20-5.40); White Blood Cell (WBC) Count 13.3 thou/uL (4.8-10.8)
[2020-02-12 05:18] LABS: Anion Gap 11 mmol/L (10-20); BUN (Urea Nitrogen) 9 mg/dL (9.8-20.1); Calc. Creatinine Clearance 83 mL/min (70-130); Calcium 8.3 mg/dL (7.8-10.44); Carbon Dioxide 26 mmol/L (23-31); Chloride 102 mmol/L (98-107); Estimated GFR-MDRD Greater than 90; Glucose 69 mg/dL (83-110); Potassium 4.1 mmol/L (3.5-5.1); Sodium 135 mmol/L (136-145)
[2020-02-12] MEDS: HYDROcodone/Acetaminophen 5/325 mg Tablet PO PRN ×2 (05:41→20:13)
[2020-02-12] MEDS: Gabapentin 300 MG CAP PO SCH ×3 (08:16→20:14)
[2020-02-12] MEDS: Enoxaparin Sodium 40 MG/0.4 ML SYRINGE SC SCH (08:16)
[2020-02-12] MEDS: Citalopram 10 MG TAB PO SCH (08:16)
[2020-02-12] MEDS: Cefdinir 300 MG CAP PO SCH (08:16)
--- NOTE | 2020-02-12 10:39 | RAD ---
RADIOGRAPH CHEST 1 VIEW: DATE: 02/12/2020 TIME: 10:04 AM HISTORY: 74-year-old female "status post thoracotomy" COMPARISON: 02/11/2020 FINDINGS: No interval change in the patchy bilateral heterogeneous reticular pulmonary densities. The more foca l ill-defined nodular infiltrate at the lateral left midlung zone appears more faint now. No cardiomegaly. Right-sided implantable vascular access port and left subclavian central venous cathete r with tip in azygos vein, remain. The tiny right apical possible pneumothorax demonstrated on the prior study, is no longer visualized. It could be overlapped and partially obscured by the positionin g of the right-sided chest port. Small bilateral pleural effusions are unchanged. IMPRESSION: 1. No significant interval change in the bilateral reticular infiltrates. 2. The small focal nodular patchy infiltrate in the left lateral midlung zone appears less dense and less conspicuous now. 3. No moderate sized or large pneumothorax visible. 4. No interval change in small bilateral pleural effusions.
--- NOTE | 2020-02-12 12:34 | PDOC.HOSPP ---
- Subjective Encounter Date: 02/12/20 Encounter Time: 10:45 Subjective: Patient seen and examined for Sepsis/Empyema. No CP/SOB. No new complaints. No overnight events - Objective Vital Signs & Weight: Vital Signs (12 hours) Temp Pulse Resp BP Pulse Ox 02/12/20 11:56 99.1 F 90 14 132/70 98 02/12/20 07:37 100 02/12/20 07:33 99.7 F H 79 16 123/64 100 02/12/20 03:02 99.1 F 79 18 145/65 H 100 Weight Admit Weight 118 lb 2.684 oz Weight 120 lb 2.431 oz Most Recent Monitor Data Heart Rate from ECG 78 NIBP 108/61 NIBP BP-Mean 76 Respiration from ECG 23 SpO2 96 I&O: 02/11/20 02/12/20 02/13/20 06:59 06:59 06:59 Intake Total 1410 1020 Output Total 1325 1175 Balance 85 -155 Result Diagrams: 02/12/20 04:40 02/12/20 04:40 EKG Reviewed by me: Yes (Tele SR) Hospitalist ROS - Review of Systems Cardiovascular: denies: chest pain, palpitations, orthopnea, paroxysmal noc. dyspnea, edema, light headedness, other Gastrointestinal: denies: nausea, vomiting, abdominal pain, diarrhea, constipation, melena, hematochezia, other - Medication Medications: Active Medications Generic Name Dose Route Start Last Admin Trade Name Freq PRN Reason Stop Dose Admin Hydrocodone Bitart/Acetaminophen 1 tab 02/07/20 15:59 02/08/20 16:29 [place] 5/325 PO 1 tab Q4H PRN Administration Mild Pain (1-3) Hydrocodone Bitart/Acetaminophen 2 tab 02/07/20 15:59 02/12/20 05:41 [place] 5/325 PO 2 tab Q4H PRN Administration Moderate Pain (4-6) Cefdinir 600 mg 02/11/20 09:00 02/12/20 08:16 Omnicef PO 600 mg DAILY PETAR Administration Citalopram Hydrobromide 10 mg 02/04/20 09:00 02/12/20 08:16 Celexa PO 10 mg DAILY PETAR Administration Enoxaparin Sodium 40 mg 02/04/20 09:00 05/16/20 08:16 Lovenox SC 40 mg 0900 PETAR Administration Fentanyl 50 mcg 02/07/20 15:59 02/10/20 10:53 Sublimaze SLOW IVP 50 mcg Q2H PRN Administration Severe Pain (7-10) Gabapentin 300 mg 02/03/20 21:00 02/12/20 08:16 Neurontin PO 300 mg TID PETAR Administration Hydralazine HCl 10 mg 02/07/20 00:17 02/07/20 00:40 Apresoline SLOW IVP 10 mg Q4H PRN Administration SBP > 180 and HR < 70 Labetalol HCl 20 mg 02/07/20 01:24 02/07/20 02:00 Normodyne SLOW IVP 20 mg Q4H PRN Administration SBP >=180 Sodium Chloride 10 ml 02/07/20 21:00 02/12/20 08:16 Flush - Normal Saline IVF 10 ml Q12HR PETAR Administration - Exam General Appearance: NAD Heart: RRR, no gallops Respiratory: no wheezes Gastrointestinal: soft, non-distended, no guarding, no rigidity Neurological: no new deficit Psychiatric: normal affect, A&O x 3 Hosp A/P - Plan DVT proph w/lovenox, DVT proph w/SCDs Severe Sepsis/Septic shock due to Pneumococcal Pneumonia with bacteremia - POA Parapneumonic effusion/Empyema s/p decortication 02/06 SOLO on CKD 2 - POA Hypokalemia Hyponatremia Gen weakness/Physical deconditioning h/o Breast CA Moderate PEM PLAN: DC Central line Cont Omnicef PT/OT AM labs Chest tube dced 02/09 Cont other meds as above
[2020-02-12] MEDS: Saccharomyces boulardii 250 MG CAP PO SCH (20:14)
[2020-02-13 04:19] LABS: #Basophils 0.1 thou/uL (0.0-0.2); #Eosinphils 0.1 thou/uL (0.0-0.7); #Lymphocytes 1.1 thou/uL (1.20-3.40); #Monocytes 1.1 thou/uL (0.11-0.59); #Neutrophils 9.1 thou/uL (1.40-6.50); %Basophils 0.5 % (0.0-1.0); %Eosinophils 0.7 % (0.0-10.0); %Lymphocytes 9.8 % (21.0-51.0); %Monocytes 9.5 % (0.0-10.0); %Neutrophils 79.6 % (42.0-75.0); Hemoglobin 8.7 g/dL (12.0-16.0); Mean Corpuscular HGB CONC 30.2 g/dL (32.0-36.0); Platelet Count 395 thou/uL (130-400); RBC Distribution Width 16.6 % (11.5-14.5); Red Blood Cell (RBC) Count 2.63 mill/uL (4.20-5.40); White Blood Cell (WBC) Count 11.4 thou/uL (4.8-10.8)
[2020-02-13 04:38] LABS: Phosphorus 2.8 mg/dL (2.3-4.7)
[2020-02-13 04:39] LABS: Anion Gap 10 mmol/L (10-20); BUN (Urea Nitrogen) 9 mg/dL (9.8-20.1); Calc. Creatinine Clearance 75 mL/min (70-130); Calcium 8.1 mg/dL (7.8-10.44); Carbon Dioxide 25 mmol/L (23-31); Chloride 99 mmol/L (98-107); Estimated GFR-MDRD Greater than 90; Glucose 82 mg/dL (83-110); Magnesium 1.8 mg/dL (1.6-2.6); Potassium 3.7 mmol/L (3.5-5.1); Sodium 130 mmol/L (136-145)
--- NOTE | 2020-02-13 07:57 | RAD ---
RADIOGRAPH CHEST 1 VIEW: DATE: 02/13/2020 TIME: 7:34 AM HISTORY: 74-year-old female status post thoracotomy COMPARISON: 02/12/2020 FINDINGS: Left subclavian central venous catheter has been removed. There has been no other interval change. Ri ght subclavian implantable vascular access port remains. No pneumothorax. IMPRESSION: 1. Interval removal of left subclavian central venous catheter. 2. No other interval change. 3. Bilateral infiltrates are unchanged. 4. Small bilateral pleural effusions are unchanged.
[2020-02-13] MEDS: Enoxaparin Sodium 40 MG/0.4 ML SYRINGE SC SCH (08:55)
[2020-02-13] MEDS: Gabapentin 300 MG CAP PO SCH ×3 (08:55→20:12)
[2020-02-13] MEDS: Citalopram 10 MG TAB PO SCH (08:56)
[2020-02-13] MEDS: Cefdinir 300 MG CAP PO SCH (08:56)
[2020-02-13] MEDS: Magnesium Chloride 64 MG TAB PO SCH ×2 (09:27→21:13)
[2020-02-13] MEDS ORDERED: Labetalol HCl 100 MG/20 ML VIAL SLOW IVP PRN (14:04)
[2020-02-13] MEDS ORDERED: cloNIDine 0.1 MG TAB PO PRN (14:04)
--- NOTE | 2020-02-13 14:04 | PDOC.HOSPP ---
- Subjective Encounter Date: 02/13/20 Encounter Time: 08:15 Subjective: Patient seen and examined for Sepsis. No CP/SOB. No new complaints. No overnight events - Objective Vital Signs & Weight: Vital Signs (12 hours) Temp Pulse Resp BP Pulse Ox 02/13/20 11:40 98.0 F 83 20 111/69 100 02/13/20 08:11 96 02/13/20 07:34 97.4 F L 58 L 14 125/70 02/13/20 03:13 98.3 F 79 18 114/68 95 Weight Admit Weight 118 lb 2.684 oz Weight 124 lb 12.506 oz Most Recent Monitor Data Heart Rate from ECG 78 NIBP 108/61 NIBP BP-Mean 76 Respiration from ECG 23 SpO2 96 I&O: 02/12/20 02/13/20 02/14/20 06:59 06:59 06:59 Intake Total 1020 1170 Output Total 1175 700 Balance -155 470 Result Diagrams: 02/13/20 04:01 02/13/20 04:01 EKG Reviewed by me: Yes (Tele SR) Hospitalist ROS - Review of Systems Cardiovascular: denies: chest pain, palpitations, orthopnea, paroxysmal noc. dyspnea, edema, light headedness, other Gastrointestinal: denies: nausea, vomiting, abdominal pain, diarrhea, constipation, melena, hematochezia, other - Medication Medications: Active Medications Generic Name Dose Route Start Last Admin Trade Name Freq PRN Reason Stop Dose Admin Hydrocodone Bitart/Acetaminophen 1 tab 02/07/20 15:59 02/08/20 16:29 [place] 5/325 PO 1 tab Q4H PRN Administration Mild Pain (1-3) Hydrocodone Bitart/Acetaminophen 2 tab 02/07/20 15:59 02/12/20 20:13 [place] 5/325 PO 2 tab Q4H PRN Administration Moderate Pain (4-6) Cefdinir 600 mg 02/11/20 09:00 02/13/20 08:56 Omnicef PO 600 mg DAILY PETAR Administration Citalopram Hydrobromide 10 mg 02/04/20 09:00 02/13/20 08:56 Celexa PO 10 mg DAILY PETAR Administration Enoxaparin Sodium 40 mg 02/04/20 09:00 02/13/20 08:55 Lovenox SC 40 mg 0900 PETAR Administration Fentanyl 50 mcg 02/07/20 15:59 02/10/20 10:53 Sublimaze SLOW IVP 50 mcg Q2H PRN Administration Severe Pain (7-10) Gabapentin 300 mg 02/03/20 21:00 02/13/20 08:55 Neurontin PO 300 mg TID PETAR Administration Hydralazine HCl 10 mg 02/07/20 00:17 02/07/20 00:40 Apresoline SLOW IVP 10 mg Q4H PRN Administration SBP > 180 and HR < 70 Labetalol HCl 20 mg 02/07/20 01:24 02/07/20 02:00 Normodyne SLOW IVP 20 mg Q4H PRN Administration SBP >=180 Magnesium Chloride 64 mg 02/13/20 09:00 02/13/20 09:27 Slow-Mag PO 64 mg BID PETAR Administration Saccharomyces Boulardii 250 mg 02/12/20 21:00 02/12/20 20:14 Florastor PO 250 mg HS PETAR Administration Sodium Chloride 10 ml 02/07/20 21:00 02/13/20 09:29 Flush - Normal Saline IVF 10 ml Q12HR PETAR Administration - Exam General Appearance: NAD Heart: RRR, no gallops Respiratory: no wheezes, rhonchi Respiratory - other findings: Bilateral rales Gastrointestinal: soft, non-tender, non-distended Extremities: no cyanosis, no clubbing Neurological: no new deficit Psychiatric: normal affect, A&O x 3 Hosp A/P - Plan DVT proph w/SCDs Severe Sepsis/Septic shock due to Pneumococcal Pneumonia with bacteremia Parapneumonic effusion/Empyema s/p decortication 02/06 SOLO on CKD 2 - POA Hypokalemia Hyponatremia Gen weakness/Physical deconditioning h/o Breast CA Moderate PEM SVT PLAN: Cont Omnicef Replace Magnesium Echo normal PT/OT AM labs Chest tube dced 02/09 Cont other meds as above
[2020-02-13] MEDS ORDERED: Magnesium 2 GM/50 ML 2 GM in Premix Bag 1 BAG IVPB SCH (14:15)
[2020-02-13] MEDS: HYDROcodone/Acetaminophen 5/325 mg Tablet PO PRN (20:11)
[2020-02-13] MEDS: Saccharomyces boulardii 250 MG CAP PO SCH (20:12)
[2020-02-14 04:27] LABS: #Monocytes 1.2 thou/uL (0.11-0.59); %Eosinophils 0.4 % (0.0-10.0); %Lymphocytes 8.7 % (21.0-51.0); %Monocytes 10.8 % (0.0-10.0); %Neutrophils 80.1 % (42.0-75.0); Hemoglobin 8.4 g/dL (12.0-16.0); Mean Corpuscular HGB CONC 31.8 g/dL (32.0-36.0); Mean Platelet Volume 7.8 fL (7.4-10.4); Platelet Count 394 thou/uL (130-400); RBC Distribution Width 16.3 % (11.5-14.5); Red Blood Cell (RBC) Count 2.48 mill/uL (4.20-5.40); White Blood Cell (WBC) Count 11.3 thou/uL (4.8-10.8)
[2020-02-14 05:03] LABS: Anion Gap 9 mmol/L (10-20); BUN (Urea Nitrogen) 12 mg/dL (9.8-20.1); Calc. Creatinine Clearance 84 mL/min (70-130); Calcium 7.8 mg/dL (7.8-10.44); Carbon Dioxide 28 mmol/L (23-31); Chloride 101 mmol/L (98-107); Estimated GFR-MDRD Greater than 90; Glucose 87 mg/dL (83-110); Sodium 134 mmol/L (136-145)
[2020-02-14] MEDS: HYDROcodone/Acetaminophen 5/325 mg Tablet PO PRN ×2 (06:02→17:57)
[2020-02-14] MEDS: Enoxaparin Sodium 40 MG/0.4 ML SYRINGE SC SCH (09:28)
[2020-02-14] MEDS: Magnesium Chloride 64 MG TAB PO SCH ×2 (09:28→20:40)
[2020-02-14] MEDS: Citalopram 10 MG TAB PO SCH (09:29)
[2020-02-14] MEDS: Cefdinir 300 MG CAP PO SCH (09:30)
[2020-02-14] MEDS: Gabapentin 300 MG CAP PO SCH ×3 (09:30→20:01)
[2020-02-14 11:36] VITALS: BMI 20.7
[2020-02-14] MEDS: Acetaminophen 325 MG TAB PO PRN ×2 (15:20→20:01)
[2020-02-14] MEDS: Saccharomyces boulardii 250 MG CAP PO SCH (20:01)
--- NOTE | 2020-02-14 22:21 | CON ---
DATE OF CONSULTATION: 02/14/2020 REASON FOR CONSULTATION: Pause and SVT. HISTORY OF PRESENT ILLNESS: Ms. Sinha is a 74-year-old woman who presented to [facility] with cough, shortness of breath in early January. She is found to have severe sepsis with septic shock due to pneumococcal pneumonia with bacteremia. CV Surgery was consulted as she was also found to have an empyema/parapneumonic effusion. They had hoped to do a simple draining but ended up requiring a full decortication for treatment. Of note, she also has bilateral breast carcinoma and is undergoing treatment with Dr. Grady. She has since had her chest tube removed, which has greatly added to her comfort, but on telemetry, she was found to have paroxysmal SVT episodes, then recently a pause. EP consultation has been requested for evaluation of her arrhythmias. Ms. Sinha is resting comfortably in bed. She feels weak and tired, but voices no cardiac-specific complaints today. She is not aware of any heart racing, palpitations, chest pain, pressure, syncope, near syncope, stroke, or stroke- like symptoms. REVIEW OF SYSTEMS: A 12-point review of systems is otherwise unremarkable and as per HPI. PAST MEDICAL HISTORY: 1. Hypertension. 2. Bilateral breast carcinoma. 3. Arthritis. 4. Gout. 5. Hypertension. HOME MEDICATIONS: 1. [place] p.r.n. 2. Gabapentin 300 mg t.i.d. 3. Citalopram 10 mg daily. FAMILY HISTORY: Positive for heart disease. SOCIAL HISTORY: Denies alcohol, tobacco, or illicit drug use. ALLERGIES: NO KNOWN DRUG ALLERGIES. OBJECTIVE: VITAL SIGNS: Temperature 98.0, pulse 73, blood pressure 118/72, respirations 16, and oxygen 98% on room air. GENERAL: The patient is alert, oriented. Speech is clear. Affect is appropriate. She is in no apparent distress at the time of the exam. She is resting comfortably in bed. NECK: Supple without jugular venous distention. Trachea is midline. There is no lymphadenopathy. HEART: Rate is currently irregularly irregular with crisp S1 and S2. No significant murmur, rub, or gallop appreciated. LUNGS: There are no wheezes or rhonchi, but positive for bilateral rales. ABDOMEN: Soft and nontender without palpable masses. No clubbing, cyanosis, or edema of the extremities. NEUROLOGIC: Grossly intact with no focal deficits. LABORATORY DATA: Telemetry and EKGs show largely sinus rhythm. There are some episodes of paroxysmal atrial tachycardia less than 6 seconds and approximately 160 to 170 beats per minute. There is also an asymptomatic 5- second pause seen. Echocardiogram on 02/06/2020: EF 55% to 60%. LV normal size. Atrium normal size bilaterally. No pericardial effusion. IMPRESSION: 1. Asymptomatic 5-second pause. 2. Wide comlex tachycardia - likely nonsustained atrial tachycardia with aberration 3. Bacteremia. 4. Bilateral breast carcinoma. PLAN AND RECOMMENDATIONS: My recommendation would be for continued observation. She is asymptomatic with the pause and tachycardia. Her WCT appears to be an atrial tachycardia with abberancy. should seh develop symptoims or furhter negative chronotropic agents are deemed necessary, pacemaker implant could be considered, but in view of her recent bacteremia, this would be a difficult proposiition. Possibly Micra device is an alternative. I would recommend a 14-30 day event monitor after discharge. Thank you for allowing me to participate in the care of this patient. Job ID: [id number] NITZA
[2020-02-15 05:23] LABS: Anion Gap 13 mmol/L (10-20); BUN (Urea Nitrogen) 11 mg/dL (9.8-20.1); Calc. Creatinine Clearance 71 mL/min (70-130); Carbon Dioxide 24 mmol/L (23-31); Chloride 101 mmol/L (98-107); Estimated GFR-MDRD Greater than 90; Glucose 70 mg/dL (83-110); Potassium 4.4 mmol/L (3.5-5.1); Sodium 134 mmol/L (136-145)
[2020-02-15 05:27] LABS: #Eosinphils 0.1 thou/uL (0.0-0.7); #Monocytes 1.2 thou/uL (0.11-0.59); #Neutrophils 8.6 thou/uL (1.40-6.50); %Basophils 0.1 % (0.0-1.0); %Eosinophils 0.7 % (0.0-10.0); %Lymphocytes 8.7 % (21.0-51.0); %Monocytes 11.4 % (0.0-10.0); %Neutrophils 79.1 % (42.0-75.0); Hemoglobin 9.1 g/dL (12.0-16.0); Mean Corpuscular HGB CONC 29.9 g/dL (32.0-36.0); Mean Corpuscular Hemoglobin 32.4 pg (27.0-31.0); Mean Platelet Volume 8.1 fL (7.4-10.4); Platelet Count 364 thou/uL (130-400); RBC Distribution Width 16.3 % (11.5-14.5); Red Blood Cell (RBC) Count 2.82 mill/uL (4.20-5.40); White Blood Cell (WBC) Count 10.9 thou/uL (4.8-10.8)
--- NOTE | 2020-02-15 07:31 | RAD ---
Chest one view HISTORY: Dyspnea. Chest surgery. Follow-up. COMPARISON: 02/13/2020. FINDINGS: Cardiac silhouette is magnified by projection. Pulmonary vasculature upper limits of normal . Mediastinum is midline with aortic calcification and a right subclavian Port-A-Cath. Patchy areas of parenchymal infiltrate throughout each lung are similar in appearance to the previous exam. No evidence of pneumothorax. Postoperative changes left axilla. IMPRESSION : Patchy bilateral parenchymal infiltrates and other findings are stable.
--- NOTE | 2020-02-15 07:46 | PDOC.HOSPP ---
- Subjective Encounter Date: 02/14/20 Encounter Time: 07:30 Subjective: Patient seen and examined for Sepsis.No new cough/SOB No new complaints. No overnight events - Objective Vital Signs & Weight: Vital Signs (12 hours) Temp Pulse Resp BP Pulse Ox 02/15/20 07:05 94 L 02/15/20 07:03 99.5 F 93 16 104/57 L 94 L 02/15/20 04:00 98.7 F 90 20 109/60 93 L 02/14/20 19:51 98.7 F 75 16 107/57 L 92 L Weight Admit Weight 118 lb 2.684 oz Weight 126 lb 9.6 oz Most Recent Monitor Data Heart Rate from ECG 78 NIBP 108/61 NIBP BP-Mean 76 Respiration from ECG 23 SpO2 96 I&O: 02/14/20 02/15/20 02/16/20 06:59 06:59 06:59 Intake Total 1490 1200 Output Total 2750 1550 Balance -1260 -350 Result Diagrams: 02/15/20 04:53 02/15/20 04:53 EKG Reviewed by me: Yes (Tele SR/ SVT yesterjoe) Hospitalist ROS - Review of Systems Respiratory: denies: cough, dry, shortness of breath, hemoptysis, SOB with excertion, pleuritic pain, sputum, wheezing, other Cardiovascular: denies: chest pain, palpitations, orthopnea, paroxysmal noc. dyspnea, edema, light headedness, other - Medication Medications: Active Medications Generic Name Dose Route Start Last Admin Trade Name Freq PRN Reason Stop Dose Admin Acetaminophen 650 mg 02/03/20 15:54 02/14/20 20:01 Tylenol PO 650 mg Q4H PRN Administration Headache/Fever/Mild Pain (1-3) Hydrocodone Bitart/Acetaminophen 1 tab 02/07/20 15:59 02/14/20 17:57 [place] 5/325 PO 1 tab Q4H PRN Administration Mild Pain (1-3) Cefdinir 600 mg 02/11/20 09:00 02/14/20 09:30 Omnicef PO 600 mg DAILY PETAR Administration Citalopram Hydrobromide 10 mg 02/04/20 09:00 02/14/20 09:29 Celexa PO 10 mg DAILY PETAR Administration Enoxaparin Sodium 40 mg 02/04/20 09:00 02/14/20 09:28 Lovenox SC 40 mg 0900 PETAR Administration Gabapentin 300 mg 02/03/20 21:00 02/14/20 20:01 Neurontin PO 300 mg TID PETAR Administration Hydralazine HCl 10 mg 02/07/20 00:17 02/07/20 00:40 Apresoline SLOW IVP 10 mg Q4H PRN Administration SBP > 180 and HR < 70 Magnesium Chloride 64 mg 02/13/20 09:00 02/14/20 20:40 Slow-Mag PO 64 mg BID PETAR Administration Saccharomyces Boulardii 250 mg 02/12/20 21:00 02/14/20 20:01 Florastor PO 250 mg HS PETAR Administration Sodium Chloride 10 ml 02/07/20 21:00 02/14/20 20:02 Flush - Normal Saline IVF 10 ml Q12HR PETAR Administration - Exam General Appearance: NAD Heart: RRR, no gallops Respiratory: no wheezes, rhonchi Gastrointestinal: non-tender Extremities: no cyanosis, no clubbing Hosp A/P - Plan DVT proph w/SCDs Severe Sepsis/Septic shock due to Pneumococcal Pneumonia with bacteremia Parapneumonic effusion/Empyema s/p decortication 02/06 - Chest tube dced 02/09 SOLO on CKD 2 Hypokalemia Hyponatremia Gen weakness/Physical deconditioning h/o Breast CA Moderate PEM SVT PLAN: Cont Omnicef Echo normal EF Not started on BB due to BP on lower side PT/OT AM labs Cont other meds as above DC to SNF in 24 hr if stable Update Pt had sinus pause - Will consult EP
[2020-02-15] MEDS: Magnesium Chloride 64 MG TAB PO SCH ×2 (08:39→20:49)
[2020-02-15] MEDS: Enoxaparin Sodium 40 MG/0.4 ML SYRINGE SC SCH (08:39)
[2020-02-15] MEDS: Gabapentin 300 MG CAP PO SCH ×3 (08:39→20:49)
[2020-02-15] MEDS: Citalopram 10 MG TAB PO SCH (08:39)
[2020-02-15] MEDS: Cefdinir 300 MG CAP PO SCH (08:39)
--- NOTE | 2020-02-15 16:27 | PDOC.EP ---
- Subjective Date: 02/15/20 Time: 08:00 Interval History: Ms. Sinha voices no cardiac concerns or complaints today but feels quite discouraged and run down. - Review of Systems Constitutional: reports: weakness. denies: chills, fever, malaise, sweats Respiratory: reports: shortness of breath. denies: cough, dry, hemoptysis, pleuritic pain, sputum, wheezing Cardiology: denies: chest pain, edema, heart racing, light headedness, passing out Gastrointestinal: denies: abdominal pain, constipation, diarrhea Musculoskeletal: denies: unstable gait, falls, neck pain - Objective Allergies/Adverse Reactions: Allergies Allergy/AdvReac Type Severity Reaction Status Date / Time No Known Drug Allergies Allergy Verified 06/29/19 12:46 Current Medications Acetaminophen (Tylenol) 650 mg PO Q4H PRN PRN Reason: Headache/Fever/Mild Pain (1-3) Last Admin: 02/14/20 20:01 Dose: 650 mg Hydrocodone Bitart/Acetaminophen ([place] 5/325) 1 tab PO Q4H PRN PRN Reason: Mild Pain (1-3) Last Admin: 02/14/20 17:57 Dose: 1 tab Albuterol/Ipratropium (Duoneb) 3 ml NEB [id number] PRN PRN Reason: Wheezing Cefdinir (Omnicef) 600 mg PO DAILY [facility] Last Admin: 02/15/20 08:39 Dose: 600 mg Citalopram Hydrobromide (Celexa) 10 mg PO DAILY [facility] Last Admin: 02/15/20 08:39 Dose: 10 mg Enoxaparin Sodium (Lovenox) 40 mg SC 0900 [facility] Last Admin: 02/15/20 08:39 Dose: 40 mg Gabapentin (Neurontin) 300 mg PO TID [facility] Last Admin: 02/15/20 15:39 Dose: 300 mg Hydralazine HCl (Apresoline) 10 mg SLOW IVP Q4H PRN PRN Reason: SBP > 180 and HR < 70 Last Admin: 02/07/20 00:40 Dose: 10 mg Magnesium Chloride (Slow-Mag) 64 mg PO BID [facility] Last Admin: 02/15/20 08:39 Dose: 64 mg Miscellaneous Medication (Pharmacy To Dose) 1 each IVPB PRN PRN PRN Reason: Pharmacy to dose Ondansetron HCl (Zofran) 4 mg IVP Q6H PRN PRN Reason: Nausea/Vomiting Saccharomyces Boulardii (Florastor) 250 mg PO HS [facility] Last Admin: 02/14/20 20:01 Dose: 250 mg Senna/Docusate Sodium (Senokot S) 2 tab PO BIDPRN PRN PRN Reason: Constipation Sodium Chloride (Flush - Normal Saline) 10 ml IVF Q12HR [facility] Last Admin: 02/15/20 08:40 Dose: 10 ml Vital Signs & Weight: Vital Signs Temp Pulse Pulse Pulse Resp BP BP 02/15/20 15:39 98.4 F 90 16 02/15/20 11:19 99.1 F 86 14 02/15/20 09:40 105 H 94 128/59 L 111/56 L 02/15/20 07:05 02/15/20 07:03 99.5 F 93 16 BP BP Pulse Ox 02/15/20 15:39 108/56 L 92 L 02/15/20 11:19 109/58 L 94 L 02/15/20 09:40 02/15/20 07:05 94 L 02/15/20 07:03 104/57 L 94 L Admit Weight 118 lb 2.684 oz Weight 126 lb 9.6 oz I/O: I/O 02/14/20 02/15/20 02/16/20 06:59 06:59 06:59 Intake Total 1490 1200 Output Total 2750 1550 Balance -1260 -350 - Physical Exam General: alert & oriented x3, no apparent distress, cachectic, speech clear HEENT: mucus membranes moist, normocephaly, EOMI Neck: supple neck, no JVD/HJR, no lymphadenopathy Cardiology: regular rate and rhythm, no murmur, PMI nondisplaced Lungs: clear to auscultation, no wheeze, rales, rhonchi - Labs Result Diagrams: 02/15/20 04:53 02/15/20 04:53 - EKG Interpretation EKG Method: Telemetry EKG shows: Sinus rhythm - Assessment/Plan Assessment/Plan: 1. Asymptomatic 5-second pause. -single episode without recurrence 2. Wide comlex tachycardia - likely nonsustained atrial tachycardia with abberation 3. Bacteremia. 4. Bilateral breast carcinoma. My recommendation would be for continued observation. She is asymptomatic with the pause and tachycardia. Her WCT appears to be an atrial tachycardia with abberancy. I would recommend a 30 day event monitor after discharge. Thank you for allowing me to participate in the care of this patient.
[2020-02-15] MEDS: Saccharomyces boulardii 250 MG CAP PO SCH (20:49)
--- NOTE | 2020-02-16 07:28 | PDOC.HOSPP ---
- Subjective Encounter Date: 02/15/20 Encounter Time: 16:00 Subjective: Patient seen and examined for Sepsis/SVT. No CP/SOB. No new complaints. No overnight events - Objective Vital Signs & Weight: Vital Signs (12 hours) Temp Pulse Resp BP Pulse Ox 02/16/20 03:51 98.2 F 71 18 115/58 L 92 L 02/15/20 20:50 98.9 F 90 18 123/65 92 L Weight Admit Weight 118 lb 2.684 oz Weight 127 lb 1 oz Most Recent Monitor Data Heart Rate from ECG 78 NIBP 108/61 NIBP BP-Mean 76 Respiration from ECG 23 SpO2 96 I&O: 02/15/20 02/16/20 02/17/20 06:59 06:59 06:59 Intake Total 1200 1200 Output Total 1550 1050 Balance -350 150 Result Diagrams: 02/15/20 04:53 02/15/20 04:53 EKG Reviewed by me: Yes (Tele SR) Hospitalist ROS - Review of Systems Cardiovascular: denies: chest pain, palpitations, orthopnea, paroxysmal noc. dyspnea, edema, light headedness, other Gastrointestinal: denies: nausea, vomiting, abdominal pain, diarrhea, constipation, melena, hematochezia, other - Medication Medications: Active Medications Generic Name Dose Route Start Last Admin Trade Name Freq PRN Reason Stop Dose Admin Acetaminophen 650 mg 02/03/20 15:54 02/14/20 20:01 Tylenol PO 650 mg Q4H PRN Administration Headache/Fever/Mild Pain (1-3) Hydrocodone Bitart/Acetaminophen 1 tab 02/07/20 15:59 02/14/20 17:57 [place] 5/325 PO 1 tab Q4H PRN Administration Mild Pain (1-3) Cefdinir 600 mg 02/11/20 09:00 02/15/20 08:39 Omnicef PO 600 mg DAILY PETAR Administration Citalopram Hydrobromide 10 mg 02/04/20 09:00 02/15/20 08:39 Celexa PO 10 mg DAILY PETAR Administration Enoxaparin Sodium 40 mg 02/04/20 09:00 02/15/20 08:39 Lovenox SC 40 mg 0900 PETAR Administration Gabapentin 300 mg 02/03/20 21:00 02/15/20 20:49 Neurontin PO 300 mg TID PETAR Administration Hydralazine HCl 10 mg 02/07/20 00:17 02/07/20 00:40 Apresoline SLOW IVP 10 mg Q4H PRN Administration SBP > 180 and HR < 70 Magnesium Chloride 64 mg 02/13/20 09:00 02/15/20 20:49 Slow-Mag PO 64 mg BID PETAR Administration Saccharomyces Boulardii 250 mg 02/12/20 21:00 02/15/20 20:49 Florastor PO 250 mg HS PETAR Administration Sodium Chloride 10 ml 02/07/20 21:00 02/15/20 20:49 Flush - Normal Saline IVF 10 ml Q12HR PETAR Administration - Exam General Appearance: NAD Heart: RRR, no gallops Respiratory: no wheezes, rhonchi Gastrointestinal: soft, non-tender, normal bowel sounds Extremities: no cyanosis, no clubbing Hosp A/P - Plan DVT proph w/SCDs Severe Sepsis/Septic shock due to Pneumococcal Pneumonia with bacteremia Parapneumonic effusion/Empyema s/p decortication 02/06 - Chest tube dced 02/09 SVT/Sinus pause SOLO on CKD 2 Hypokalemia Hyponatremia Gen weakness/Physical deconditioning h/o Breast CA Moderate PEM PLAN: Cont Omnicef EP input appreciated Cont Tele monitoring Cont other meds as above DC to SNF if ok with EP
[2020-02-16] MEDS: Citalopram 10 MG TAB PO SCH (08:20)
[2020-02-16] MEDS: Cefdinir 300 MG CAP PO SCH (08:20)
[2020-02-16] MEDS: Enoxaparin Sodium 40 MG/0.4 ML SYRINGE SC SCH (08:21)
[2020-02-16] MEDS: Magnesium Chloride 64 MG TAB PO SCH (08:21)
[2020-02-16] MEDS: Gabapentin 300 MG CAP PO SCH (08:21)
[2020-02-16] MEDS: HYDROcodone/Acetaminophen 5/325 mg Tablet PO PRN (08:22)
--- NOTE | 2020-02-16 11:58 | DIS ---
DATE OF ADMISSION: 02/03/2020 DATE OF DISCHARGE: 02/16/2020 DISCHARGE DISPOSITION: assisted facility. The case was discussed with Dr. Dowell. ALLERGIES: NO KNOWN DRUG ALLERGIES. DISCHARGE MEDICATIONS: Omnicef 600 mg daily for 3 more days. All other home medications were left unchanged. SIGNIFICANT LABORATORY DATA: WBC on admission was 62.9 with 43% bandemia. Sodium 130. Potassium 2.7. Creatinine maximum was 1.67 and at discharge is 0.64. PH of pleural fluid was 6.9 with WBC 1469, RBC 8691. COVID testing was negative. Blood cultures two of two positive for strep pneumonia. Bacterial culture from the lung tissue showed strep pneumonia. INPATIENT PROCEDURES: On February 03, 2020, the patient underwent left subclavian triple-lumen catheter. On February 07, 2020, the patient underwent right thoracoscopic decortication for empyema. INPATIENT CONSULTANTS: 1. Electrophysiology, Dr. Cedeño. 2. Pulmonary, Dr. Patiño. 3. Cardiovascular, Dr. Chacon. DISCHARGE CONDITION: The patient was seen and examined on the day of discharge. Denies any new complaints. PHYSICAL EXAMINATION: Vital signs on the day of discharge showed temperature 97.8, pulse rate of 78, blood pressure of 115/57, respirations of 14, O2 saturation of 100% on room air. BRIEF HOSPITAL COURSE: The patient is a 74-year-old female with metastatic breast cancer, followed by Dr. Johnson, presented to the hospital on February 06, 2020, with cough and shortness of breath. Her workup was consistent with right-sided pneumonia with pericardial effusion. Blood culture was positive for Strep pneumoniae. She was monitored in the intensive care unit. She was started on cefepime, azithromycin, vancomycin with IV fluids and pressors. She then underwent thoracoscopic drainage with decortication by Dr. Chacon. The chest tube was discontinued on February 09. The patient was waiting on chcf at this point. While on the telemonitor, the patient developed supraventricular tachycardia. Next day, the patient had a 5-second pause. Please note that the patient was not on any beta blockers at this time. She was evaluated by Electrophysiology, who recommended an event monitor. The patient was asymptomatic during the above events. She appears stable for discharge. FINAL DIAGNOSES: 1. Severe sepsis/septic shock due to pneumococcal pneumonia with bacteremia. 2. Parapneumonic effusion/empyema, status post decortication on February 06. 3. Chest tube removal on February 09. 4. Supraventricular tachycardia with a 5-second sinus pause. 5. Acute kidney injury on chronic kidney disease stage 2, resolved. 6. Hypokalemia. 7. Hyponatremia. 8. Generalized weakness with physical deconditioning. 9. History of metastatic breast cancer with bilateral mastectomies. 10. Moderate protein energy malnutrition. TIME SPENT: Time coordinating the discharge of this patient was 35 minutes. Job ID: [id number]
[2020-02-16 12:53] VITALS: BP 111/59; TEMP 98.2
--- NOTE | 2020-02-16 13:06 | PDOC.EP ---
- Subjective Date: 02/16/20 Time: 13:03 Interval History: follow-up regarding pauses and wide complex tachycardia. Patient is eager to discharge she is frustrated and discouraged. She denies any awareness of heart racing or palpitations dizziness syncope near syncope or stroke-like symptoms - Review of Systems Constitutional: reports: malaise, weakness. denies: chills, fever Respiratory: denies: cough, pleuritic pain, wheezing Cardiology: denies: chest pain, edema, heart racing, light headedness, orthopnea , paroxysmal noc. dyspnea, palpitations, passing out, pleuritic pain, pressure, swelling - Objective Allergies/Adverse Reactions: Allergies Allergy/AdvReac Type Severity Reaction Status Date / Time No Known Drug Allergies Allergy Verified 06/29/19 12:46 Vital Signs & Weight: Vital Signs Temp Pulse Resp BP Pulse Ox 02/16/20 12:00 98.2 F 79 14 111/59 L 94 L 02/16/20 07:40 97.8 F 78 14 115/57 L 100 02/16/20 03:51 98.2 F 71 18 115/58 L 92 L Admit Weight 118 lb 2.684 oz Weight 127 lb 1 oz I/O: I/O 02/15/20 02/16/20 02/17/20 06:59 06:59 06:59 Intake Total 1200 1200 Output Total 1550 1050 Balance -350 150 - Physical Exam General: alert & oriented x3, appears well, no apparent distress, speech clear, affect appropriate HEENT: mucus membranes moist, mucus membranes dry Neck: supple neck, no JVD/HJR, no lymphadenopathy Cardiology: regular rate and rhythm, PMI nondisplaced Lungs: clear to auscultation, no wheeze, rales, rhonchi Neurology: cranial nerve 2-12 intact, grossly intact, no lateralizing findings Abdomen: unremarkable, no pulsations/bruits - Labs Result Diagrams: 02/15/20 04:53 02/15/20 04:53 - EKG Interpretation EKG Method: Telemetry EKG shows: Sinus rhythm - Assessment/Plan Assessment/Plan: 1. Asymptomatic 5-second pause. -single episode without recurrence 2. Wide comlex tachycardia - likely nonsustained atrial tachycardia with abberation 3. Bacteremia. 4. Bilateral breast carcinoma. She was asymptomatic with the pause and tachycardia. Her WCT appears to be an atrial tachycardia with abberancy. I would recommend a 30 day event monitor after discharge. I placed an event monitor on the patient today which she will wear for 30 days then mailed back. Follow-up in March as listed in the discharge plan.
== END 2020-02-16 12:42 | disposition swing bed (61) | DRG 853 ==
LOC: ERS 10:44 → CCU 18:35 → 2NO 02-05 10:20
PROVIDERS: ADMIT Internal Medicine; ATTEND Internal Medicine
PROC: 02HV33Z Insertion of Infusion Device into Superior Vena Cava, Percutaneous Approach (ICD-10-PCS; 2020-02-03)
PROC: 0BCK4ZZ Extirpation of Matter from Right Lung, Percutaneous Endoscopic Approach (ICD-10-PCS; principal; 2020-02-07)
DX: A40.3 Sepsis due to Streptococcus pneumoniae (principal); R65.21 Severe sepsis with septic shock; J13 Pneumonia due to Streptococcus pneumoniae; J86.9 Pyothorax without fistula; I47.1 Supraventricular tachycardia; N17.9 Acute kidney failure, unspecified; E87.1 Hypo-osmolality and hyponatremia; E44.0 Moderate protein-calorie malnutrition; J90 Pleural effusion, not elsewhere classified; Z20.828 Contact with and (suspected) exposure to other viral communicable diseases; N18.2 Chronic kidney disease, stage 2 (mild); I12.9 Hypertensive chronic kidney disease with stage 1 through stage 4 chronic kidney disease, or unspecified chronic kidney disease; M19.90 Unspecified osteoarthritis, unspecified site; M10.9 Gout, unspecified; R53.81 Other malaise; E87.6 Hypokalemia; Z68.21 Body mass index [BMI] 21.0-21.9, adult; Z85.3 Personal history of malignant neoplasm of breast; Z79.899 Other long term (current) drug therapy
CPT/HCPCS: 36415; 36416; 51701; 71045; 71250; 71275; 80048; 80053; 80076; 80202; 81003; 81015; 82150; 82248; 82533; 82550; 82945; 83605; 83615; 83690; 83735; 83880; 83986; 84100; 84157; 84443; 84484; 84550; 85025; 85060; 85379; 86850; 86900; 86901; 87040; 87070; 87077; 87102; 87116; 87149; 87186; 87205; 87206; 87635; 88112; 88305; 89051; 93005; 93306; 96361; 96365; 96366; 96367; 96368; J0171; J0360; J0456; J0692; J0696; J1100; J1265; J1642; J1650; J1885; J1940; J2001; J2250; J2405; J2704; J3010; J3370; J3475; J3480; J3490; J7050; P9047; Q9967; S0020; U0003

== ENCOUNTER 2020-02-28 12:43 | Day surgery (SDC) | payer MEDICARE ==
[2020-02-28] MEDS ORDERED: Sodium Chloride 0.9% 20 ML ONE (12:57)
[2020-02-28] MEDS ORDERED: Acetaminophen 500 MG TAB PO SCH (13:00)
[2020-02-28] MEDS ORDERED: diphenhydrAMINE 25 MG CAP PO SCH (13:00)
[2020-02-28 15:50] VITALS: BP 154/87; TEMP 97.8
[2020-02-28 15:54] LABS: Hemoglobin 8.9 g/dL (12.0-16.0)
== END 2020-02-28 15:50 | disposition home or self-care (01) ==
LOC: ONC/OP 12:43
PROVIDERS: ATTEND Internal Medicine Hematology & Oncology
PROC: 30233N1 Transfusion of Nonautologous Red Blood Cells into Peripheral Vein, Percutaneous Approach (ICD-10-PCS; principal; 2020-02-28)
DX: D64.9 Anemia, unspecified (principal); D69.6 Thrombocytopenia, unspecified
CPT/HCPCS: 36430; 80053; 82248; 83615; 84100; 84443; 84550; 85014; 85018; 86850; 86900; 86901; J1642; P9016; Q0163

== ENCOUNTER 2020-03-21 14:26 | Outpatient (CLI) | payer MEDICARE, MEDICAID ==
--- NOTE | 2020-03-21 14:57 | RAD ---
EXAM: Chest PA and lateral: HISTORY: Empyema COMPARISON: 08/17/2018, 02/15/2020 FINDINGS: Lines and tubes: Stable right-sided Port-A-Cath Heart: Normal cardiac silhouette Aorta: Atherosclerosis Pulmonary vessels: Normal Costophrenic angles: Bilateral pleural effusions. Lungs: Improved aeration lung parenchyma. Residual opacities do remain. Pneumothorax: No pneumothorax. Left apical pleural thickening. Osseous structures: No acute osseous abnormalities. IMPRESSION: 1. Bibasilar pleural effusion. 2. Improved aeration lung parenchyma. Residual interstitial opacities do remain.
== END 2020-03-21 14:27 | disposition home or self-care (01) ==
LOC: RAD 14:26
PROVIDERS: ATTEND Thoracic Surgery (Cardiothoracic Vascular Surgery)
DX: J86.9 Pyothorax without fistula (principal); J90 Pleural effusion, not elsewhere classified; R91.8 Other nonspecific abnormal finding of lung field
CPT/HCPCS: 71046

== ENCOUNTER 2020-04-06 12:30 | Outpatient (CLI) | payer MEDICARE, MEDICAID ==
--- NOTE | 2020-04-06 14:24 | PET ---
PET CT: 04/06/20 HISTORY: Malignant neoplasm of central portion of the left breast. Breast cancer. Evaluate for response to tr eatment. The patient is currently undergoing chemotherapy. TECHNIQUE: PET scan using CT attenuation correction was performed from the base of the brain to the proximal thi ghs following the intravenous administration of 12 millicuries of 15-fluorodeoxyglucose in the right wrist. COMPARISON: PET CT dated 12/08/19. FINDINGS: There is continued hypermetabolic activity in the sella with a maximum SUV of 15 (previously 20). There are patchy areas of increased uptake in the lungs bilaterally with an SUV of 4.2 in the left an terior upper lobe, SUV of 4 inferior to this, 3.3 in the lingula, 2.8 in the posterior left lower lob e, 5.2 in the posterior medial aspect of the right lower lobe and 2.7 in the right middle lobe. Some of these findings are new since the last exam. No thania hypermetabolism is seen in the neck, chest, axillae, abdomen or pelvis. No hypermetabolic li john or adrenal lesions are seen. There is a focus of increased uptake in the inferior right scapula with an SUV of 2.5. There is increased soft tissue uptake posterior to the sacrum and coccyx with an SUV of 5. A sinus tr act/fistula is noted on the CT scan. Clinical correlation is recommended. The CT scan used for attenuation correction demonstrates a tiny left pleural effusion. No right pleur al effusion or ascites are seen. IMPRESSION: Interval worsening since the previous exam of 12/08/2019. POS: RAFIQ
== END 2020-04-06 12:31 | disposition home or self-care (01) ==
LOC: PET 12:30
PROVIDERS: ATTEND Internal Medicine Hematology & Oncology
DX: C50.112 Malignant neoplasm of central portion of left female breast (principal)
CPT/HCPCS: 78815; A9552